=== PATIENT | female | born 1945 | race Caucasian/White ===

== ENCOUNTER 2018-07-13 14:12 | Inpatient (IN) | payer MEDICARE, OTHER, SELFPAY ==
[2018-07-13] VITALS (49 sets, daily range): BP systolic 113–177; BP diastolic 63–115; PULSE 91–152; RESP 2–44; TEMP 36.5–37.9; O2SAT 87–99
--- NOTE | 2018-07-13 14:29 | DI.RAD_ITS ---
SYMPTOM/DIAGNOSIS: SOB, HYPOXIA PORTABLE AP CHEST: Comparison is made with 07/23/16. The heart size is normal. There are underlying emphysematous and fibrotic changes. There are old bilateral rib fractures. No superimposed infiltrate, effusion or pulmonary edema is seen. There is a right shoulder prosthesis. IMPRESSION: No acute abnormality.
--- NOTE | 2018-07-13 14:33 | ED.GENADUL_ITS ---
Discharge Plan Disposition Patient Disposition: [facility] INPATIENT Condition: Stable Discharge Details Chief Complaint: SOB Clinical Impression: COPD with acute exacerbation, Tachycardia, Acute respiratory distress, Hypoxia Primary Care Provider: Katina Lopez ED Provider: Gabby Faith Home Meds and New Rx's Prescriptions: No Action pen needle, diabetic [BD Ultra-Fine Martha Pen Needle] 1 EACH needle 1 ea Miscellaneous DAILY Qty: 100 RF: 3 albuterol sulfate [Ventolin HFA] 8 GM HFA aerosol inhaler 2 puff Inhalation Q4H PRN PRNQty: 3 RF: 4 calcium carbonate-vitamin D3 1 EACH tablet 1 ea PO DAILY Qty: 90 RF: 6 benzonatate 100 MG capsule 100 mg PO TID PRNQty: 25 RF: 1 prednisone 5 MG tablet 5 - 10 mg PO DAILY Qty: 90 RF: 1 sulfamethoxazole-trimethoprim [Bactrim DS] 1 EACH tablet 1 tab-cap PO BID Q 3 WEEKS Qty: 56 RF: 4 Incruse Ellipta 62.5 MCG blister with device 1 inh Inhalation DAILY Qty: 1 RF: 6 Perforomist 20 MCG/2 ML solution for nebulization 20 mcg Inhalation BID Qty: 60 RF: 6 amlodipine 10 mg tablet 10 mg PO DAILY Qty: 30 RF: 12 enalapril maleate [Vasotec] 20 mg tablet 20 mg PO as directed Qty: 30 RF: 12 lansoprazole 30 mg capsule,delayed release(DR/EC) 30 mg PO DAILY Qty: 90 RF: 2 venlafaxine 75 mg capsule,extended release 24hr 75 mg PO DAILY Qty: 90 RF: 2 leflunomide 10 mg tablet 10 mg PO DAILY Qty: 90 RF: 4 clonazepam 1 mg tablet 1 mg PO QPM PRN (Reason: anxiety) Qty: 30 RF: 2 budesonide 0.5 mg/2 mL suspension for nebulization 0.5 mg Inhalation DAILY RF: 0 Medical Decision Making 1430 --73yo female with a history of COPD, lupus, multiple sclerosis, hyperte nsion, anxiety, depression, GERD and breast cancer who presents for progressively worsening shortness of breath over the past week, worse this morning. She finished a prednisone taper yesterday. Heart rate 140s, respirations 40s, Afebrile. O2 sat 87% on 2 L nasal cannula. This increased to 92% on nonrebreather. Patient states her baseline O2 on room air is low 90s. Pursed lip breathing, accessory muscle use noted upon entry to ED room. Diminished breath sounds throughout on lung exam. Differential diagnosis includes an acute COPD exacerbation, acute CHF, pneumonia, IA. Patient is DNR/DNI. Will place an IV, labs, EKG, portable chest x-ray, DuoNeb, Solu-Medrol and place on BiPAP. EKG notes a rate of 144, sinus tachycardia, no acute ST findings. 1510 --patient improved on BiPAP. Respiratory rate 20s-30s. Appears more comfortable. Air movement improved, slight increase in rhonchi after multiple nebs. 1545 --labs and imaging reviewed. White blood cell count 21 which is likely due to recent steroids. Troponin negative. BNP normal. Chest x-ray unremarkable. Patient now on 3 L nasal cannula and O2 sat low 90s. Patient appears much more comfortable. Heart rate still 130s. Patient states she normally runs between 140s and 160s. Due to respiratory distress with BiPAP on arrival, will admit for continued observation with nebs and steroids. 1600 --d/w hospitalist - accepts pt for admission. Due to patient's COPD, she may benefit from antibiotics. She has tolerated cephalosporins in the past. Will give a dose of Rocephin and Zithromax IV. Medical Records Medical records reviewed: Yes I reviewed the patient's medical records. Imaging Data Radiologic Study: Radiologist's impression: XR Chest, 1 View EXAM DATE/TIME: 07/13/2018 3:08 PM FINDINGS: Diffuse interstitial lung disease most suggestive of scarring. No definite focal consolidation. Prior right shoulder replacement. IMPRESSION: No definite evidence of acute cardiopulmonary disease. Lab Data Lab results reviewed: Yes I reviewed the patient's lab results. Laboratory Tests Range/Units 07/13/18 07/13/18 14:50 14:50 WBC (4.4-10.8) k/cumm 21.57 H RBC (4.00-5.20) m/cumm 5.22 H Hgb (12.0-15.5) g/dL 13.8 Hct (36.0-46.0) % 43.6 MCV (80-95) fL 83.5 MCH (27.0-33.0) pg 26.4 L MCHC (32.0-36.0) g/dL 31.7 L RDW (11.7-14.6) % 16.0 H Plt Count (130-400) x1000/uL 387 MPV (8.0-11.0) fL 10.0 Immature Gran % 0.0 Neutrophils % 90.0 Lymphocytes % 4.0 Monocytes % 6.0 Eosinophils % 0.0 Basophils % 0.0 Absolute Neutrophils (1.2-6.7) k/cumm 19.41 H Absolute Lymphocytes (1.2-3.4) k/cumm 0.86 L Absolute Monocytes (0.11-0.7) k/cumm 1.29 H Absolute Eosinophils (0.0-0.7) k/cumm 0.00 Absolute Basophils (0.0-0.2) k/cumm 0.00 Sodium (136-145) mmol/L 140 Potassium (3.5-5.1) mmol/L 3.4 L Chloride (98-107) mmol/L 101 Carbon Dioxide (21.0-32.0) mmol/L 24.1 Anion Gap (3-11) mmol/L 14.9 H BUN (7-18) mg/dL 17 Creatinine (0.55-1.02) mg/dL 0.67 Estimated GFR/1.73 m2 (mL/min/1.73m2) >= 60.00 Glucose (70-100) mg/dL 212 H Calcium (8.5-10.1) mg/dL 9.1 Magnesium (1.8-2.4) mg/dL 1.8 Total Bilirubin (0.2-1.0) mg/dL 0.5 AST (15-37) U/L 13 L ALT (12-78) U/L 20 Alkaline Phosphatase (46-116) U/L 89 Troponin I (0.00-0.06) ng/mL < 0.02 NT-Pro-B Natriuret Pep ( - 299) pg/mL 146 Total Protein (6.4-8.2) g/dL 7.7 Albumin (3.4-5.0) g/dL 3.5 ECG Data Attestation: I personally reviewed and interpreted this ECG (s) as follows: Interpretation: Rate of 144, sinus tachycardia no acute ST elevation or depression. QTc 446. QRS 94. HPI General Mode of arrival: wheelchair . Date/Time Provider Initiated Documentation: 07/13/18 14:15 . Limitations to Documentation: no limitations . Information obtained by: patient . HPI Narrative: Pt is a 73yo F w/ a h/o COPD, SLE, MS, HTN, Anxiety, depression, Breast cancer, GERD who presents to the ED w/ a c/o shortness of breath for the past week, worse this morning. She states she recently stopped a prednisone taper of 5 mg yesterday. She states she had been chronically on antibiotics for her COPD but stopped this recently and the last time was 1 month ago. She admits to a chronic cough. She denies any fever. She states she has been eating less over the past few days due to her worsening shortness of breath. She states that shortness of breath is worse with exertion and when laying flat. She denies any lower extremity swelling. She states she is not on home O2. Related Data Home Medications Medication Instructions Recorded Confirmed pen needle, diabetic [BD #100 ea 12/22/15 Ultra-Fine Martha Pen Needle] albuterol sulfate [Ventolin HFA] 2 puff INHALATION Q4H PRN PRN #3 03/07/16 07/13/18 puff calcium carbonate-vitamin D3 1 ea PO DAILY #90 tab-cap 07/16/16 07/13/18 benzonatate 100 mg PO TID PRN #25 tab-cap 07/23/16 prednisone 5 - 10 mg PO DAILY #90 tab-cap 01/09/17 07/13/18 sulfamethoxazole-trimethoprim 1 tab-cap PO BID Q 3 WEEKS #56 03/19/17 [Bactrim DS] tab-cap umeclidinium [Incruse Ellipta] 1 inh INHALATION DAILY #1 inhaler 08/13/17 formoterol fumarate [Perforomist] 20 mcg INHALATION BID #60 ml 12/17/17 amlodipine 10 mg tablet 10 mg PO DAILY #30 tab-cap 02/12/18 07/13/18 enalapril maleate 20 mg tablet 20 mg PO as directed #30 tab-cap 02/12/18 07/13/18 lansoprazole 30 mg capsule,delayed 30 mg PO DAILY #90 tab-cap 03/14/18 07/13/18 release venlafaxine ER 75 mg 75 mg PO DAILY #90 tab-cap 03/14/18 07/13/18 capsule,extended release 24 hr leflunomide 10 mg tablet 10 mg PO DAILY #90 tab-cap 05/13/18 07/13/18 clonazepam 1 mg tablet 1 mg PO QPM PRN #30 tab-cap 05/14/18 07/13/18 budesonide 0.5 mg INHALATION DAILY 07/13/18 07/13/18 Previous Rx's Medication Instructions Recorded prednisone 5 - 10 mg PO DAILY #90 tab-cap 01/09/17 sulfamethoxazole-trimethoprim 1 tab-cap PO BID Q 3 WEEKS #56 03/19/17 [Bactrim DS] tab-cap umeclidinium [Incruse Ellipta] 1 inh INHALATION DAILY #1 inhaler 08/13/17 formoterol fumarate [Perforomist] 20 mcg INHALATION BID #60 ml 12/17/17 amlodipine 10 mg tablet 10 mg PO DAILY #30 tab-cap 02/12/18 enalapril maleate 20 mg tablet 20 mg PO as directed #30 tab-cap 02/12/18 lansoprazole 30 mg capsule,delayed 30 mg PO DAILY #90 tab-cap 03/14/18 release venlafaxine ER 75 mg 75 mg PO DAILY #90 tab-cap 03/14/18 capsule,extended release 24 hr leflunomide 10 mg tablet 10 mg PO DAILY #90 tab-cap 05/13/18 clonazepam 1 mg tablet 1 mg PO QPM PRN #30 tab-cap 05/14/18 Allergies Allergy/AdvReac Type Severity Reaction Status Date / Time glatiramer (copolymer 1) Allergy Severe Anaphylaxsi Unverified 06/27/17 10:35 [glatiramer] s minocycline Allergy Intermediate BLUE Unverified 06/27/17 10:35 NAILS; FACIAL RASH Penicillins Allergy Intermediate HIVES;PEDAL Unverified 06/27/17 10:35 EDEMA levofloxacin AdvReac Intermediate TENDONITIS Unverified 06/27/17 10:35 hydroxychloroquine AdvReac Unverified 06/27/17 10:35 [From Plaquenil] morphine AdvReac Unverified 06/27/17 10:35 Review of Systems Review of Systems All systems reviewed & are unremarkable except as noted in HPI and below Constitutional Reports as per HPI, Denies chills and Denies fever(s) Eyes Denies blurry vision ENT Denies dizziness, Denies sore throat and Denies throat swelling Cardiovascular Denies chest pain and Reports dyspnea Respiratory Reports cough and Reports dyspnea Gastrointestinal Denies abdominal pain, Denies diarrhea and Denies vomiting Genitourinary Denies hematuria and Denies dysuria Musculoskeletal Denies back pain and Denies numbness Integumentary/Breasts Denies lesions and Denies rash Neurologic Denies dizziness, Denies focal weakness and Denies numbness Allergic/Immunologic Denies throat swelling [facility] Medical History Koch's palsy COPD (chronic obstructive pulmonary disease) Depression GERD (gastroesophageal reflux disease) Hx of breast cancer Hypertension Multiple sclerosis Osteoporosis SLE (systemic lupus erythematosus) Surgical History Bilateral salpingectomy with oophorectomy Breast, Mastectomy Bilateral Colonoscopy - MAC (06/03/17) Extraction of cataract Fracture, Open Treatment (10/01/14) Hysterectomy, Laproscopic Social History Smoking/Tobacco Use Status: Former Tobacco Use Alcohol Intake: never Drug use: Rarely Substance use type: marijuana Do you feel safe at home: Yes Do you feel safe in your relationship?: Yes Exam Const General: cooperative and acute distress moderate and respiratory Orientation: alert, awake and oriented x3 HENMT Head: normal to inspection Ears: hearing grossly normal bilaterally, external ears normal and TM's normal bilaterally General nose exam: external nose normal Face and sinus: normal facial exam Mouth: oral mucosae normal Teeth and gingiva: dentition normal Throat: posterior oropharynx normal Eyes General: appearance normal, both eyes and all related structures Eyelids: eyelids normal EOM: EOM intact bilaterally Neck Neck: normal visual inspection Lymphatic: no lymphadenopathy noted Chest Chest: normal inspection of the chest Resp Effort & Inspection: normal respiratory effort, not able to speak in complete sentences (2-3 word sentences), pursed lip breathing, tachypneic and uses accessory muscles Auscultation: diminished lung sounds bilaterally throughout Cardio Rate: tachycardic Rhythm: regular rhythm GI Inspection: normal to inspection Palpation: soft, not firm, no guarding, no hepatosplenomegaly, no masses and nontender Auscultation: normal bowel sounds Back/Spine/Pelvis Back: no CVA tenderness Skin General skin exam: no rashes or lesions noted Neuro General: alert and awake Cognition: normal cognition Speech: speech normal Motor: muscle tone normal throughout Sensory Exam: no sensory deficits noted Extrem General: normal to inspection, full ROM and no edema Psych Appearance: grossly normal Mental Status: mental status grossly normal Speech and Movement: speech and movement normal Affect: normal affect Thought Process: normal
[2018-07-13] MEDS: Albuterol/Ipratropium 3 ML UPD VIAL ×2 (14:55→14:58)
[2018-07-13] MEDS: methylPREDNISolone SUCC 125 MG VIAL IVP (15:04)
[2018-07-13 15:05] LABS: HCT 43.6 % (36.0-46.0); HGB 13.8 g/dL (12.0-15.5); Mean Corp. HGB Concentration 31.7 g/dL (32.0-36.0); Mean Corpuscular Hemoglobin 26.4 pg (27.0-33.0); Mean Corpuscular Volume 83.5 fL (80-95); Platelet Count 387 x1000/uL (130-400); RBC 5.22 m/cumm (4.00-5.20); White Blood Cell Count 21.57 k/cumm (4.4-10.8)
[2018-07-13 15:24] LABS: Absolute Lymphocyte Count 0.86 k/cumm (1.2-3.4); Absolute Neutrophil Count 19.41 k/cumm (1.2-6.7)
[2018-07-13 15:25] LABS: Absolute Monocyte Count 1.29 k/cumm (0.11-0.7)
[2018-07-13 15:38] LABS: ALT 20 U/L (12-78); AST 13 U/L (15-37); Albumin 3.5 g/dL (3.4-5.0); Alkaline Phosphatase 89 U/L (46-116); Anion Gap 14.9 mmol/L (3-11); BUN 17 mg/dL (7-18); Bilirubin, Total 0.5 mg/dL (0.2-1.0); CO2 24.1 mmol/L (21.0-32.0); CREATININE 0.67 mg/dL (0.55-1.02); Calcium 9.1 mg/dL (8.5-10.1); Chloride 101 mmol/L (98-107); Glucose 212 mg/dL (70-100); Magnesium 1.8 mg/dL (1.8-2.4); NT-proBNP 146 pg/mL; Potassium 3.4 mmol/L (3.5-5.1); Sodium 140 mmol/L (136-145); Total Protein 7.7 g/dL (6.4-8.2); Troponin I < 0.02 ng/mL (0.00-0.06)
--- NOTE | 2018-07-13 15:45 | DI.VRAD_ITS ---
EXAM: XR Chest, 1 View EXAM DATE/TIME: 07/13/2018 3:08 PM CLINICAL HISTORY: 73 years old, female; Signs and symptoms; Other: SOB, hypoxia, R/O acute disease TECHNIQUE: Imaging protocol: XR of the chest, 1 view. COMPARISON: CR LEFT RIBS TO INCLUDE CXR 07/23/2016 11:05 AM FINDINGS: Diffuse interstitial lung disease most suggestive of scarring. No definite focal consolidation. Prior right shoulder replacement. IMPRESSION: No definite evidence of acute cardiopulmonary disease. Dictated and Authenticated by: eMrritt Vines MD. Ordering:LINDA Pierre MD
[2018-07-13] MEDS: cefTRIAXone 1 GM/50 ML BAG IVPB (16:29)
[2018-07-13] MEDS: AZITHROMYCIN 500 MG in Normal Saline 250 ML 250 MG IVPB (16:51)
[2018-07-13] MEDS: Normal Saline 1,000 ML 100 ML IV (18:45)
[2018-07-13] MEDS: Enoxaparin 40 MG/0.4 ML SYR SC (18:55)
--- NOTE | 2018-07-13 19:05 | HPE_ITS ---
Date of service: 07/13/18 Time of Service: 18:28 Assessment and Plan (1) COPD with acute exacerbation: Current visit: Yes Status: Acute Because of presentation in extremis, was admitted to the ICU. Treat with azithromycin, rocephin. Obtain blood cx, sputum cx. No evidence of PNA, but the patient is at high risk of infection due to being chronically immunosuppressed - will have a low threshold for expanding abx. Seems to have responded to this abx therapy on prior hospitalization. Additionally, treat with IV solumedrol, pulmicort, nebs. Wean O2 as tolerated - however, the patient likely will need O2 on discharge home. (2) Bronchiectasis: Current visit: No Status: Acute As above (3) Acute and chronic respiratory failure with hypoxia: Current visit: Yes Status: Acute As above (4) SIRS (systemic inflammatory response syndrome): Current visit: Yes Status: Acute Obtaining blood cx. In addition to abx therapy, will treat with IV fluids. (5) Chronic adrenal insufficiency: Current visit: Yes Status: Acute Patient must never go without steroids. She will require a very slow taper. (6) Steroid-induced hyperglycemia: Current visit: Yes Status: Acute Check A1C. Cover with SSI for now (7) Hypokalemia: Current visit: Yes Status: Acute Replete (8) GERD (gastroesophageal reflux disease): Current visit: Yes Status: Chronic PPI - find out the type of home PPI that she takes (she can't remember). (9) Chronic tachycardia: Current visit: Yes Status: Acute I wonder how much of this could be due to untreated anxiety - however, as this is now long standing and EKG does have evidence of R-sided dysfunction, I would like to check an echo. For now, aggressively hydrate and monitor in ICU as could also be part of the SIRS picture. (10) Depression: Current visit: No Status: Chronic Contnue venlafaxine (11) Anxiety: Current visit: No Status: Chronic Continue venlafaxine and clonopin. (12) Multiple sclerosis: Current visit: No Status: Acute PT/OT consults (13) Systemic lupus erythematosus: Current visit: No Status: Acute For now, on high dose systemic steroids. 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 (14) DVT prophylaxis: Current visit: Yes Status: Acute Lovenox + SCD's/TEDS (15) Discharge planning issues: Current visit: Yes Status: Acute Patient changed her code status to full code today. May benefit from palliative care consult. History of Present Illness Chief Complaint: I couldn't breathe Narrative: Ms Mathew is a 73 year old female with PMHx of COPD, not on home oxygen therapy (though she was told before she should be on it), as well as bronchiectasis and question of underlying interstitial lung disease, as well as RA and SLE, on chronic prednisone, chronic adrenal insufficiency, and history of prior pneumonia, who presented to [facility] ED today complaining of shortness of breath. The patient endorses chronic shortness of breath, but states she felt a lot worse for the last 4 days. She used to be on chronic suppressive antibiotics for her recurrent pulmonary infections, but evidently has had issues with insurance coverage thereof for the last month or so, so she hasn't been taking them. She denies fever, chills, runny nose, sore throat, chest pain, palpitations. She does have a cough, which is productive of clear sputum, and has been wheezing. She states she always has a high heart r ate, but that it hasn't been addressed. In the ED, she was in significant respiratory distress with a respiratory rate of 40 and HR of 140, requiring BiPAP. She was treated with steroids and nebulize rs. She was able to be weaned off to 3L of O2 by AL, but remains rather tachycardic in 130's-140's (sinus). We were asked to admit the patient for further care. Review of Systems Review of Systems 12 systems reviewed. Pertinent positives and negatives are as per HPI. [facility] Medical History Bronchiectasis (Chronic) Chronic adrenal insufficiency (Chronic) Chronic tachycardia (Chronic) Chronic use of steroids (Chronic) Hx of cancer of uterus (Chronic) Hx of cervical cancer (Chronic) Hypoxia (Chronic) IBS (irritable bowel syndrome) (Chronic) Insomnia (Chronic) Lupus nephritis (Chronic) Osteoarthritis (Chronic) RLS (restless legs syndrome) (Chronic) Rheumatoid arthritis (Chronic) ILD (interstitial lung disease) (Suspected) Koch's palsy COPD (chronic obstructive pulmonary disease) Depression GERD (gastroesophageal reflux disease) Hx of breast cancer Hypertension Multiple sclerosis Osteoporosis SLE (systemic lupus erythematosus) Surgical History History of appendectomy (Chronic) History of right shoulder replacement (Resolved) History of surgery on right wrist (Resolved) Personal history of bleeding following renal biopsy (Resolved) Pilonidal cyst (Resolved) S/P hip hemiarthroplasty (Resolved) S/P tonsillectomy (Resolved) Bilateral salpingectomy with oophorectomy Breast, Mastectomy Bilateral Colonoscopy - MAC (06/03/17) Extraction of cataract Fracture, Open Treatment (10/01/14) Hysterectomy, Laproscopic Family History Father Heart disease Stroke Hypertension Mother Hypertension Social History Smoking/Tobacco Use Status: Former Tobacco Use Pack-years: 30 Alcohol Intake: never Drug use: Rarely Substance use type: marijuana Do you feel safe at home: Yes Do you feel safe in your relationship?: Yes Meds Home Medications Medication Instructions Recorded Confirmed Type albuterol sulfate [Ventolin HFA] 2 puff INHALATION Q4H PRN PRN #3 03/07/16 07/13/18 History puff calcium carbonate-vitamin D3 1 ea PO DAILY #90 tab-cap 07/16/16 07/13/18 History prednisone 5 - 10 mg PO DAILY #90 tab-cap 01/09/17 07/13/18 Rx umeclidinium [Incruse Ellipta] 1 inh INHALATION DAILY #1 inhaler 08/13/17 Rx amlodipine 10 mg tablet 10 mg PO DAILY #30 tab-cap 02/12/18 07/13/18 Rx enalapril maleate 20 mg tablet 20 mg PO as directed #30 tab-cap 02/12/18 07/13/18 Rx venlafaxine ER 75 mg 75 mg PO DAILY #90 tab-cap 03/14/18 07/13/18 Rx capsule,extended release 24 hr leflunomide 10 mg tablet 10 mg PO DAILY #90 tab-cap 05/13/18 07/13/18 Rx clonazepam 1 mg tablet 1 mg PO QPM PRN #30 tab-cap 05/14/18 07/13/18 Rx budesonide 0.5 mg INHALATION DAILY 07/13/18 07/13/18 History dicyclomine 10 - 20 mg PO TID PRN PRN 07/13/18 07/13/18 History Allergies Allergy/AdvReac Type Severity Reaction Status Date / Time glatiramer (copolymer 1) Allergy Severe Anaphylaxsi Unverified 06/27/17 10:35 [glatiramer] s minocycline Allergy Intermediate BLUE Unverified 06/27/17 10:35 NAILS; FACIAL RASH Penicillins Allergy Intermediate HIVES;PEDAL Unverified 06/27/17 10:35 EDEMA levofloxacin AdvReac Intermediate TENDONITIS Unverified 06/27/17 10:35 hydroxychloroquine AdvReac Unverified 06/27/17 10:35 [From Plaquenil] morphine AdvReac Unverified 06/27/17 10:35 Exam Narrative Exam Narrative: General: very pleasant frail elderly female, appears anxious and short of breath, pausing to breathe after about every 4-5 words, laying in bed. Neurological: A&Ox3, no focal deficits Psychiatric: anxious Skin: dry; otherwise, intact HEENT: Atraumatic, normocephalic; EOMI, dry MM, whitish film on the tongue (thrush), no submandibular or cervical lymphadenopathy; no goiter or JVD Cardiovascular: RRR, tachycardic, no m/r/g Lungs: Rhonchi on expiration B Gastrointestinal: abdomen is soft, nontender, nondistended Extremities: 1+ BLE pedal pulses; no e/c/c BLE's Results Imaging Additional studies: CXR: No definite evidence of acute cardiopulmonary disease. EKG: Sinus tach, HR 144, nonspecific ST-T changes, no acute ischemia Labs : 07/13/18 14:50 07/13/18 14:50 Laboratory Results - last 24 hr 07/13/18 07/13/18 14:50 14:50 WBC 21.57 H RBC 5.22 H Hgb 13.8 Hct 43.6 MCV 83.5 MCH 26.4 L MCHC 31.7 L RDW 16.0 H Plt Count 387 MPV 10.0 Immature Gran % 0.0 Neutrophils % 90.0 Lymphocytes % 4.0 Monocytes % 6.0 Eosinophils % 0.0 Basophils % 0.0 Absolute Neutrophils 19.41 H Absolute Lymphocytes 0.86 L Absolute Monocytes 1.29 H Absolute Eosinophils 0.00 Absolute Basophils 0.00 Sodium 140 Potassium 3.4 L Chloride 101 Carbon Dioxide 24.1 Anion Gap 14.9 H BUN 17 Creatinine 0.67 Estimated GFR/1.73 m2 >= 60.00 Glucose 212 H Calcium 9.1 Magnesium 1.8 Total Bilirubin 0.5 AST 13 L ALT 20 Alkaline Phosphatase 89 Troponin I < 0.02 NT-Pro-B Natriuret Pep 146 Total Protein 7.7 Albumin 3.5 Last Vital Signs Temp 36.5 C 07/13/18 18:08 Pulse 127 H 07/13/18 18:08 Resp 30 H 07/13/18 18:08 BP 114/63 07/13/18 18:08 Pulse Ox 96 07/13/18 18:08
[2018-07-13] MEDS: Budesonide 0.5 MG/2 ML UPD VIAL (20:11)
[2018-07-13] MEDS: Benzonatate 100 MG CAP PO (20:18)
[2018-07-13] MEDS: guaiFENesin 600 MG TABCR PO (20:19)
[2018-07-13] MEDS: Potassium Chloride 20 MEQ TABCR 40 MEQ PO (20:19)
[2018-07-13] MEDS: Budesonide 0.5 MG/2 ML UPD VIAL UPD (22:09)
[2018-07-13] MEDS: methylPREDNISolone SUCC 125 MG VIAL 80 MG IVP (22:16)
[2018-07-13] MEDS: Melatonin 3 MG TAB 9 MG PO (22:19)
[2018-07-13] MEDS: clonazePAM 1 MG TAB PO (22:20)
[2018-07-13] MEDS: Enalapril 5 MG TAB 10 MG PO (22:20)
[2018-07-13] MEDS: Nystatin 500000 UNITS/5 ML SUSP 5ML CUP PO (23:43)
[2018-07-13] MEDS: Insulin Aspart 300 UNITS/3 ML PEN SC (23:49)
[2018-07-14] VITALS (32 sets, daily range): BP systolic 98–161; BP diastolic 47–106; PULSE 68–111; RESP 1–40; TEMP 36.3–36.9; O2SAT 93–100
[2018-07-14] MEDS: Normal Saline 1,000 ML 100 ML IV ×2 (03:37→16:24)
[2018-07-14] MEDS: Nystatin 500000 UNITS/5 ML SUSP 5ML CUP PO (05:43)
[2018-07-14] MEDS: Albuterol/Ipratropium 3 ML UPD VIAL UPD ×4 (05:55→23:20)
[2018-07-14] MEDS: methylPREDNISolone SUCC 125 MG VIAL 80 MG IVP ×3 (05:56→23:17)
[2018-07-14 06:37] LABS: Abs Immature Grans 0.07 k/cumm (0.0-0.09); Absolute Basophil Count 0.01 k/cumm (0.0-0.2); Absolute Monocyte Count 0.19 k/cumm (0.11-0.7); Basophils % 0.1; HCT 36.9 % (36.0-46.0); HGB 11.6 g/dL (12.0-15.5); Immature Grans % 0.5; Lymphocytes % 3.7; Mean Corp. HGB Concentration 31.4 g/dL (32.0-36.0); Mean Corpuscular Hemoglobin 26.6 pg (27.0-33.0); Mean Corpuscular Volume 84.6 fL (80-95); Mean Platelet Volume 10.2 fL (8.0-11.0); Monocytes % 1.3; Neutrophils % 94.4; Platelet Count 272 x1000/uL (130-400); RBC 4.36 m/cumm (4.00-5.20); White Blood Cell Count 14.76 k/cumm (4.4-10.8)
[2018-07-14 06:56] LABS: Magnesium 1.9 mg/dL (1.8-2.4); TSH (W/Ref FT4) 0.21 uIU/mL (0.358-3.74)
[2018-07-14 06:57] LABS: BUN 18 mg/dL (7-18); Glucose 174 mg/dL (70-100); Sodium 141 mmol/L (136-145)
[2018-07-14 06:58] LABS: Anion Gap 11.2 mmol/L (3-11); CO2 22.8 mmol/L (21.0-32.0); Chloride 107 mmol/L (98-107); Potassium 4.4 mmol/L (3.5-5.1)
[2018-07-14 07:14] LABS: FREE T4 1.01 ng/dL (0.76-1.46)
[2018-07-14 07:29] LABS: Absolute Lymphocyte Count 0.55 k/cumm (1.2-3.4); Absolute Neutrophil Count 13.93 k/cumm (1.2-6.7)
[2018-07-14 07:34] LABS: Hemoglobin A1C 6.1 % (4.5-6.2)
--- NOTE | 2018-07-14 07:50 | PDOC.CMIN ---
- If Service Date Differs Date of service: 07/14/18 Time of Service: 07:51 Care Management Initial Assess REASON FOR HOSPITALIZATION:: Acute exacerbation of COPD; acute hypoxic respiratory failure PAST MEDICAL HISTORY/PAST SURGICAL HISTORY:: Past Medical History: Bronchiectasis , Chronic adrenal insufficiency,. Chronic tachycardia, Chronic use of steroids , Hx of cancer of uterus, Hx of cervical cancer, Hypoxia (Chronic) IBS (irritable bowel syndrome),. Insomnia, Lupus nephritis, Osteoarthritis, RLS (restless legs syndrome), Rheumatoid arthritis, ILD (interstitial lung disease), Koch's palsy,. COPD (chronic obstructive pulmonary disease)Depression, GERD (gastroesophageal reflux disease), Hx of breast cancer, Hypertension Multiple sclerosis, Osteoporosis, SLE (systemic lupus erythematosus). Past Surgical History: History of appendectomy (Chronic),History of right shoulder replacement,. History of surgery on right wrist, Personal history of bleeding following renal biopsy, Pilonidal cyst, S/P hip hemiarthroplasty, S/P tonsillectomy, Bilateral salpingectomy with oophorectomy, Breast, Mastectomy Bilateral. Colonoscopy - MAC (06/03/17). Extraction of cataract. Fracture, Open Treatment (10/01/14). Hysterectomy, Laproscopic PREVIOUS FUNCTIONAL STATUS/SOCIAL/FAMILY SUPPORTS:: Rafaela is a 73 y/o woman who lives with her . They have 2 homes. One is an apartment with a full flight of outside stairs to access the apartment where they spend their weekdays during the winter. They also have a multi-level home in [place] where they spend weekends and guevara. That home has 4 levels with 6-7 stairs between levels which are necessary to access bathroom facilities from the main living area.They have 2 daughters(hers) and 3 sons (his). Both her and children, especially her daughters, are very supportive. Rafaela experiences extreme shortness of breath and becomes tachycardiac with even mild activity. Walking from living room to kitchen and back requires at least 10 minutes for recovery. She describes her daily life as doing nothing but laying on the couch.She is unable to drive. CURRENT FUNCTIONAL STATUS:: Rafaela was sitting up in the chair receiving oxygen via nasal cannula during CM visit. She was smiling and open and engaged in the conversation, often displaying a good sense of humor. She has just worked with PT and had successfully ambulated 200 feet in the hallway which she tolerated well while using oxygen. ADVANCE DIRECTIVES:: Advanced directives on file. Chester Mathew is her healthcare agent. Has patient been provided with information about the portal?: Yes Did the patient sign up for the portal?: Yes (states she has frederick) CODE STATUS:: Full Code CODE STATUS COMMENT:: Has requested to review previously completed Advanced directives. Provided a copy of same and will discuss any desired changes tomorrow. INSURANCE COVERAGE / FINANCIAL ISSUES:: Medicare CURRENT HOME/COMMUNITY SERVICES/EQUIPMENT:: Rafaela lives in a multi-level home in [place] and spends time in an apartment in [facility] during the week. No services at this time PRIMARY CARE PHYSICIAN:: Katina Lopez POTENTIAL DISCHARGE NEEDS:: Possible STR for strengthening . Would like Pulmonary Rehab and possible home services. PATIENT/FAMILY EDUCATION NEEDS:: Discharge education, limitations, follow-up plan of care, palliative care at time of discharge, Ask me 3 and self management. ANTICIPATED BARRIERS TO DISCHARGE:: None identified TRANSPORTATION:: Via private car with family at time of discharge. PLAN:: Rafaela is receiving IV antibiotics, steroids and pulmonary support. She remains in the ICU but will likey transfer to the floor later today. She remains on telemetry. PT consult was completed and short term rehab was recommended to regain independent pre-morbid level with least restrictive device, in anticipation of home with . CM to continue to provide support to patient, family, care team ongoing discharge planning.
--- NOTE | 2018-07-14 09:41 | CMPROGNOTE_ITS ---
- If Service Date Differs Date of service: 07/14/18 Time of Service: 09:40 Care Management Progress Note /O:Hesham remains in the ICU. No change in status today per report his son to him did visit him. Speech consult was ordered however due to his mental status she was unable to complete the evaluation. Per report speech will need to be contacted when Hesham is alert and able to participate. Per report he is having loose stools, nutrition was consulted related to NG tube feedings. Hesham does not have advanced directive on file next of kin is his son Ryan [phone] who will need to be consulted for medical decisions. A: 70 year old male admitted to [facility] 07/08/18 for AMS-likely due to alcohol withdrawal per MD. P: Hesham is currently being treated for alcohol withdrawal, and altered mental status. He remains in the ICU at this time. CM to continue to provide support discharge planning and disposition.
[2018-07-14] MEDS: Pantoprazole 40 MG TABCR PO (11:19)
[2018-07-14] MEDS: Calcium 600mg/Vit D 200U TAB 1 TAB PO (11:19)
[2018-07-14] MEDS: Benzonatate 100 MG CAP PO ×3 (11:19→23:17)
[2018-07-14] MEDS: amLODIPine 10 MG TAB PO (11:20)
[2018-07-14] MEDS: Venlafaxine 37.5 MG CAPCR 75 MG PO (11:20)
[2018-07-14] MEDS: guaiFENesin 600 MG TABCR PO ×2 (11:20→23:17)
[2018-07-14] MEDS: Enalapril 5 MG TAB 20 MG PO (11:20)
[2018-07-14] MEDS: Budesonide 0.5 MG/2 ML UPD VIAL UPD ×2 (11:52→20:38)
--- NOTE | 2018-07-14 12:26 | PGE_ITS ---
Date of Service Date of service: 07/14/18 Time of Service: 12:16 Assessment and Plan (1) COPD with acute exacerbation: Current visit: Yes Status: Acute Improving - transfer out of ICU, but keep on tele for now. May be able to d/c tele later today. Continue azithromycin, rocephin, solumedrol, pulmicort, nebs. Wean O2 as tolerated - however, the patient likely will need O2 on discharge home. (2) Bronchiectasis: Current visit: No Status: Acute As above (3) Acute and chronic respiratory failure with hypoxia: Current visit: Yes Status: Acute As above (4) SIRS (systemic inflammatory response syndrome): Current visit: Yes Status: Acute Blood cultures pending. Continue azithromycin, rocephin (Day 2) and IVF. (5) Chronic adrenal insufficiency: Current visit: Yes Status: Acute Continue steroids. (6) Steroid-induced hyperglycemia: Current visit: Yes Status: Acute Cover with SSI. A1C is 6.1, so technically the patient is prediabetic - likely steroid related. She could benefit from being on metformin as outpatient as well as nutrition counseling. (7) Hypokalemia: Current visit: Yes Status: Acute Repleted (8) GERD (gastroesophageal reflux disease): Current visit: Yes Status: Chronic Continue protonix (9) Chronic tachycardia: Current visit: Yes Status: Acute Improved - ? etiology. Await echo and continue to monitor on tele until echo results are available (wo rried about severe pulmonary hypertension/RV failure). (10) Depression: Current visit: No Status: Chronic Contnue venlafaxine (11) Anxiety: Current visit: No Status: Chronic Continue venlafaxine and clonopin. (12) Multiple sclerosis: Current visit: No Status: Acute PT/OT consults (13) Systemic lupus erythematosus: Current visit: No Status: Acute Continue high dose systemic steroids. 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 (14) DVT prophylaxis: Current visit: Yes Status: Acute Lovenox + SCD's/TEDS (15) Discharge planning issues: Current visit: Yes Status: Acute Meeting with palliative care right now to discuss code status. Transferred out of ICU Subjective Interval history since last seen: States she feels a lot better as far as her breathing. She has been coughing and feels the cough may soon become productive. She continues to wheeze. Her O2 sats on 4L of O2 are in high 90's. She felt a little dizzy when walking. Denies chest pain, nausea, vomiting. Exam Narrative Exam Narrative: General: Very pleasant elderly female; anxious, looks to be in good spirits - on a breathing treatment while talking to me, mildly tachypenic. HEENT: Atraumatic, normocephalic; EOMI, MMM, Cardiovascular: RRR, tachycardic, no m/r/g Lungs: Rhonchi on expiration B Gastrointestinal: abdomen is soft, nontender, nondistended Extremities: 1+ BLE pedal pulses; no e/c/c BLE's Objective Objective Clinical Data: Abnormal lab results 07/13/18 07/13/18 07/14/18 Range/Units 14:50 14:50 06:15 WBC 21.57 H (4.4-10.8) k/cumm RBC 5.22 H (4.00-5.20) m/cumm Hgb (12.0-15.5) g/dL MCH 26.4 L (27.0-33.0) pg MCHC 31.7 L (32.0-36.0) g/dL RDW 16.0 H (11.7-14.6) % Absolute Neutrophils 19.41 H (1.2-6.7) k/cumm Absolute Lymphocytes 0.86 L (1.2-3.4) k/cumm Absolute Monocytes 1.29 H (0.11-0.7) k/cumm Potassium 3.4 L (3.5-5.1) mmol/L Anion Gap 14.9 H (3-11) mmol/L Glucose 212 H (70-100) mg/dL Calcium (8.5-10.1) mg/dL AST 13 L (15-37) U/L TSH 0.21 L (0.358-3.74) uIU/mL 07/14/18 07/14/18 Range/Units 06:15 06:15 WBC 14.76 H D (4.4-10.8) k/cumm RBC (4.00-5.20) m/cumm Hgb 11.6 L D (12.0-15.5) g/dL MCH 26.6 L (27.0-33.0) pg MCHC 31.4 L (32.0-36.0) g/dL RDW 16.0 H (11.7-14.6) % Absolute Neutrophils 13.93 H (1.2-6.7) k/cumm Absolute Lymphocytes 0.55 L (1.2-3.4) k/cumm Absolute Monocytes (0.11-0.7) k/cumm Potassium (3.5-5.1) mmol/L Anion Gap 11.2 H (3-11) mmol/L Glucose 174 H (70-100) mg/dL Calcium 8.0 L (8.5-10.1) mg/dL AST (15-37) U/L TSH (0.358-3.74) uIU/mL Vital Signs Temperature 36.3 C L 07/14/18 10:05 Temperature Source Temporal Artery Scan 07/14/18 10:05 Pulse 100 H 07/14/18 11:52 Pulse 92 H 07/14/18 11:00 Respiratory Rate 19 07/14/18 11:52 Respiratory Effort 07/14/18 10:05 Respiratory Depth Shallow 07/14/18 10:05 Respiratory Pattern Normal 07/14/18 10:05 Blood Pressure 98/50 L 07/14/18 08:00 Blood Pressure Mean 62 07/14/18 08:00 Blood Pressure Position Supine 07/14/18 03:27 Pulse Oximetry 97 07/14/18 11:53 Oxygen Delivery Method Nasal Cannula 07/14/18 11:53 Oxygen Flow Rate 4 07/14/18 11:53 Fraction of Inspired Oxygen (FIO2) 45 07/13/18 14:58 Pain Level 0 07/14/18 10:05 Intake & Output 07/13/18 07/14/18 07/14/18 23:59 11:59 23:59 Intake Total 720 / 720 1104.667 / 1104.667 Output Total 1100 / 1100 1200 / 1200 Balance -380 / -380 -95.333 / -95.333 Weight 50.1 kg 52.3 kg Intake: IV 300 / 300 886.667 / 886.667 Oral 420 / 420 218 / 218 Output: Urine 1100 / 1100 1200 / 1200 Other: Urine Color Yellow Yellow Urine Appearance Clear Clear Urine Odor Normal Normal Voiding Methods Bedside Commode Bedside Commode Laboratory Results WBC 14.76 k/cumm (4.4-10.8) H D 07/14/18 06:15 RBC 4.36 m/cumm (4.00-5.20) 07/14/18 06:15 Hgb 11.6 g/dL (12.0-15.5) L D 07/14/18 06:15 Hct 36.9 % (36.0-46.0) 07/14/18 06:15 MCV 84.6 fL (80-95) 07/14/18 06:15 MCH 26.6 pg (27.0-33.0) L 07/14/18 06:15 MCHC 31.4 g/dL (32.0-36.0) L 07/14/18 06:15 RDW 16.0 % (11.7-14.6) H 07/14/18 06:15 Plt Count 272 x1000/uL (130-400) D 07/14/18 06:15 MPV 10.2 fL (8.0-11.0) 07/14/18 06:15 Immature Gran % 0.5 07/14/18 06:15 Neutrophils % 94.4 07/14/18 06:15 Lymphocytes % 3.7 07/14/18 06:15 Monocytes % 1.3 07/14/18 06:15 Eosinophils % 0.0 07/14/18 06:15 Basophils % 0.1 07/14/18 06:15 Absolute Neutrophils 13.93 k/cumm (1.2-6.7) H 07/14/18 06:15 Absolute Lymphocytes 0.55 k/cumm (1.2-3.4) L 07/14/18 06:15 Absolute Monocytes 0.19 k/cumm (0.11-0.7) 07/14/18 06:15 Absolute Eosinophils 0.00 k/cumm (0.0-0.7) 07/14/18 06:15 Absolute Basophils 0.01 k/cumm (0.0-0.2) 07/14/18 06:15 Sodium 141 mmol/L (136-145) 07/14/18 06:15 Potassium 4.4 mmol/L (3.5-5.1) D 07/14/18 06:15 Chloride 107 mmol/L (98-107) 07/14/18 06:15 Carbon Dioxide 22.8 mmol/L (21.0-32.0) 07/14/18 06:15 Anion Gap 11.2 mmol/L (3-11) H 07/14/18 06:15 BUN 18 mg/dL (7-18) 07/14/18 06:15 Creatinine 0.70 mg/dL (0.55-1.02) 07/14/18 06:15 Estimated GFR/1.73 m2 >= 60.00 (mL/min/1.73m2) 07/14/18 06:15 Glucose 174 mg/dL (70-100) H 07/14/18 06:15 Hemoglobin A1c 6.1 % (4.5-6.2) 07/14/18 06:15 Calcium 8.0 mg/dL (8.5-10.1) L 07/14/18 06:15 Magnesium 1.9 mg/dL (1.8-2.4) 07/14/18 06:15 Total Bilirubin 0.5 mg/dL (0.2-1.0) 07/13/18 14:50 AST 13 U/L (15-37) L 07/13/18 14:50 ALT 20 U/L (12-78) 07/13/18 14:50 Alkaline Phosphatase 89 U/L (46-116) 07/13/18 14:50 Troponin I < 0.02 ng/mL (0.00-0.06) 07/13/18 14:50 NT-Pro-B Natriuret Pep 146 pg/mL (-299) 07/13/18 14:50 Total Protein 7.7 g/dL (6.4-8.2) 07/13/18 14:50 Albumin 3.5 g/dL (3.4-5.0) 07/13/18 14:50 TSH 0.21 uIU/mL (0.358-3.74) L 07/14/18 06:15 Free T4 1.01 ng/dL (0.76-1.46) 07/14/18 06:15
--- NOTE | 2018-07-14 12:44 | IN_ITS ---
Date of service: 07/14/18 Time of Service: 09:15 PT Notes Inpatient Physical Therapy Evaluation Date: 07/14/2018 Referring Doctor: Rochelle Buckner MD PT Orders: PT CONSULT: Eval and treat Precautions: Fall. Standard. Patient Profile/Admitting Diagnosis: Patient is a 73-year-old female admitted in the ICU on 07/13/2018 diagnosis of acute COPD, acute hypoxic respiratory failure, and steroid-induced hyperglycemia. Patient presents with reduced activity yulia erance, generalized weakness, and shortness of breath. PMHX: Medical History Bronchiectasis (Chronic) Chronic adrenal insufficiency (Chronic) Chronic tachycardia (Chronic) Chronic use of steroids (Chronic) Hx of cancer of uterus (Chronic) Hx of cervical cancer (Chronic) Hypoxia (Chronic) IBS (irritable bowel syndrome) (Chronic) Insomnia (Chronic) Lupus nephritis (Chronic) Osteoarthritis (Chronic) RLS (restless legs syndrome) (Chronic) Rheumatoid arthritis (Chronic) ILD (interstitial lung disease) (Suspected) Koch's palsy COPD (chronic obstructive pulmonary disease) Depression GERD (gastroesophageal reflux disease) Hx of breast cancer Hypertension Multiple sclerosis Osteoporosis SLE (systemic lupus erythematosus) Surgical History History of appendectomy (Chronic) History of right shoulder replacement (Resolved) History of surgery on right wrist (Resolved) Personal history of bleeding following renal biopsy (Resolved) Pilonidal cyst (Resolved) S/P hip hemiarthroplasty (Resolved) S/P tonsillectomy (Resolved) Bilateral salpingectomy with oophorectomy Breast, Mastectomy Bilateral Colonoscopy - MAC (06/03/17) Extraction of cataract Fracture, Open Treatment (10/01/14) Hysterectomy, Laproscopic Social History/Home Situation: Patient lives with her on the second floor of an apartment building with 13 steps to get to her apartment with rails on the left going up. Patient was independent with all aspects of ADLs prior to admission and was not using any assistive device nor any adaptive equipment at home. Her and her daughter Heather helps with meal preparation and oven builder as well as with laundry. She denies any falls in the past 12 months. Current Functional Limitations: Need for assistance with bed mobility, transfers, and ambulation, limited activity tolerance Equipment Owned/DME: FWW, straight cane although she states she does not use any assistive ambulatory device prior to admission Subjective: Patient was seen having just had her breakfast and was agreeable to a PT evaluation and treatment. She states that she slept well last night and did not wake up until 10:00 this morning. Objective: General Observation: Patient seen sitting on her chair by the side of her bed. She states she spilled her coffee. Telemetry on. 4 L of oxygen on via nasal cannula. Mental Status: Alert and oriented x3 Pain: 0/10 Vital Signs: Oxygen saturation 97% at 4 L/min, RR 20 cpm, HR 79 bpm. ROM: Right Upper Extremity: WFL Left Upper Extremity: WFL Right Lower Extremity: WFL Left Lower Extremity: WFL Strength: Right Upper Extremity: Shoulder flexors 4+/5. Shoulder abductors 4+/5. Elbow flexors 4+/5. Senior Accounting Clerk strong and functional. Left Upper Extremity: Shoulder flexors 4+/5. Shoulder abductors 4+/5. Elbow flexors 4+/5. Senior Accounting Clerk strong and functional. Right Lower Extremity: Hip flexors 4-/5. Hip abductors 4-/5. Knee flexors 4/5. Knee extensors 3+/5. Ankle plantar flexors/dorsiflexors 4/5. Left Lower Extremity: Hip flexors 4-/5. Hip abductors 4-/5. Knee flexors 4/5. Knee extensors 3+/5. Ankle plantar flexors/dorsiflexors 4/5. Sensation: Intact to distal bilateral lower extremities as to pain and pressure. Bed Mobility/Transfers: Rolling min A Supine to sit min A Sit to supine min A Sit to stand min A with FWW Stand to sit min A with FWW Bed to chair min A with FWW Chair to bed min A with FWW Gait: Patient was able to tolerate level surface ambulation using front-wheeled walker for 100 feet with 4 turns at 4 L of oxygen per min with contact-guard assist with shortness of breath observed towards the last 20 feet. No LOB noted. Minimal verbal cueing needed for walker management, activity pacing, and energy conservation. Balance: Static Sitting: Good Dynamic Sitting: Good Static Standing: Fair Dynamic Standing: Fair Special Tests: Mobility Limitations Standardized Measure [employer] AM-PAC 6 clicks Basic Mobility Inpatient Short Form: Raw Score: 12 CMS Score: 69% deficit Informed Consent/Education: Patient instructed in purpose of PT consult and plan of care. Assessment: Patient is a 73 year old female referred to physical therapy services with the diagnosis of COPD exacerbation, acute hypoxic respiratory failure, and steroid-induced hyperglycemia. Patient presents with clinical signs and symptoms consistent with current/admitting diagnoses that has resulted to mobility limitations, gait instability, generalized weakness, and lack of motor control as demonstrated by the following impairment level findings: 1. Decreased strength to B LE major muscle groups 2. Impaired balance 3. Impaired activity tolerance Impairments are contributing to the following functional limitations: 1. Decreased bed mobility skills 2. Increased dependence with transfers 3. Inability to safely ambulate without assistive device and physical assistance 4. Increase completion time for mobility ADL performance 5. Increased fall risk due to limited endurance 6. Inability to negotiate steps alone safely Patient is assessed as a Moderate 56811 complexity based on the following: History: Patient is a 73-year-old female with COPD exacerbation, acute hypoxic respiratory failure, and steroid-induced hyperglycemia with co-morbidities and past medical history as listed above Examination: Underlying impairments and functional deficits as noted above Presentation: Evolving Decision Makin moderate complete Goals: Goals X1 week 1. Supine-Sit independent 2. Sit-Supine independent 3. Sit-Stand independent 4. Stand-Sit independent 5. Bed-Chair independent 6. Chair-Bed independent 7. Gait on level surface ambulation with use of least restrictive device for at least 300 feet without report of pain nor dyspnea 8. Independent with home exercise program 9. Balance good for static and dynamic standing Plan of Care/Treatment Plan: 1-2x/day, 7 days/week x 1 week. Plan of care has been reviewed with the MANAGER ADOBE providing the service under Physical Therapy direction. Initiate Physical Therapy intervention for strengthening, bed mobility, transfers, gait, stairs, balance training, use of assistive device. DISCHARGE RECOMMENDATIONS: Patient may benefit from a short-term detention facility placement in order to regain independent premorbid level with least restrictive device in anticipation of home with . TREATMENT CODE/TIME: 15835 25 minutes, 89209 15 minutes beginning at 11:10 AM. Thank you for this referral. Ann Marie Taylor, PT, DPT, CLT [facility]
--- NOTE | 2018-07-14 12:50 | OT.INIE ---
Occupational Therapy Notes Inpatient Occupational Therapy Evaluation Date: 07/14/18 Referring Doctor:Rochelle Buckner MD OT Orders: Eval and Treat Precautions: Fall, Standard PATIENT PROFILE/ADMITTING DIAGNOSIS: Pt is a 73 year old female was was admitted through the ER on 07/13/18 for COPD exacerbation, tachycardia, acute respiratory distress and hypoxia. Past Medical History: COPD, lupus, MS, HTN, anxiety, depression, GERD, breast cancer, [place] palsy, osteoporosis LLE, (B) salpingectomy with oophorectomy, (B) breast masectomy. Social History/Home Situation: Pt reports that she lives in [place] and has an apartment in [facility] for the weekends as her is still currently working. She reports that at baseline she has difficulty with functional activity tolerance in the kitchen. She states that showering in her walk in shower is also tasking for her and she is tired post bathing routine. Pt is still currently driving. She has difficulty at baseline with any bending activities that she has to do in her ADL routine but states that this does not mean that she cannot do it, it just takes a little longer. Equipment owned/DME: raised toilet seat, after school coordinator, grab bars, sock aid, shower chair SUBJECTIVE: Pt was sitting in chair when OT arrived. She reports that she woke up early this morning and was very tired and just woke up minutes before OT arrived. Pt reports that she is feeling so much better than she was. She reports that she was getting ready to go to a family libertarian prior to admission and it took her over an hour to get ready. Pt reports that by the time she got to the libertarian she was completely out of breath and her daughter advised her to come to the hospital. OBJECTIVE: General Observation: Telemetry, BP, O2 4L nasal cannula Mental Status: A&Ox3 Pain: no c/o pain Vital Signs: 93% O2 with functional movements in the sitting position. ROM: RUE AROM WFL L UE AROM WFL STRENGTH: RUE shoulder flexion 4/5, bicep 5/5, tricep 5/5, county extension agent was weak and symmetrical LUE shoulder flexion 5/5, bicep 5/5, tricep 5/5, county extension agent was weak and symmetrical FUNCTIONAL MOBILITY/ADLS: BATHING Bathing UE (I) washing face and (B) UE with max (A) set up. Bathing LE pt denies. DRESSING NT GROOMING Pt performed teeth brushing prior to OT session. TOILETING On commode at this time. EATING (I) in sitting position BALANCE: Static sitting Normal Dynamic Sitting Normal SPECIAL TESTS: Daily Activity Limitations Standardized Measure [facility] AM -PAC ?6 clicks? Daily Activity Inpatient Short Form: Raw score: 21 Standardized score: 44.27 CMS score: 32.79% INFORMED CONSENT/EDUCATION: Pt instructed in purpose of OT Consult and plan of care. ASSESSMENT: Patient is a 73-year-old female referred to occupational therapy services with diagnosis of COPD acute exacerbation, tachycardia, acute respiratory distress and hypoxia. Patient presents with clinical signs and symptoms consistent with dx, as demonstrated by the following impairment level findings/functional limitations: ADL/IADL productivity leisure impairment, functional mobility impairment,limited functional activity tolerance, dyspena at rest and with functional activities. Pt has all DME needed. OT recommends that she return home when medically cleared per MD. AMPAC score AMPAC score 21, CMS score 32.79% Patient is assessed as a Moderate 20464 complexity based on the following: History: See Above Examination: See Above Presentation: Evolving Decision Making: AMPAC score 21, CMS score 32.79% GOALS Goals x1 week in hospital setting 1. Transfers (I) LRD 2. Dressing sitting in chair pt will be able to perform UE/LE dressing (I) 3. Bathing Pt will be able to perform bathing routine in the shower (I) 4. Toileting (I) on toilet 5. Eating (I) 6. Grooming (I) with standing at sink for brushing teeth PLAN OF CARE/TREATMENT PLAN: 1x/day, 5 days/ week x 1week Initiate Occupational Therapy Services for bathing, dressing, grooming, toileting, eating, transfer training. DISCHARGE RECOMMENDATIONS Home when medically cleared per MD. TREATMENT TIME/MINUTES/CODES 22833, 79520, 40 minutes (10:15) [facility]
--- NOTE | 2018-07-14 13:11 | OTIE_ITS ---
Occupational Therapy Notes Inpatient Occupational Therapy Evaluation Date: 07/14/18 Referring Doctor:Rochelle Buckner MD OT Orders: Eval and Treat Precautions: Fall, Standard PATIENT PROFILE/ADMITTING DIAGNOSIS: Pt is a 73 year old female was was admitted through the ER on 07/13/18 for COPD exacerbation, tachycardia, acute respiratory distress and hypoxia. Past Medical History: COPD, lupus, MS, HTN, anxiety, depression, GERD, breast cancer, [place] palsy, osteoporosis LLE, (B) salpingectomy with oophorectomy, (B) breast masectomy. Social History/Home Situation: Pt reports that she lives in [place] and has an apartment in [facility] for the weekends as her is still currently working. She reports that at baseline she has difficulty with functional activity tolerance in the kitchen. She states that showering in her walk in shower is also tasking for her and she is tired post bathing routine. Pt is still currently driving. She has difficulty at baseline with any bending activities that she has to do in her ADL routine but states that this does not mean that she cannot do it, it just takes a little longer. Equipment owned/DME: raised toilet seat, acetylene gas compressor, grab bars, sock aid, shower chair SUBJECTIVE: Pt was sitting in chair when OT arrived. She reports that she woke up early this morning and was very tired and just woke up minutes before OT arrived. Pt reports that she is feeling so much better than she was. She reports that she was getting ready to go to a family republican prior to admission and it took her over an hour to get ready. Pt reports that by the time she got to the republican she was completely out of breath and her daughter advised her to come to the hospital. OBJECTIVE: General Observation: Telemetry, BP, O2 4L nasal cannula Mental Status: A&Ox3 Pain: no c/o pain Vital Signs: 93% O2 with functional movements in the sitting position. ROM: RUE AROM WFL L UE AROM WFL STRENGTH: RUE shoulder flexion 4/5, bicep 5/5, tricep 5/5, bike mechanic was weak and symmetrical LUE shoulder flexion 5/5, bicep 5/5, tricep 5/5, bike mechanic was weak and symmetrical FUNCTIONAL MOBILITY/ADLS: BATHING Bathing UE (I) washing face and (B) UE with max (A) set up. Bathing LE pt denies. DRESSING NT GROOMING Pt performed teeth brushing prior to OT session. TOILETING On commode at this time. EATING (I) in sitting position BALANCE: Static sitting Normal Dynamic Sitting Normal SPECIAL TESTS: Daily Activity Limitations Standardized Measure [facility] AM -PAC ?6 clicks? Daily Activity Inpatient Short Form: Raw score: 21 Standardized score: 44.27 CMS score: 32.79% INFORMED CONSENT/EDUCATION: Pt instructed in purpose of OT Consult and plan of care. ASSESSMENT: Patient is a 73-year-old female referred to occupational therapy services with diagnosis of COPD acute exacerbation, tachycardia, acute respiratory distress and hypoxia. Patient presents with clinical signs and symptoms consistent with dx, as demonstrated by the following impairment level findings/functional limitations: ADL/IADL productivity leisure impairment, functional mobility impairment,limited functional activity tolerance, dyspena at rest and with functional activities. Pt has all DME needed. OT recommends that she return home when medically cleared per MD. AMPAC score AMPAC score 21, CMS score 32.79% Patient is assessed as a Moderate 11722 complexity based on the following: History: See Above Examination: See Above Presentation: Evolving Decision Making: AMPAC score 21, CMS score 32.79% GOALS Goals x1 week in hospital setting 1. Transfers (I) LRD 2. Dressing sitting in chair pt will be able to perform UE/LE dressing (I) 3. Bathing Pt will be able to perform bathing routine in the shower (I) 4. Toileting (I) on toilet 5. Eating (I) 6. Grooming (I) with standing at sink for brushing teeth PLAN OF CARE/TREATMENT PLAN: 1x/day, 5 days/ week x 1week Initiate Occupational Therapy Services for bathing, dressing, grooming, toileting, eating, transfer training. DISCHARGE RECOMMENDATIONS Home when medically cleared per MD. TREATMENT TIME/MINUTES/CODES 23999, 10607, 40 minutes (10:15) [facility]
--- NOTE | 2018-07-14 13:39 | PHARADMIT ---
Addendum entered by Jorje Rodriguez III 07/16/18 16:29: Pharmacy Note Subjective Patient improving, needs exercise oximetry to determine if she needs O2 at home. Objective VS-OK HR-106, K+3.8 WBC-12.56 H&H, Plts, SCr-OK Wgt-54.3 kg Still no BM Assessment IV ABX to PO Azithromycin & Cefuroxime, & PO steroids Plan [facility] discharge tomorrow Addendum entered by Jorje Rodriguez III 07/15/18 12:39: Pharmacy Note Subjective Patient improved, transferred to [facility]. Treated fo SIRS, blood culture-no growth/24hrs Objective VS-OK HR-61 SaO2-96% on RmAir, Lytes SCr,Plts-OK H&H-10..3/33.3 WBC-13.63, FSBS-174 BG-168 Wgt-54.2 kg No BM yet Assessment IV Steroids, Azithromycin & Rocephin continue Plan Will need short rehab stay per PT. ECHO today, Palliative consult not completed. Original Note: Admission Pharmacy Clinical Review acute COPD exacerbation, acute hypoxic resp failure Code Status Full Code Current Weight 52.3 kg Renally Cleared and Narrow Therapeutic Index Meds Crcl ~44.31 mL/min current meds okay QTc Value / Action Taken QTc 446 BP Control, Fever BP 98/50 afebrile Electrolytes reviewed within normal limits DVT Prophylaxis enoxaparin Opiate Usage / Scheduled Bowel Regimen Ordered no/prn Plt/SCr for Heparin / Enoxaparin plt 272 SCr 0.70 INR for Warfarin n/a H/H stable, WBC/Bands h/h 11.6/36.9 wbc 14.76 Antibiotic appropriateness ceftriaxone and azithromycin Cultures and Sensitivities blood cultures pending Surgical ABX d/c within 24 hr n/a DM control / Insulin Dosing BG 174 Heart Failure (Check EF%) (SHAR's, B-Block, Diuretics) amlodipine, enalapril, IV to PO Switch n/a Home Meds Reviewed -umeclidinium may enhance the anticholinergic effects of dicyclomine -prednisone may enhance the adverse/toxic effects of leflunomide (specifically the risk for hematologic toxicity) -separate admin of prednisone from calcium carbonate/vit D Home Meds Not Ordered cefpodoxime, dicyclomine, formotorol, lansoprazole, prednisone, bactrim, umcelidinium Comments ECHO ordered
--- NOTE | 2018-07-14 14:08 | W.PALLCONSUL ---
Date of service: 07/14/18 History of Present Illness Chief Complaint: end-stage COPD Narrative: Rafaela, known as Louann, was told several years ago that she has end-stage COPD by the doctors at [facility], she reports. She was advised to use oxygen at home in the past. She did a round of respiratory therapy a few years at [facility] that helped her regain function and feel better. She reports that over the previous several months she has been very sedentary. She and her live on [address] [facility] in a 5 story house. She cannot climb more than 5 or 6 stairs without stopping. She confines herself mostly to one floor. Her house is very difficult for her to maneuver within. She came in this admission with hypoxia and a COPD exacerbation. During my visit and exam, she was accompanied initially by her friend and adopted daughter Juana Haddad. Juana Haddad talks to Louann daily. She cleans house for her regularly. Jackelin says she's been worried about Louann for a few months. She sees her declining and becoming weaker. But she thinks she could do more. And Louann says she wants to do more. Louann's came in toward the end of my visit. He stated that he too was worried about Louann's decline. Louann did not appear at all breathless. She was animated in conversation. She was wearing oxygen and satting at 96% on 4L. Clearly, she can start weaning down on oxygen. Consults Consult date: 07/14/18 Requesting physician: Rochelle Buckner Assessment and Plan (1) Goals of care, counseling/discussion: Current visit: Yes Status: Acute Louann briefly changed her code status to FULL when first admitted. We discussed when a code would be called, what would happen during a code, and what she would expect to experience after a code. We discussed how choosing DNR.DNI would not affect other aspects of her care, including her ability to receive medications and attend pulmonary rehab again after discharge. She then asked to go back to DNR/DNI status. She very much wants to live until she sees her first great-granddaughter born. The baby is due next month. I told her I see living well beyond this . I told her I did not think she was yet hospice eligible. She was speaking in full sentences, sometimes several sentences in a row. She was not struggling to breathe most of the time. Once or twice, she had to slow down and take a breath. She was animated and energetic in her speech, using her hands/arms in gestures. I explained that this indicated that she still had enough energy that she could not yet qualify for hospice. We did talk about getting back into pulmonary rehab. This helped her tremendously last time. We talked at length about her house and her difficulty getting around at home. We discussed her buying chair glides to go up and down stairs. We talked about alternatives in housing. (Her wasn't present for this part of the conversation.) She would like to live somewhere she could be more independent and mobile. She knows she needs to move more before she becomes permanently disabled. I told her I would see her at her home in 4-6 weeks to see how she is doing. Unfortunately, her , Chester didn't arrive until the end of my visit so we could not discuss more help in the home/stair glides/possibly moving to a home on one level in detail. She will see her medical registrar Dr Pacheco at [facility] soon after discharge, too. Review of Systems Constitutional Reports daytime sleepiness, Reports fatigue and Reports weakness Eyes Reports requires corrective lenses ENT Reports dry mouth Cardiovascular Reports palpitations, Reports dyspnea and Reports dyspnea on exertion Respiratory Reports cough, Reports dyspnea, Reports dyspnea on exertion and Reports wheezing Gastrointestinal Reports constipation Genitourinary Reports urinary incontinence (with coughing) Musculoskeletal Reports atrophy, Reports muscle weakness and Reports stiffness Integumentary/Breasts Reports dry skin Neurologic Reports weakness Psychiatric Reports anxiety, Reports difficulty concentrating and Reports hopelessness Endocrine Reports fatigue and Reports palpitations Hematologic/Lymphatic Reports easy bruising Allergic/Immunologic Reports wheezing PFSH Medical History Palliative care patient (Chronic) Bronchiectasis (Chronic) Chronic adrenal insufficiency (Chronic) Chronic tachycardia (Chronic) Chronic use of steroids (Chronic) Hx of cancer of uterus (Chronic) Hx of cervical cancer (Chronic) Hypoxia (Chronic) IBS (irritable bowel syndrome) (Chronic) Insomnia (Chronic) Lupus nephritis (Chronic) Osteoarthritis (Chronic) RLS (restless legs syndrome) (Chronic) Rheumatoid arthritis (Chronic) ILD (interstitial lung disease) (Suspected) Koch's palsy COPD (chronic obstructive pulmonary disease) Depression GERD (gastroesophageal reflux disease) Hx of breast cancer Hypertension Multiple sclerosis Osteoporosis SLE (systemic lupus erythematosus) Surgical History History of appendectomy (Chronic) History of right shoulder replacement (Resolved) History of surgery on right wrist (Resolved) Personal history of bleeding following renal biopsy (Resolved) Pilonidal cyst (Resolved) S/P hip hemiarthroplasty (Resolved) S/P tonsillectomy (Resolved) Bilateral salpingectomy with oophorectomy Breast, Mastectomy Bilateral Colonoscopy - MAC (06/03/17) Extraction of cataract Fracture, Open Treatment (10/01/14) Hysterectomy, Laproscopic Family History Father Heart disease Stroke Hypertension Parkinson disease Mother Hypertension COPD (chronic obstructive pulmonary disease) Brother No problems noted. Daughter Ulcerative colitis Rheumatoid arthritis Daughter No problems noted. Social History Smoking/Tobacco Use Status: Former Tobacco Use Pack-years: 30 Tobacco: How many years used: 30 Second Hand Exposure: Yes Counseling given: counseling >3 minutes Alcohol Intake: never Drug use: Rarely Substance use type: marijuana Caregiver/Support person: Yes Household members: spouse Housing: house Number of Children: 2 Communication Needs: None Education Level: high school current occupation: retired from [employer] Pets and animals: No What is your relationship status?: How often do you talk on the phone with friends or family?: three or more times per week How often do you get together with friends or relatives?: twice per week Panel score (0-1 are the most socially isolated patients): 2 What type of physical activity do you participate in: none Agree to transfusion: Yes Do you feel safe at home: Yes Do you feel safe in your relationship?: Yes Exam Const General: cooperative, no acute distress, anxious and ill appearing Nutritional Appearance: average body habitus Orientation: alert, awake and oriented x3 HENMT Head: normocephalic and atraumatic Ears: hearing grossly normal bilaterally General nose exam: external nose normal and other (wearing nasal cannula) Face and sinus: dry mucous membranes Eyes Conjunctivae: conjunctivae normal Sclera: sclerae normal Neck Neck: no lymphadenopathy and no JVD Resp Effort & Inspection: normal respiratory effort, able to speak in complete sentences and uses accessory muscles (intermittently uses intercostals) Auscultation: diminished lung sounds Cardio Jugular venous pressure: no JVD Rate: tachycardic Rhythm: regular rhythm Heart Sounds: S1 normal and S2 normal GI Palpation: soft Auscultation: normal bowel sounds Skin General skin exam: dry skin and pallor Rashes: no rashes Hair: normal Nails: clubbing Neuro General: alert, awake and oriented x3 Cognition: normal cognition Speech: speech normal Extrem General: no pedal edema, clubbing and muscle atrophy Psych Appearance: grossly normal Mental Status: mental status grossly normal Speech and Movement: speech and movement normal Mood: anxious mood Affect: animated Attitude: cooperative Thought Process: normal Thought Content: normal Insight: insight good Judgment: judgment good Results Last Vital Signs Temp 97.3 F L 07/14/18 10:05 Pulse 99 H 07/14/18 12:22 Resp 16 07/14/18 12:22 BP 98/50 L 07/14/18 08:00 Pulse Ox 97 07/14/18 11:53 Labs : 07/16/18 06:28 07/16/18 06:28 Laboratory Results - last 24 hr 07/13/18 07/13/18 07/14/18 14:50 14:50 06:15 WBC 21.57 H RBC 5.22 H Hgb 13.8 Hct 43.6 MCV 83.5 MCH 26.4 L MCHC 31.7 L RDW 16.0 H Plt Count 387 MPV 10.0 Immature Gran % 0.0 Neutrophils % 90.0 Lymphocytes % 4.0 Monocytes % 6.0 Eosinophils % 0.0 Basophils % 0.0 Absolute Neutrophils 19.41 H Absolute Lymphocytes 0.86 L Absolute Monocytes 1.29 H Absolute Eosinophils 0.00 Absolute Basophils 0.00 Sodium 140 Potassium 3.4 L Chloride 101 Carbon Dioxide 24.1 Anion Gap 14.9 H BUN 17 Creatinine 0.67 Estimated GFR/1.73 m2 >= 60.00 Glucose 212 H Hemoglobin A1c 6.1 Calcium 9.1 Magnesium 1.8 Total Bilirubin 0.5 AST 13 L ALT 20 Alkaline Phosphatase 89 Troponin I < 0.02 NT-Pro-B Natriuret Pep 146 Total Protein 7.7 Albumin 3.5 TSH Free T4 07/14/18 07/14/1807/14/19 06:15 06:15 06:15 WBC 14.76 H D RBC 4.36 Hgb 11.6 L D Hct 36.9 MCV 84.6 MCH 26.6 L MCHC 31.4 L RDW 16.0 H Plt Count 272 D MPV 10.2 Immature Gran % 0.5 Neutrophils % 94.4 Lymphocytes % 3.7 Monocytes % 1.3 Eosinophils % 0.0 Basophils % 0.1 Absolute Neutrophils 13.93 H Absolute Lymphocytes 0.55 L Absolute Monocytes 0.19 Absolute Eosinophils 0.00 Absolute Basophils 0.01 Sodium 141 Potassium 4.4 D Chloride 107 Carbon Dioxide 22.8 Anion Gap 11.2 H BUN 18 Creatinine 0.70 Estimated GFR/1.73 m2 >= 60.00 Glucose 174 H Hemoglobin A1c Calcium 8.0 L Magnesium 1.9 Total Bilirubin AST ALT Alkaline Phosphatase Troponin I NT-Pro-B Natriuret Pep Total Protein Albumin TSH 0.21 L Free T4 1.01
--- NOTE | 2018-07-14 14:36 | CHAPLAIN ---
Rafaela was sitting up having a late lunch when I visited. She said she'd had a roomful of family visiting earlier in the day. I had helped Rafaela and her complete advance directives a few years ago, as out patients. Rafaela said she had a good conversation (Palliative Care consult) with Dr. Mock this morning, and she was rethinking her advance directive. She doesn't remember exactly how she filled out her AD, but she would like to take a look at it and make possible changes. I let her Retail Training Manager, Juana, know this. Rafaela said that she learned through her conversation with Dr. Mock, that a only a small percentage of patients, with significant chronic illnesses survive CPR and it is unlike that any return to baseline. Rafaela said she hopes to be alive to welcome a new greatgrand daugther in July, but now realizes that she may not be herself if she has some aggressive interventions or treatments. Retail Training Manager Juana said she would address Rafaela's request to update her AD.
--- NOTE | 2018-07-14 14:42 | PT.INTREAT ---
Date of service: 07/14/18 Time of Service: 14:43 PT Notes Inpatient Physical Therapy Treatment Note [facility] Date: 07/14/18 PRECAUTIONS: Fall SUBJECTIVE: Rafaela reports that she is feeling pretty good today. She is agreeable to participating in PT. OBJECTIVE: PAIN: No complaints of pain BED MOBILITY/TRANSFERS Sit-stand: SBA Stand-sit: SBA GAIT Assistive Device: No AD Weight bearing: Full Assist: SBA Distance: 200' Deviation: Standing rest x1 VITALS: SaO2: 95-96% on 4L O2 via NC with gait ASSESSMENT: Patient tolerated session well without complaint. Patient was able to tolerate a progression in gait distance without assistive device support. Patient would benefit from continued gait and transfer training as well as strengthening for improved activity tolerance and cardiovascular endurance. PLAN: Continue with PT's POC TREATMENT CODE/TIME: 20 minutes; 72710
[2018-07-14] MEDS: cefTRIAXone 1 GM/50 ML BAG IVPB (14:54)
[2018-07-14] MEDS: AZITHROMYCIN 500 MG in Normal Saline 250 ML 250 MG IVPB (16:24)
[2018-07-14] MEDS: Insulin Aspart 300 UNITS/3 ML PEN SC ×2 (17:08→23:44)
[2018-07-14] MEDS: Enoxaparin 40 MG/0.4 ML SYR SC (18:27)
[2018-07-14] MEDS: Melatonin 3 MG TAB 9 MG PO (22:30)
[2018-07-14] MEDS: clonazePAM 1 MG TAB PO (23:18)
[2018-07-14] MEDS: Enalapril 5 MG TAB 10 MG PO (23:18)
[2018-07-15] VITALS (19 sets, daily range): BP systolic 127–169; BP diastolic 67–95; PULSE 61–115; RESP 5–39; TEMP 36.1–37.1; O2SAT 95–98
[2018-07-15] MEDS: Normal Saline 1,000 ML 100 ML IV (03:06)
[2018-07-15] MEDS: methylPREDNISolone SUCC 125 MG VIAL 80 MG IVP (05:55)
[2018-07-15 06:45] LABS: Abs Immature Grans 0.09 k/cumm (0.0-0.09); Absolute Basophil Count 0.01 k/cumm (0.0-0.2); Absolute Lymphocyte Count 0.44 k/cumm (1.2-3.4); Basophils % 0.1; HCT 33.3 % (36.0-46.0); HGB 10.3 g/dL (12.0-15.5); Immature Grans % 0.7; Lymphocytes % 3.2; Mean Corp. HGB Concentration 30.9 g/dL (32.0-36.0); Mean Corpuscular Hemoglobin 26.5 pg (27.0-33.0); Mean Corpuscular Volume 85.8 fL (80-95); Mean Platelet Volume 10.4 fL (8.0-11.0); Monocytes % 4.3; Neutrophils % 91.7; Platelet Count 249 x1000/uL (130-400); RBC 3.88 m/cumm (4.00-5.20); RBC Distribution Width 16.2 % (11.7-14.6); White Blood Cell Count 13.63 k/cumm (4.4-10.8)
[2018-07-15 06:52] LABS: Absolute Monocyte Count 0.59 k/cumm (0.11-0.7)
[2018-07-15 07:15] LABS: BUN 17 mg/dL (7-18); CREATININE 0.59 mg/dL (0.55-1.02); Chloride 111 mmol/L (98-107); Glucose 168 mg/dL (70-100); Magnesium 2.1 mg/dL (1.8-2.4); Potassium 4.1 mmol/L (3.5-5.1); Sodium 145 mmol/L (136-145); TSH (W/Ref FT4) 0.11 uIU/mL (0.358-3.74)
--- NOTE | 2018-07-15 07:47 | PDOC.CMPRO ---
- If Service Date Differs Date of service: 07/15/18 Time of Service: 14:21 Care Management Progress Note S/O:Rafaela is no longer ICU level of care and has been moved to the medical surgical unit. She states that she is feeling much better. She attributes this to a good night's sleep and high dose steroids. Rafaela was OOB in the chair and was smiling and engaged while conversing with CM. She was without any supplemental oxygen and felt her breathing was comfortabe, although she did admit to being a little SOB after ambulating from the ICU to her new room. We reviewed her Advanced Directives and she would like to make some minor changes. There are some discrepancies between the existing directive and both what she verbalizes and what is listed in her electronic medical record. Lorean Davis APRN advised of the discrepancy and she will address with Rafaela. A: Rafaela is a 73 y/o female admitted with acute exacerbation of COPD and acute hypoxic respiratory failure. P:Rafaela is receiving IV antibiotics, steroids and pulmonary support. She remains on telemetry. Plan is to return home with . She is requesting to attend Pulmonary Rehab after discharge. CM to continue to provide support to patient, family, care team with ongoing discharge planning.
[2018-07-15] MEDS: Insulin Aspart 300 UNITS/3 ML PEN SC ×3 (09:54→17:15)
[2018-07-15] MEDS: guaiFENesin 600 MG TABCR PO ×2 (09:54→19:22)
[2018-07-15] MEDS: Enalapril 5 MG TAB 20 MG PO (09:55)
[2018-07-15] MEDS: Benzonatate 100 MG CAP PO ×3 (09:55→19:22)
[2018-07-15] MEDS: Venlafaxine 37.5 MG CAPCR 75 MG PO (09:56)
[2018-07-15] MEDS: Pantoprazole 40 MG TABCR PO (09:57)
[2018-07-15] MEDS: amLODIPine 10 MG TAB PO (09:58)
[2018-07-15] MEDS: Calcium 600mg/Vit D 200U TAB 1 TAB PO (09:58)
[2018-07-15 10:28] LABS: FREE T4 0.91 ng/dL (0.76-1.46)
--- NOTE | 2018-07-15 11:48 | OT.INTREAT ---
Date of service: 07/15/18 Time of Service: 10:45 Occupational Therapy Notes Occupational Therapy Inpatient Treatment Note Date: 07/15/18 PRECAUTIONS: Standard SUBJECTIVE: Pt was happy to be on the Med Surg floor. She reports that she feels good today and wants to get stronger to be able to go home. OBJECTIVE: PAIN:no c/o pain FUNCTIONAL MOBILITY Sit-stand: S Stand-sit: S Bed-Chair: S Chair-bed: S BATHING: Sitting in chair with max (A) set up Upper Body: (I) face, abdomen, max (A) back Lower Body: (I) lower legs and thighs DRESSING: Sitting in chair with min vc Upper Extremity: min (A) with donning and doffing [facility] gown Lower Extremity: (I) donning and doffing (B) socks TOILETING: Device: toilet Assist: (I) ASSESSMENT/PLAN: Pt is demonstrating increased functional activity tolerance and decreased labored breathing. Pt reported that she felt short of breath but otherwise was demonstrating more functional (I). TREATMENT CODES/TIME: [id number], 25 minutes (10:45) Sabine Barnard OTR/L [facility]
--- NOTE | 2018-07-15 11:58 | OTTR_ITS ---
Date of service: 07/15/18 Time of Service: 10:45 Occupational Therapy Notes Occupational Therapy Inpatient Treatment Note Date: 07/15/18 PRECAUTIONS: Standard SUBJECTIVE: Pt was happy to be on the Med Surg floor. She reports that she feels good today and wants to get stronger to be able to go home. OBJECTIVE: PAIN:no c/o pain FUNCTIONAL MOBILITY Sit-stand: S Stand-sit: S Bed-Chair: S Chair-bed: S BATHING: Sitting in chair with max (A) set up Upper Body: (I) face, abdomen, max (A) back Lower Body: (I) lower legs and thighs DRESSING: Sitting in chair with min vc Upper Extremity: min (A) with donning and doffing [facility] gown Lower Extremity: (I) donning and doffing (B) socks TOILETING: Device: toilet Assist: (I) ASSESSMENT/PLAN: Pt is demonstrating increased functional activity tolerance and decreased labored breathing. Pt reported that she felt short of breath but otherwise was demonstrating more functional (I). TREATMENT CODES/TIME: [id number], 25 minutes (10:45) Sabine Barnard OTR/L [facility]
[2018-07-15] MEDS: cefTRIAXone 1 GM/50 ML BAG IVPB (13:52)
[2018-07-15] MEDS: Normal Saline Flush 10 ML SYR IVP ×2 (14:06→18:20)
[2018-07-15] MEDS: Albuterol/Ipratropium 3 ML UPD VIAL UPD (14:20)
--- NOTE | 2018-07-15 15:22 | PT.INTREAT ---
Date of service: 07/15/18 Time of Service: 15:22 PT Notes Inpatient Physical Therapy Treatment Note [facility] Date: 07/15/18 PRECAUTIONS: Fall SUBJECTIVE: Louann states that she is feeling much better today. OBJECTIVE: PAIN: No c/o pain BED MOBILITY/TRANSFERS Supine-sit: I Sit-supine: I Sit-stand: I Stand-sit: I Bed-Chair: I GAIT Assistive Device: No AD Weight bearing: Full Assist: S Distance: Session 1: 250'; Session 2: 300' Deviation: Sessin 1: Seated rest x1, SOB, standing rest x1; Session 2: SOB VITALS: Session 1 SaO2: 93-98% on RA with gait and stair training; Session 2 SaO2: 92-96% on RA with gait training THEREX: Patient completed a LE strengthening program, in a seated position, as per flow sheet. STAIRS: Up/down 6x4 and 4x6 using 1 rail and a step-over pattern with supervision TOILETING: Patient toileted independently. ASSESSMENT: Patient tolerated session well with some c/o SOB with activity. She was able to tolerate a progression in gait distance without assistive device support. She has also been cleared to ambulate and transfer independently within her room. She would benefit from continued participation in general conditioning for improved cardiovascular endurance and activity tolerance. PLAN: Continue with PT's POC TREATMENT CODE/TIME: Session 1: 40 minutes; 36339 x2, 62336 Session 2: 15 minutes; 64712
--- NOTE | 2018-07-15 15:57 | W.PM.PROGNOT ---
Date of Service Date of service: 07/15/18 Time of Service: 15:57 Assessment and Plan (1) COPD with acute exacerbation: Current visit: Yes Status: Acute Improving. No longer requiring oxgyen. Moved out to med/surg floor today, remains on telemetry. Continue azithromycin, rocephin, solumedrol, pulmicort, nebs. Begin to taper steroids. Change nebulizer treatments to PRN. (2) SIRS (systemic inflammatory response syndrome): Current visit: Yes Status: Acute Improved. Blood cultures have yielded no growth at 24 hours. Continue azithromycin, rocephin (Day #3) as above. Discontinue IV fluids. (3) Chronic adrenal insufficiency: Current visit: Yes Status: Acute Continue steroids. Begin to taper. (4) Steroid-induced hyperglycemia: Current visit: Yes Status: Acute A1C is 6.1, prediabetic - likely steroid related. Consider metformin as outpatient as well as nutrition counseling. (5) GERD (gastroesophageal reflux disease): Current visit: Yes Status: Chronic Continue PPI. (6) Chronic tachycardia: Current visit: Yes Status: Acute Improved. Remains mildly tachycardic. Echo ordered. Continue on telemetry until echo results obtained- ? severe pulmonary hypertension/RV failure. (7) Anxiety: Current visit: No Status: Chronic Continue venlafaxine and clonopin. (8) Multiple sclerosis: Current visit: No Status: Chronic Continue PT/OT. (9) Systemic lupus erythematosus: Current visit: No Status: Chronic Continue systemic steroids, begin to taper. 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 (10) DVT prophylaxis: Current visit: Yes Status: Acute Subcutaneous Lovenox + SCD's/TEDS. (11) Discharge planning issues: Current visit: Yes Status: Acute She is a DNR. Would take intubation for short period. She went through advanced directives today with care management. This case was discussed with Dr. Buckner who is in agreement. Subjective Interval history since last seen: Rafaela moved out of the ICU today to the Med/surg floor. She reports feeling better overall. She does not feel short of breath, but does have to recover after ambulating. She has an occasional nonproductive cough, she denies wheezing. She reports feeling tired, although she slept well last night. She has not had a bowel movement for 2 days, she normally has diarrhea and takes imodium frequently. She denies dizziness, chest pain/pressure, palpitations, nausea, vomiting, diarrhea, she is eating and drinking and tolerating her diet. Exam Narrative Exam Narrative: General: Very pleasant elderly female, sitting up in the chair, appears comfortable, in NAD. She is speaking in full sentences without shortness of breath. HEENT: Atraumatic, normocephalic; pupils equal and round, EOMI, MMM, Cardiovascular: regular rate and rhythm, tachycardic, no murmur appreciated. Lungs: respirations even and unlabored. Expiratory rhonchi noted bilaterally. Gastrointestinal: normoactive bowel sounds, abdomen is soft, nontender, nondistended Extremities: BLEs with trace to 1+ pitting edema bilaterally, pedal pulses palpable Objective Objective Clinical Data: Abnormal lab results 07/15/18 07/15/18 Range/Units 06:20 06:20 WBC 13.63 H (4.4-10.8) k/cumm RBC 3.88 L (4.00-5.20) m/cumm Hgb 10.3 L (12.0-15.5) g/dL Hct 33.3 L (36.0-46.0) % MCH 26.5 L (27.0-33.0) pg MCHC 30.9 L (32.0-36.0) g/dL RDW 16.2 H (11.7-14.6) % Absolute Neutrophils 12.50 H (1.2-6.7) k/cumm Absolute Lymphocytes 0.44 L (1.2-3.4) k/cumm Chloride 111 H (98-107) mmol/L Glucose 168 H (70-100) mg/dL Calcium 8.0 L (8.5-10.1) mg/dL TSH 0.11 L (0.358-3.74) uIU/mL Vital Signs Temperature 36.1 C L 07/15/18 10:47 Temperature Source Tympanic 07/15/18 10:47 Pulse 92 H 07/15/18 14:20 Pulse Rhythm Regular 07/15/18 11:57 Pulse 115 H 07/15/18 10:01 Respiratory Rate 15 07/15/18 14:20 Respiratory Effort 07/15/18 11:57 Respiratory Depth Normal 07/15/18 11:57 Respiratory Pattern Normal 07/15/18 11:57 Blood Pressure 164/77 H 07/15/18 10:47 Blood Pressure Mean 104 07/15/18 10:00 Blood Pressure Position Supine 07/14/18 03:27 Pulse Oximetry 95 07/15/18 14:20 Oxygen Delivery Method Room Air 07/15/18 14:20 Oxygen Flow Rate 0 07/15/18 14:20 Fraction of Inspired Oxygen (FIO2) 45 07/13/18 14:58 Pain Level 0 07/15/18 10:47 Intake & Output 07/14/18 07/15/18 07/15/18 23:59 11:59 23:59 Intake Total 1700 / 2804.667 1450 / 2740 1290 / 2740 Output Total 325 / 1610 400 / 700 300 / 700 Balance 1375 / 8561.425 3610 / 2040 990 / 2040 Weight 54.2 kg Intake: IV 1100 / 8490.762 7642 / 2050 1050 / 2050 Oral 600 / 818 450 / 690 240 / 690 Output: Urine 325 / 1610 400 / 700 300 / 700 Other: Urine Color Straw Light Cammy Pale Yellow Straw Urine Appearance Clear Clear Clear Urine Odor Normal Normal Voiding Methods Bedside Commode Bedside Commode Toilet Laboratory Results WBC 13.63 k/cumm (4.4-10.8) H 07/15/18 06:20 RBC 3.88 m/cumm (4.00-5.20) L 07/15/18 06:20 Hgb 10.3 g/dL (12.0-15.5) L 07/15/18 06:20 Hct 33.3 % (36.0-46.0) L 07/15/18 06:20 MCV 85.8 fL (80-95) 07/15/18 06:20 MCH 26.5 pg (27.0-33.0) L 07/15/18 06:20 MCHC 30.9 g/dL (32.0-36.0) L 07/15/18 06:20 RDW 16.2 % (11.7-14.6) H 07/15/18 06:20 Plt Count 249 x1000/uL (130-400) 07/15/18 06:20 MPV 10.4 fL (8.0-11.0) 07/15/18 06:20 Immature Gran % 0.7 07/15/18 06:20 Neutrophils % 91.7 07/15/18 06:20 Lymphocytes % 3.2 07/15/18 06:20 Monocytes % 4.3 07/15/18 06:20 Eosinophils % 0.0 07/15/18 06:20 Basophils % 0.1 07/15/18 06:20 Absolute Neutrophils 12.50 k/cumm (1.2-6.7) H 07/15/18 06:20 Absolute Lymphocytes 0.44 k/cumm (1.2-3.4) L 07/15/18 06:20 Absolute Monocytes 0.59 k/cumm (0.11-0.7) 07/15/18 06:20 Absolute Eosinophils 0.00 k/cumm (0.0-0.7) 07/15/18 06:20 Absolute Basophils 0.01 k/cumm (0.0-0.2) 07/15/18 06:20 Sodium 145 mmol/L (136-145) 07/15/18 06:20 Potassium 4.1 mmol/L (3.5-5.1) 07/15/18 06:20 Chloride 111 mmol/L (98-107) H 07/15/18 06:20 Carbon Dioxide 24.0 mmol/L (21.0-32.0) 07/15/18 06:20 Anion Gap 10.0 mmol/L (3-11) 07/15/18 06:20 BUN 17 mg/dL (7-18) 07/15/18 06:20 Creatinine 0.59 mg/dL (0.55-1.02) 07/15/18 06:20 Estimated GFR/1.73 m2 >= 60.00 (mL/min/1.73m2) 07/15/18 06:20 Glucose 168 mg/dL (70-100) H 07/15/18 06:20 Hemoglobin A1c 6.1 % (4.5-6.2) 07/14/18 06:15 Calcium 8.0 mg/dL (8.5-10.1) L 07/15/18 06:20 Magnesium 2.1 mg/dL (1.8-2.4) 07/15/18 06:20 Total Bilirubin 0.5 mg/dL (0.2-1.0) 07/13/18 14:50 AST 13 U/L (15-37) L 07/13/18 14:50 ALT 20 U/L (12-78) 07/13/18 14:50 Alkaline Phosphatase 89 U/L (46-116) 07/13/18 14:50 Troponin I < 0.02 ng/mL (0.00-0.06) 07/13/18 14:50 NT-Pro-B Natriuret Pep 146 pg/mL (-299) 07/13/18 14:50 Total Protein 7.7 g/dL (6.4-8.2) 07/13/18 14:50 Albumin 3.5 g/dL (3.4-5.0) 07/13/18 14:50 TSH 0.11 uIU/mL (0.358-3.74) L 07/15/18 06:20 Free T4 0.91 ng/dL (0.76-1.46) 07/15/18 06:20
[2018-07-15] MEDS: AZITHROMYCIN 500 MG in Normal Saline 250 ML 250 MG IVPB (16:03)
[2018-07-15] MEDS: methylPREDNISolone SUCC 125 MG VIAL 60 MG IVP (18:18)
[2018-07-15] MEDS: Enoxaparin 40 MG/0.4 ML SYR SC (18:18)
--- NOTE | 2018-07-15 18:30 | NUR.NOTE ---
Nursing Note: patient s urine appear to be pink tinged, information passed on to the CCC awaiting orders. She also appear to be sounding congested again, she was offered a duoneb tx, she stated she wanted to wait until bedtime, she was en couraged to call her nurse when she was ready
[2018-07-15] MEDS: clonazePAM 1 MG TAB PO (19:22)
[2018-07-15] MEDS: Budesonide 0.5 MG/2 ML UPD VIAL UPD (19:22)
--- NOTE | 2018-07-15 19:43 | NUR.NOTE ---
Nursing Note: Pt. concerned that urine is slightly pink tinged and would like staff to take it for testing immediately. I have relayed the patients concern to the CC and will await further instruction.
[2018-07-15 20:26] LABS: Bilirubin Negative (Negative); Blood Negative (Negative); Clarity Clear; Glucose 100 mg/dL (Negative); Ketones Negative (Negative); Leukocyte Esterase Negative (Negative); Nitrite Negative (Negative); Urobilinogen 0.2 EU/dL (Up TO 0.2); pH 6.5 (5-8)
[2018-07-15] MEDS: Melatonin 3 MG TAB 9 MG PO (21:40)
[2018-07-15] MEDS: Enalapril 5 MG TAB 10 MG PO (21:41)
[2018-07-16] VITALS (10 sets, daily range): BP systolic 133–166; BP diastolic 79–89; PULSE 82–143; RESP 18–19; TEMP 36.1–37.1; O2SAT 96–97
[2018-07-16] MEDS: methylPREDNISolone SUCC 125 MG VIAL 60 MG IVP (05:28)
[2018-07-16 07:04] LABS: Abs Immature Grans 0.13 k/cumm (0.0-0.09); Absolute Basophil Count 0.01 k/cumm (0.0-0.2); Absolute Monocyte Count 0.75 k/cumm (0.11-0.7); Basophils % 0.1; HCT 35.7 % (36.0-46.0); HGB 11.1 g/dL (12.0-15.5); Lymphocytes % 3.7; Mean Corp. HGB Concentration 31.1 g/dL (32.0-36.0); Mean Corpuscular Hemoglobin 26.5 pg (27.0-33.0); Mean Corpuscular Volume 85.2 fL (80-95); Mean Platelet Volume 10.2 fL (8.0-11.0); Neutrophils % 89.2; Platelet Count 281 x1000/uL (130-400); RBC 4.19 m/cumm (4.00-5.20); RBC Distribution Width 16.2 % (11.7-14.6); White Blood Cell Count 12.56 k/cumm (4.4-10.8)
[2018-07-16 07:07] LABS: Absolute Lymphocyte Count 0.46 k/cumm (1.2-3.4)
[2018-07-16] MEDS: Budesonide 0.5 MG/2 ML UPD VIAL UPD ×2 (07:30→19:57)
[2018-07-16] MEDS: Albuterol/Ipratropium 3 ML UPD VIAL UPD ×2 (07:31→13:58)
[2018-07-16 07:36] LABS: Anion Gap 8.2 mmol/L (3-11); BUN 14 mg/dL (7-18); CO2 27.8 mmol/L (21.0-32.0); CREATININE 0.58 mg/dL (0.55-1.02); Calcium 8.1 mg/dL (8.5-10.1); Chloride 109 mmol/L (98-107); Glucose 141 mg/dL (70-100); Potassium 3.8 mmol/L (3.5-5.1); Sodium 145 mmol/L (136-145)
--- NOTE | 2018-07-16 08:01 | PDOC.CMPRO ---
- If Service Date Differs Date of service: 07/16/18 Time of Service: 08:01 Care Management Progress Note S/O:Rafaela was seen sitting up in the chair. She was smiling and engaged in our conversation and expressed hopes of being discharged today or tomorrow. She would like to have home oxygen available. An ambulatory oxygen saturation study has been ordered for today. A: Rafaela is a 73 y/o female admitted with acute exacerbation of COPD and acute hypoxic respiratory failure. P:Rafaela is receiving IV antibiotics, steroids and pulmonary support. She remains on telemetry. Plan is to return home with . She is requesting to attend Pulmonary Rehab after discharge. CM to continue to provide support to patient, family, care team with ongoing discharge planning. cc:
[2018-07-16] MEDS: guaiFENesin 600 MG TABCR PO ×2 (08:19→19:57)
[2018-07-16] MEDS: Calcium 600mg/Vit D 200U TAB 1 TAB PO (08:19)
[2018-07-16] MEDS: Enalapril 5 MG TAB 20 MG PO (08:20)
[2018-07-16] MEDS: Venlafaxine 37.5 MG CAPCR 75 MG PO (08:21)
[2018-07-16] MEDS: amLODIPine 10 MG TAB PO (08:21)
[2018-07-16] MEDS: Pantoprazole 40 MG TABCR PO (08:22)
[2018-07-16] MEDS: Benzonatate 100 MG CAP PO ×3 (08:22→19:57)
--- NOTE | 2018-07-16 08:59 | MERGE_ITS ---
*[facility]* *[facility]* [address] [place] [address] Date of study: 07/16/2018 Transthoracic Echocardiography M-mode, complete 2D, complete spectral Doppler, and color Doppler *STUDY CONCLUSIONS* Summary: 1. Left ventricle: The cavity size was normal. There was mild focal basal hypertrophy of the septum. Systolic function was hyperdynamic. The estimated ejection fraction was 65-70%. There was dynamic obstruction during Valsalvain the outflow tract, with a peak gradient of 22mm Hg. Wall motion was normal; there were no regional wall motion abnormalities. 2. Left atrium: The atrium was mildly dilated. 3. Right ventricle: The cavity size was normal. Wall thickness was normal. Systolic function was normal. 4. Pulmonary arteries: Pulmonary systolic pressure was increased, in the range of 40mm Hg to 45mm Hg. *PATIENT PRESENTATION* Height: 152.4cm ((60in) ) S/D Pressure: 163 / 89 Weight: 51.7kg ((113.8lb) ) BSA: 1.49m^2 Test start time: 09:00 AM. Test stop time: 10:00 AM. PERFORMING Unknown CONSULTING Katina Lopez PERFORMING [facility] RT Alphonso (R)(CT), [facility] ORDERING Rochelle Buckner REFERRING Rochelle Buckner *PROCEDURE DATA* Procedure information: The patient was identified by two identifiers. This study was interpreted by [facility]. Pertinent images and digital data are archived for permanent storage and are available for subsequent review. Comparison was made to the study of 2007. Study status: Routine. Transthoracic echocardiography. M-mode, complete 2D, complete spectral Doppler, and color Doppler. A Transthoracic Echocardiogram was performed. Scanning was performed from the parasternal, apical, subcostal, and suprasternal notch acoustic windows. Images were obtained using an [id number] cardiac ultrasound machine. Image quality was adequate. Study completion: The patient tolerated the procedure well. History: PMH: Chronic tachycardia. ? Cardiomyopathy. *CARDIAC ANATOMY* Left ventricle: The cavity size was normal. There was mild focal basal hypertrophy of the septum. Systolic function was hyperdynamic. The estimated ejection fraction was 65-70%. There was dynamic obstruction during Valsalvain the outflow tract, with a peak gradient of 22mm Hg. Wall motion was normal; there were no regional wall motion abnormalities. Diastolic parameters were not diagnostic. Aortic valve: Trileaflet; normal thickness leaflets. Mobility was not restricted. Doppler: Transvalvular velocity was within the normal range. There was no stenosis. There was no significant regurgitation. VTI ratio of LVOT to aortic valve: 0.63. Valve area (VTI): 1.9cm^2. Indexed valve area (VTI): 1.3cm^2/m^2. Peak velocity ratio of LVOT to aortic valve: 0.63. Valve area (Vmax): 1.9cm^2. Indexed valve area (Vmax): 1.3cm^2/m^2. Mean velocity ratio of LVOT to aortic valve: 0.61. Valve area (Vmean): 1.8cm^2. Indexed valve area (Vmean): 1.2cm^2/m^2. Mean gradient (S): 6.3mm Hg. Peak gradient (S): 10.7mm Hg. Aorta: Aortic root: The aortic root was normal in size. Ascending aorta: The ascending aorta was normal in size. Mitral valve: Structurally normal valve. Mobility was not restricted. Doppler: Transvalvular velocity was within the normal range. There was no evidence for stenosis. There was trivial regurgitation. Valve area by pressure half-time: 4.9cm^2. Indexed valve area by pressure half-time: 3.3cm^2/m^2. Peak gradient (D): 2.8mm Hg. Left atrium: The atrium was mildly dilated. Right ventricle: The cavity size was normal. Wall thickness was normal. Systolic function was normal. Pulmonic valve: Structurally normal valve. Doppler: Transvalvular velocity was within the normal range. There was no evidence for stenosis. There was no significant regurgitation. Peak gradient (S): 4.4mm Hg. Tricuspid valve: Structurally normal valve. Doppler: Transvalvular velocity was within the normal range. There was no evidence for stenosis. There was no significant regurgitation. Pulmonary artery: Pulmonary systolic pressure was increased, in the range of 40mm Hg to 45mm Hg. Right atrium: The atrium was normal in size. Pericardium: There was no pericardial effusion. Systemic veins: Inferior vena cava: Well visualized. The vessel was patent and small, appearing collapsed. The respirophasic diameter changes were in the normal range (greater than or equal to 50%). Baseline ECG: Tachycardia. Measurements Left ventricle Value Reference LV ID, ED, PLAX 3.9 cm 3.5 - 6.0 LV ID, ES, PLAX 2.4 cm 2.1 - 4.0 LV PW thickness, ED, PLAX 0.8 cm LV end-diastolic volume, 1-p A2C 52 ml LV ejection fraction, 1-p A2C 72 % LV end-diastolic volume, 1-p A4C 38 ml LV ejection fraction, 1-p A4C 60 % LV e', lateral 0.113 m/sec LV E/e', lateral 7 LV e', medial 0.08 m/sec LV E/e', medial 10 LV e', average 0.097 m/sec LV E/e', average 9 Ventricular septum Value Reference IVS thickness, ED, PLAX 0.8 cm LVOT Value Reference LVOT ID, A-P 2.0 cm LVOT area 3 cm^2 LVOT peak velocity, S 1.03 m/sec LVOT mean velocity, S 0.74 m/sec LVOT VTI, S 21.3 cm LVOT peak gradient, S 4.2 mm Hg LVOT mean gradient, S 2.4 mm Hg Stroke volume (SV), LVOT DP 64 ml Stroke index (SV/bsa), LVOT DP 43 ml/m^2 Aortic valve Value Reference Aortic valve peak velocity, S 1.6 m/sec Aortic valve mean velocity, S 1.2 m/sec Aortic valve VTI, S 34.0 cm Aortic mean gradient, S 6.3 mm Hg Aortic peak gradient, S 10.7 mm Hg VTI ratio, LVOT/AV 0.63 Aortic valve area, VTI 1.9 cm^2 Velocity ratio, peak, LVOT/AV 0.63 Aortic valve area, peak velocity 1.9 cm^2 Velocity ratio, mean, LVOT/AV 0.61 Aortic valve area, mean velocity 1.8 cm^2 Aortic valve area/bsa, mean velocity 1.2 cm^2/m^2 Aorta Value Reference Aortic root ID, ED 2.9 cm Ascending aorta ID, A-P, S 3.1 cm RVOT Value Reference RVOT VTI, S 20.4 cm Left atrium Value Reference LA ID, A-P, ES 3.0 cm LA ID/bsa, A-P 2.0 cm/m^2 <=2.2 LA area, ES, A4C 17.6 cm^2 8.8 - 23.4 LA volume/bsa, ES, 1-p A4C 39 ml/m^2 LA/aortic root ratio 1.02 Mitral valve Value Reference Mitral E-wave peak velocity 0.84 m/sec Mitral A-wave peak velocity 0.92 m/sec Mitral deceleration time 153 ms 150 - 230 Mitral pressure half-time 44 ms Mitral peak gradient, D 2.8 mm Hg Mitral E/A ratio, peak 0.91 Mitral valve area, PHT, DP 4.9 cm^2 Pulmonary veins Value Reference Pulmonary vein peak velocity, S 0.74 m/sec Pulmonary vein peak velocity, D 0.6 m/sec Pulmonary vein velocity ratio, peak, 1.23 S/D Pulmonary vein A-wave reversal peak 0.55 m/sec velocity Tricuspid valve Value Reference Tricuspid regurg peak velocity 3.5 m/sec Tricuspid peak RV-RA gradient 49.6 mm Hg Right atrium Value Reference RA area, ES, A4C 12.1 cm^2 8.3 - 19.5 Pulmonic valve Value Reference Pulmonic peak gradient, S 4.4 mm Hg Legend: (L) and (H) anurag values outside specified reference range. I have personally reviewed the images and have reviewed and edited the reported findings. Electronically signed by Gualberto Huizar 07/16/2018 11:45
[2018-07-16] MEDS: Docusate Sodium 100 MG CAP PO (10:43)
--- NOTE | 2018-07-16 11:32 | OT.INTREAT ---
Date of service: 07/16/18 Time of Service: 10:40 Occupational Therapy Notes Occupational Therapy Inpatient Treatment Note Date: 07/16/18 PRECAUTIONS: Standard SUBJECTIVE: Pt was working with [employer] when OT arrived performing exercises. She reports that she would like to go home and that she is waiting to find out if she is going home with oxygen or not. She also reports that she would like to attend Pulmonary Rehabilitation program here at [facility] as she has attended in the past and this was very helpful. Pt states that she would like to hold on bathing as she would like a shower and she cannot perform this until her telemetry is disconnected. OBJECTIVE: PAIN:no c/o pain VITALS: Post PT session and start of OT session O2 was 96% Therapeutic Activities [id number]: OT educated pt on energy conservation techniques for ADLs and self care tasks, stress management techniques and community resources like pulmonary rehabilitation here at [facility]. OT educated pt on bathing routine in the shower to decrease labored breathing during bathing routine which pt was able to verbalize understanding of this. Her static and dynamic sitting balance is normal and her functional activity tolerance has improved. OT educated pt on recognition of difficulty breathing and respecting her breathing during ADL routines. ASSESSMENT/PLAN: Pt is functionally performing ADLs with increased (I). She is demonstrating increased functional activity tolerance and decreased labored breathing with ADLs/IADLs but it is noted that pt still has difficulty with breathing post ADLs. Pt was receptive to education and training. OT recommends that pt return home when medically cleared per MD. TREATMENT CODES/TIME: [id number], 15 minutes (10:40) Sabine Barnard OTR/[facility]
--- NOTE | 2018-07-16 11:38 | OTTR_ITS ---
Date of service: 07/16/18 Time of Service: 10:40 Occupational Therapy Notes Occupational Therapy Inpatient Treatment Note Date: 07/16/18 PRECAUTIONS: Standard SUBJECTIVE: Pt was working with [employer] when OT arrived performing exercises. She reports that she would like to go home and that she is waiting to find out if she is going home with oxygen or not. She also reports that she would like to attend Pulmonary Rehabilitation program here at [facility] as she has attended in the past and this was very helpful. Pt states that she would like to hold on bathing as she would like a shower and she cannot perform this until her telemetry is disconnected. OBJECTIVE: PAIN:no c/o pain VITALS: Post PT session and start of OT session O2 was 96% Therapeutic Activities [id number]: OT educated pt on energy conservation techniques for ADLs and self care tasks, stress management techniques and community resources like pulmonary rehabilitation here at [facility]. OT educated pt on bathing routine in the shower to decrease labored breathing during bathing routine which pt was able to verbalize understanding of this. Her static and dynamic sitting balance is normal and her functional activity tolerance has improved. OT educated pt on recognition of difficulty breathing and respecting her breathing during ADL routines. ASSESSMENT/PLAN: Pt is functionally performing ADLs with increased (I). She is demonstrating increased functional activity tolerance and decreased labored breathing with ADLs/IADLs but it is noted that pt still has difficulty with breathing post ADLs. Pt was receptive to education and training. OT recommends that pt return home when medically cleared per MD. TREATMENT CODES/TIME: 82446x3, 15 minutes (10:40) Sabine Barnard OTR/[facility]
--- NOTE | 2018-07-16 11:52 | PGE_ITS ---
Date of Service Date of service: 07/16/18 Time of Service: 11:15 Assessment and Plan (1) COPD with acute exacerbation: Current visit: Yes Status: Acute is responding well to treatment with azithromycin, ceftriaxone day 4/5 and IV steroids. chest xray yesterday again with no evidence of pneumonia. She has been afebrile and white count improved. she is oxygenating well on room air. Her echocardiogram results are pending (evaluate for pulmonary hypertension/diastolic dysfunction or other structural abnormalities). exercise oximetry today to see if she qualifies for home oxygen. continue steroid taper, will change to PO tomorrow. She chronically takes 5 mg daily so will plan slow taper to home dosing. her line was dislodged so will convert to po today. she will complete 5 days of antibiotics tomorrow and should not need at discharge. (2) Chronic tachycardia: Current visit: Yes Status: Acute improved with treatment of COPD exacerbation and IV fluids. echo results pending. consider ziopatch at discharge. (3) Systemic lupus erythematosus: Current visit: No Status: Acute stable, continue home medications. (4) Steroid-induced hyperglycemia: Current visit: Yes Status: Acute continue checking blood sugars ac/hs and provide sliding scale coverage as needed. she has not needed coverage yesterday or today, should continue to improve as steroids taper. A1C is 6.1, will defer follow up and management to pcp as outpatient. diabetic education consult ordered, continue diabetic diet (5) GERD (gastroesophageal reflux disease): Current visit: Yes Status: Chronic patient reports worsening symptoms since outpatient pharmacy changes to home medications. will continue current regimen at discharge and defer to pcp for follow up/medication adjustment (6) Rheumatoid arteritis: Current visit: Yes Status: Acute stable, continue home medications. is on steroid taper for copd exacerbation . will taper to home dose of 5 mg daily (7) Chronic adrenal insufficiency: Current visit: Yes Status: Acute received IV steroids for copd exacerbation. no symptoms, tolerating taper (8) DVT prophylaxis: Current visit: Yes Status: Acute continue enoxaparin daily. is getting out of bed and ambulating now. (9) Discharge planning issues: Current visit: Yes Status: Acute anticipate a discharge to home tomorrow is remains medically stable. May need ziopatch at discharge. should continue with diabetic education, which can be arranged with pcp office. anticipate home oxygen at discharge. Subjective Patient reports: feels better and afebrile Interval history since last seen: This is a 73 year old female with complex medical history including COPD, RA and SLE on chronic steroids who presented to the ED with a 4 day history of shortness of breath. There was no evidence of pneumonia but d/t immunocompromised state treated with ceftriaxone and azithromycin, in addition to IV steroids and bronchodilators. She was found tachycardic in the 130-150 range(sinus) and required bipap so was admitted to ICU. She has slowly been improving and has been stable off bipap and tolerating a steroid taper. She responded to IV fluids and her heart rate has improved. She has remained afebrile with no evidence of pneumonia by chest xray. Her white count has been trending downward from 21.47 to 12.56 today. She still is experiencing dyspnea with activity but at rest is talking in full sentences and oxygenating well on room air. She has been eating and drinking and bowels and bladder functioning well. Exam Const General: cooperative, comfortable and no acute distress Nutritional Appearance: average body habitus Orientation: alert, awake and oriented x3 HENMT Mouth: oral mucosae normal and tongue normal (no exudate or evidence of thrush) Resp Effort & Inspection: normal respiratory effort and able to speak in complete sentences Auscultation: wheezes (coarse scattered ) Cardio Rate: regular rate and tachycardic Heart Sounds: no murmurs GI Inspection: normal to inspection and non-distended Palpation: soft and nontender Auscultation: normal bowel sounds Skin General skin exam: no rashes or lesions noted Neuro General: alert, awake and oriented x3 Cranial Nerves: CN's II-XI intact bilaterally Cognition: normal cognition Speech: speech normal Gait: normal gait Extrem General: normal to inspection, full ROM and no edema Psych Appearance: grossly normal and well kempt Mood: congruent mood Affect: normal affect Attitude: cooperative Thought Process: normal Insight: insight good Judgment: judgment good Objective Objective Clinical Data: Abnormal lab results 07/16/18 07/16/18 Range/Units 06:28 06:28 WBC 12.56 H (4.4-10.8) k/cumm Hgb 11.1 L (12.0-15.5) g/dL Hct 35.7 L (36.0-46.0) % MCH 26.5 L (27.0-33.0) pg MCHC 31.1 L (32.0-36.0) g/dL RDW 16.2 H (11.7-14.6) % Absolute Neutrophils 11.20 H (1.2-6.7) k/cumm Absolute Lymphocytes 0.46 L (1.2-3.4) k/cumm Absolute Monocytes 0.75 H (0.11-0.7) k/cumm Chloride 109 H (98-107) mmol/L Glucose 141 H (70-100) mg/dL Calcium 8.1 L (8.5-10.1) mg/dL Vital Signs Temperature 36.1 C L 07/16/18 11:10 Temperature Source Tympanic 07/16/18 11:10 Pulse 88 07/16/18 11:10 Pulse Rhythm Regular 07/16/18 09:29 Pulse 115 H 07/15/18 10:01 Respiratory Rate 18 07/16/18 11:10 Respiratory Effort Non-Labored 07/16/18 09:29 Respiratory Depth Normal 07/16/18 09:29 Respiratory Pattern Normal 07/16/18 09:29 Blood Pressure 166/83 H 07/16/18 11:10 Blood Pressure Mean 104 07/15/18 10:00 Blood Pressure Position Supine 07/14/18 03:27 Pulse Oximetry 97 07/16/18 11:10 Oxygen Delivery Method Room Air 07/16/18 11:10 Oxygen Flow Rate 0 07/16/18 11:10 Fraction of Inspired Oxygen (FIO2) 45 07/13/18 14:58 Pain Level 0 07/16/18 11:10 Comment 07/16/18 10:30 Intake & Output 07/15/18 07/15/18 07/16/18 11:59 23:59 11:59 Intake Total 1450 / 3110 1660 / 3110 360 / 360 Output Total 400 / 1910 1510 / 1910 1900 / 1900 Balance 1050 / 1200 150 / 1200 -1540 / -1540 Weight 54.2 kg 54.3 kg Intake: IV 1000 / 2300 1300 / 2300 Oral 450 / 810 360 / 810 360 / 360 Output: Urine 400 / 1910 1510 / 1910 1900 / 1900 Other: Urine Color Light Cammy Admire Yellow Urine Appearance Clear Clear Clear Urine Odor Normal Normal None Voiding Methods Bedside Commode Toilet Toilet Laboratory Results WBC 12.56 k/cumm (4.4-10.8) H 07/16/18 06:28 RBC 4.19 m/cumm (4.00-5.20) 07/16/18 06:28 Hgb 11.1 g/dL (12.0-15.5) L 07/16/18 06:28 Hct 35.7 % (36.0-46.0) L 07/16/18 06:28 MCV 85.2 fL (80-95) 07/16/18 06:28 MCH 26.5 pg (27.0-33.0) L 07/16/18 06:28 MCHC 31.1 g/dL (32.0-36.0) L 07/16/18 06:28 RDW 16.2 % (11.7-14.6) H 07/16/18 06:28 Plt Count 281 x1000/uL (130-400) 07/16/18 06:28 MPV 10.2 fL (8.0-11.0) 07/16/18 06:28 Immature Gran % 1.0 07/16/18 06:28 Neutrophils % 89.2 07/16/18 06:28 Lymphocytes % 3.7 07/16/18 06:28 Monocytes % 6.0 07/16/18 06:28 Eosinophils % 0.0 07/16/18 06:28 Basophils % 0.1 07/16/18 06:28 Absolute Neutrophils 11.20 k/cumm (1.2-6.7) H 07/16/18 06:28 Absolute Lymphocytes 0.46 k/cumm (1.2-3.4) L 07/16/18 06:28 Absolute Monocytes 0.75 k/cumm (0.11-0.7) H 07/16/18 06:28 Absolute Eosinophils 0.00 k/cumm (0.0-0.7) 07/16/18 06:28 Absolute Basophils 0.01 k/cumm (0.0-0.2) 07/16/18 06:28 Sodium 145 mmol/L (136-145) 07/16/18 06:28 Potassium 3.8 mmol/L (3.5-5.1) 07/16/18 06:28 Chloride 109 mmol/L (98-107) H 07/16/18 06:28 Carbon Dioxide 27.8 mmol/L (21.0-32.0) 07/16/18 06:28 Anion Gap 8.2 mmol/L (3-11) 07/16/18 06:28 BUN 14 mg/dL (7-18) 07/16/18 06:28 Creatinine 0.58 mg/dL (0.55-1.02) 07/16/18 06:28 Estimated GFR/1.73 m2 >= 60.00 (mL/min/1.73m2) 07/16/18 06:28 Glucose 141 mg/dL (70-100) H 07/16/18 06:28 Hemoglobin A1c 6.1 % (4.5-6.2) 07/14/18 06:15 Calcium 8.1 mg/dL (8.5-10.1) L 07/16/18 06:28 Magnesium 2.1 mg/dL (1.8-2.4) 07/15/18 06:20 Total Bilirubin 0.5 mg/dL (0.2-1.0) 07/13/18 14:50 AST 13 U/L (15-37) L 07/13/18 14:50 ALT 20 U/L (12-78) 07/13/18 14:50 Alkaline Phosphatase 89 U/L (46-116) 07/13/18 14:50 Troponin I < 0.02 ng/mL (0.00-0.06) 07/13/18 14:50 NT-Pro-B Natriuret Pep 146 pg/mL (-299) 07/13/18 14:50 Total Protein 7.7 g/dL (6.4-8.2) 07/13/18 14:50 Albumin 3.5 g/dL (3.4-5.0) 07/13/18 14:50 TSH 0.11 uIU/mL (0.358-3.74) L 07/15/18 06:20 Free T4 0.91 ng/dL (0.76-1.46) 07/15/18 06:20 Urine Color Red (Yellow) 07/15/18 19:28 Urine Clarity Clear 07/15/18 19:28 Urine pH 6.5 (5-8) 07/15/18 19:28 Ur Specific [place] 1.020 (1.005-1.025) 07/15/18 19:28 Urine Protein Negative mg/dL (Negative) 07/15/18 19:28 Urine Ketones Negative mg/dL (Negative) 07/15/18 19:28 Urine Blood Negative (Negative) 07/15/18 19:28 Urine Nitrite Negative (Negative) 07/15/18 19:28 Urine Bilirubin Negative (Negative) 07/15/18 19:28 Urine Urobilinogen 0.2 EU/dL (Up TO 0.2) 07/15/18 19:28 Ur Leukocyte Esterase Negative (Negative) 07/15/18 19:28 Urine Glucose 100 mg/dL (Negative) 07/15/18 19:28
[2018-07-16] MEDS: cefTRIAXone 1 GM/50 ML BAG IVPB (14:15)
--- NOTE | 2018-07-16 14:42 | PT.INTREAT ---
Date of service: 07/16/18 Time of Service: 14:43 PT Notes Inpatient Physical Therapy Treatment Note [facility] Date: 07/16/18 PRECAUTIONS: Fall, monitor SaO2 SUBJECTIVE: Louann is agreeable to participating in PT. OBJECTIVE: PAIN: No complaints of pain BED MOBILITY/TRANSFERS Sit-stand: I Stand-sit: I GAIT Assistive Device: No AD Weight bearing: Full Assist: S Distance: Approx 300' in a.m.; approx 500' in p.m. Deviation: SOB, seated rest x1, LOB x2 with self recovery, path deviation in a.m.; SOB, no rests in p.m. VITALS: 94-96% on RA with gait training THEREX: Patient completed a standing lower extremity strengthening program, as per flow sheet. ASSESSMENT: Patient tolerated session well, with complaints of SOB with activity. Patient was able to tolerate a progression in her ther ex program, performing exercises in standing position with minimal UE support. Patient would benefit from continued conditioning for improved activity tolerance and cardiovascular endurance. PLAN: Continue with PTs POC TREATMENT CODE/TIME: Session 1: 30 minutes; [id number], [id number] Session 2: 15 minutes; [id number]
--- NOTE | 2018-07-16 14:48 | PTTR_ITS ---
Date of service: 07/16/18 Time of Service: 14:43 PT Notes Inpatient Physical Therapy Treatment Note [facility] Date: 07/16/18 PRECAUTIONS: Fall, monitor SaO2 SUBJECTIVE: Louann is agreeable to participating in PT. OBJECTIVE: PAIN: No complaints of pain BED MOBILITY/TRANSFERS Sit-stand: I Stand-sit: I GAIT Assistive Device: No AD Weight bearing: Full Assist: S Distance: Approx 300' in a.m.; approx 500' in p.m. Deviation: SOB, seated rest x1, LOB x2 with self recovery, path deviation in a.m.; SOB, no rests in p.m. VITALS: 94-96% on RA with gait training THEREX: Patient completed a standing lower extremity strengthening program, as per flow sheet. ASSESSMENT: Patient tolerated session well, with complaints of SOB with activity. Patient was able to tolerate a progression in her ther ex program, performing exercises in standing position with minimal UE support. Patient would benefit from continued conditioning for improved activity tolerance and cardiovascular endurance. PLAN: Continue with PTs POC TREATMENT CODE/TIME: Session 1: 30 minutes; [id number], [id number] Session 2: 15 minutes; [id number]
--- NOTE | 2018-07-16 15:29 | W.INDIABCONS ---
Date of service: 07/16/18 Time of Service: 15:29 Diabetes Inpatient Consult DESCRIPTION/ASSESSMENT: Appreciate diabetes consult for Rafaela Mathew who is 73 years old hospitalized for COPD and multiple co-morbidities. She takes Prednisone chronically secondary to adrenal insufficiency although at this time I do not see steroid on her current medication list. A1c 6.1 BMI 23 She takes no medication for diabetes at home. Blood sugars here 116-175 with sensitive insulin correction with lowest blood sugars today after Pednisone is d/c. She is eating 9-66grams carbohydrate at meals. INTERVENTION: No intervention warranted at this time. PLAN: Will follow blood sugars and f/u as deemed helpful. Time Spent in Nutritional Counseling and Treatment: 0 time face to face inpatient
[2018-07-16] MEDS: Azithromycin 250 MG TAB 500 MG PO (15:36)
[2018-07-16] MEDS: Cefuroxime 500 MG TAB PO ×2 (15:36→19:57)
[2018-07-16] MEDS: Enoxaparin 40 MG/0.4 ML SYR SC (17:56)
[2018-07-16] MEDS: Melatonin 3 MG TAB 9 MG PO (21:09)
[2018-07-16] MEDS: clonazePAM 1 MG TAB PO (21:10)
[2018-07-16] MEDS: Enalapril 5 MG TAB 10 MG PO (21:10)
--- NOTE | 2018-07-16 21:46 | NUR.NOTE ---
Nursing Note: Pt. brought to my attention two itchy spots on both of her wrists, these spots are about dime sized, not raised or warm to touch. Pt reports using a new lotion today, but otherwise nothing new. CC aware. Pt. instructed not to use that lotion at this time.
[2018-07-17 00:35] VITALS: BP 112/57; PULSE 101; RESP 18; TEMP 37.1; O2SAT 92
[2018-07-17 07:02] VITALS: PULSE 79
[2018-07-17 07:40] VITALS: BP 133/77; PULSE 98; RESP 18; TEMP 36.6; O2SAT 95
[2018-07-17] MEDS: Albuterol/Ipratropium 3 ML UPD VIAL UPD (07:40)
[2018-07-17] MEDS: Budesonide 0.5 MG/2 ML UPD VIAL UPD (07:41)
[2018-07-17] MEDS: predniSONE 20 MG TAB 60 MG PO (09:32)
[2018-07-17] MEDS: amLODIPine 10 MG TAB PO (09:33)
[2018-07-17] MEDS: Venlafaxine 37.5 MG CAPCR 75 MG PO (09:33)
[2018-07-17] MEDS: Enalapril 5 MG TAB 20 MG PO (09:34)
[2018-07-17] MEDS: Pantoprazole 40 MG TABCR PO (09:35)
[2018-07-17] MEDS: guaiFENesin 600 MG TABCR PO (09:35)
[2018-07-17] MEDS: Cefuroxime 500 MG TAB PO (09:40)
[2018-07-17] MEDS: Benzonatate 100 MG CAP PO ×2 (09:40→14:09)
[2018-07-17] MEDS: Calcium 600mg/Vit D 200U TAB 1 TAB PO (09:40)
[2018-07-17 10:55] VITALS: PULSE 103; PULSE 128; PULSE 144; RESP 20; RESP 24; O2SAT 96; O2SAT 97
--- NOTE | 2018-07-17 11:04 | OT.INDS ---
Date of service: 07/17/18 Time of Service: 11:04 Occupational Therapy Notes Occupational Therapy Inpatient Discharge Summary Dates of Service: 07/14/18-07/17/18 Date: 07/17/18 Referring Doctor:Rochelle Buckner MD OT Orders: Eval and Treat Precautions: Fall, Standard PATIENT PROFILE/ADMITTING DIAGNOSIS: Pt is a 73 year old female was was admitted through the ER on 07/13/18 for COPD exacerbation, tachycardia, acute respiratory distress and hypoxia. Past Medical History: COPD, lupus, MS, HTN, anxiety, depression, GERD, breast cancer, [place] palsy, osteoporosis LLE, (B) salpingectomy with oophorectomy, (B) breast masectomy. Social History/Home Situation: Pt lives in [place] and has an apartment in [facility] for the weekends as her is still currently working. She reports that at baseline she has difficulty with functional activity tolerance in the kitchen. She was showering in her walk in shower is also tasking for her and she is tired post bathing routine. Pt is still currently driving. She has difficulty at baseline with any bending activities that she has to do in her ADL routine but states that this does not mean that she cannot do it, it just takes a little longer. Equipment owned/DME: raised toilet seat, tree puller, grab bars, sock aid, shower chair THIS DOCUMENT SERVES A SUMMARY OF CARE NO SKILLED OT SERVICES PROVIDED FOR THIS DOCUMENTATION SUBJECTIVE: NT OBJECTIVE: ROM: RUE AROM WFL L UE AROM WFL STRENGTH: RUE shoulder flexion 4/5, bicep 5/5, tricep 5/5, rejector was symmetrical LUE shoulder flexion 5/5, bicep 5/5, tricep 5/5, rejector was symmetrical FUNCTIONAL MOBILITY/ADLS: BATHING Bathing UE (I) face, (B) UE, abdomen, max (A) back Bathing LE (I) DRESSING (I) donning and doffing (B) socks and hospital gown GROOMING Standing at sink (I) TOILETING On toilet (I) EATING (I) BALANCE: Static sitting Normal Dynamic Sitting Normal Static Standing Normal Dynamic Standing Normal ASSESSMENT: Patient is a 73-year-old female referred to occupational therapy services with diagnosis of COPD acute exacerbation, tachycardia, acute respiratory distress and hypoxia. Pt was seen for 3 skilled OT services. OT recommends that pt return home when medically cleared per MD. Pt has demonstrated significant increase in ADL routines with LRD. At this time pt will discharge pt from skilled OT services. GOALS 1. Transfers (I) LRD (MET) 2. Dressing sitting in chair pt will be able to perform UE/LE dressing (I) (MET) 3. Bathing Pt will be able to perform bathing routine in the shower (I) (NOT MET with OT) 4. Toileting (I) on toilet (MET) 5. Eating (I) (MET) 6. Grooming (I) with standing at sink for brushing teeth (MET) PLAN OF CARE/TREATMENT PLAN: Discharge from skilled OT services at this time. DISCHARGE RECOMMENDATIONS Home when medically cleared per MD. TREATMENT TIME/MINUTES/CODES N/A Sabine Barnard OTR/L [facility]
--- NOTE | 2018-07-17 11:10 | OTDS_ITS ---
Date of service: 07/17/18 Time of Service: 11:04 Occupational Therapy Notes Occupational Therapy Inpatient Discharge Summary Dates of Service: 07/14/18-07/17/18 Date: 07/17/18 Referring Doctor:Rochelle Bucnker MD OT Orders: Eval and Treat Precautions: Fall, Standard PATIENT PROFILE/ADMITTING DIAGNOSIS: Pt is a 73 year old female was was admitted through the ER on 07/13/18 for COPD exacerbation, tachycardia, acute respiratory distress and hypoxia. Past Medical History: COPD, lupus, MS, HTN, anxiety, depression, GERD, breast cancer, [place] palsy, osteoporosis LLE, (B) salpingectomy with oophorectomy, (B) breast masectomy. Social History/Home Situation: Pt lives in [place] and has an apartment in [facility] for the weekends as her is still currently working. She reports that at baseline she has difficulty with functional activity tolerance in the kitchen. She was showering in her walk in shower is also tasking for her and she is tired post bathing routine. Pt is still currently driving. She has difficulty at baseline with any bending activities that she has to do in her ADL routine but states that this does not mean that she cannot do it, it just takes a little longer. Equipment owned/DME: raised toilet seat, bookkeeping clerks supervisor, grab bars, sock aid, shower chair THIS DOCUMENT SERVES A SUMMARY OF CARE NO SKILLED OT SERVICES PROVIDED FOR THIS DOCUMENTATION SUBJECTIVE: NT OBJECTIVE: ROM: RUE AROM WFL L UE AROM WFL STRENGTH: RUE shoulder flexion 4/5, bicep 5/5, tricep 5/5, conservation biology professor was symmetrical LUE shoulder flexion 5/5, bicep 5/5, tricep 5/5, conservation biology professor was symmetrical FUNCTIONAL MOBILITY/ADLS: BATHING Bathing UE (I) face, (B) UE, abdomen, max (A) back Bathing LE (I) DRESSING (I) donning and doffing (B) socks and hospital gown GROOMING Standing at sink (I) TOILETING On toilet (I) EATING (I) BALANCE: Static sitting Normal Dynamic Sitting Normal Static Standing Normal Dynamic Standing Normal ASSESSMENT: Patient is a 73-year-old female referred to occupational therapy services with diagnosis of COPD acute exacerbation, tachycardia, acute res piratory distress and hypoxia. Pt was seen for 3 skilled OT services. OT recommends that pt return home when medically cleared per MD. Pt has demonstrated significant increase in ADL routines with LRD. At this time pt will discharge pt from skilled OT services. GOALS 1. Transfers (I) LRD (MET) 2. Dressing sitting in chair pt will be able to perform UE/LE dressing (I) (MET) 3. Bathing Pt will be able to perform bathing routine in the shower (I) (NOT MET with OT) 4. Toileting (I) on toilet (MET) 5. Eating (I) (MET) 6. Grooming (I) with standing at sink for brushing teeth (MET) PLAN OF CARE/TREATMENT PLAN: Discharge from skilled OT services at this time. DISCHARGE RECOMMENDATIONS Home when medically cleared per MD. TREATMENT TIME/MINUTES/CODES N/A Sabine Barnard OTR/L [facility]
[2018-07-17] MEDS: Albuterol 2.5 MG/3 ML INH SOLN VIAL UPD (11:11)
[2018-07-17 11:35] VITALS: BP 145/79; PULSE 110; RESP 18; TEMP 37; O2SAT 97
[2018-07-17 11:56] VITALS: PULSE 121
--- NOTE | 2018-07-17 12:41 | PT.INDS ---
Date of service: 07/17/18 Time of Service: 11:31 PT Notes Inpatient Physical Therapy Discharge Summary Dates: 07/17/2018 Dates of Service: 07/14/18-07/17/18 Referring Doctor: Rochelle Buckner MD PT Orders: PT CONSULT: Eval and treat Precautions: Fall. Standard. Patient Profile/Admitting Diagnosis: Patient is a 73-year-old female admitted in the ICU on 07/13/2018 diagnosis of acute COPD, acute hypoxic respiratory failure, and steroid-induced hyperglycemia. Patient presents with reduced activity tolerance, generalized weakness, and shortness of breath. PMHX: Medical History Bronchiectasis (Chronic) Chronic adrenal insufficiency (Chronic) Chronic tachycardia (Chronic) Chronic use of steroids (Chronic) Hx of cancer of uterus (Chronic) Hx of cervical cancer (Chronic) Hypoxia (Chronic) IBS (irritable bowel syndrome) (Chronic) Insomnia (Chronic) Lupus nephritis (Chronic) Osteoarthritis (Chronic) RLS (restless legs syndrome) (Chronic) Rheumatoid arthritis (Chronic) ILD (interstitial lung disease) (Suspected) Koch's palsy COPD (chronic obstructive pulmonary disease) Depression GERD (gastroesophageal reflux disease) Hx of breast cancer Hypertension Multiple sclerosis Osteoporosis SLE (systemic lupus erythematosus) Surgical History History of appendectomy (Chronic) History of right shoulder replacement (Resolved) History of surgery on right wrist (Resolved) Personal history of bleeding following renal biopsy (Resolved) Pilonidal cyst (Resolved) S/P hip hemiarthroplasty (Resolved) S/P tonsillectomy (Resolved) Bilateral salpingectomy with oophorectomy Breast, Mastectomy Bilateral Colonoscopy - MAC (06/03/17) Extraction of cataract Fracture, Open Treatment (10/01/14) Hysterectomy, Laproscopic Social History/Home Situation: Patient lives with her on the second floor of an apartment building with 13 steps to get to her apartment with rails on the left going up. Patient was independent with all aspects of ADLs prior to admission and was not using any assistive device nor any adaptive equipment at home. Her and her daughter Heather helps with meal preparation and paint tester as well as with laundry. She denies any falls in the past 12 months. Current Functional Limitations: Need for assistance with bed mobility, transfers, and ambulation, limited activity tolerance Equipment Owned/DME: FWW, straight cane although she states she does not use any assistive ambulatory device prior to admission Subjective: Patient states that she is looking forward to going home and is agreeable to recommendations for having home health PT facilitate a smoother transition to her return to her apartment. Objective: General Observation: Patient seen sitting on her chair by the side of her bed. Mental Status: Alert and oriented x3 Pain: 0/10 ROM: Right Upper Extremity: WFL Left Upper Extremity: WFL Right Lower Extremity: WFL Left Lower Extremity: WFL Strength: Right Upper Extremity: Shoulder flexors 4+/5. Shoulder abductors 4+/5. Elbow flexors 4+/5. Letterer strong and functional. Left Upper Extremity: Shoulder flexors 4+/5. Shoulder abductors 4+/5. Elbow flexors 4+/5. Letterer strong and functional. Right Lower Extremity: Hip flexors 4-/5. Hip abductors 4-/5. Knee flexors 4/5. Knee extensors 3+/5. Ankle plantar flexors/dorsiflexors 4/5. Left Lower Extremity: Hip flexors 4-/5. Hip abductors 4-/5. Knee flexors 4/5. Knee extensors 3+/5. Ankle plantar flexors/dorsiflexors 4/5. Sensation: Intact to distal bilateral lower extremities as to pain and pressure. Bed Mobility/Transfers: Rolling min A Supine to sit min A Sit to supine min A Sit to stand min A with FWW Stand to sit min A with FWW Bed to chair min A with FWW Chair to bed min A with FWW Gait: Patient has been able to tolerate up to 500 feet of level surface ambulation without an assistive device without any rests and shortness of breath observed as of 07/16/2018 per DOCUMENT REVIEWER documentation. Balance: Static Sitting: Good Dynamic Sitting: Good Static Standing: Fair Dynamic Standing: Fair Special Tests: Mobility Limitations Standardized Measure [facility] AM-PAC 6 clicks Basic Mobility Inpatient Short Form: Raw Score: 23 CMS Score: 11.20% deficit Assessment: Patient is a 73 year old female referred to physical therapy services with the diagnosis of COPD exacerbation, acute hypoxic respiratory failure, and steroid-induced hyperglycemia. Patient presents with clinical signs and symptoms consistent with current/admitting diagnoses that has resulted to mobility limitations, gait instability, generalized weakness, and lack of motor control as demonstrated by the following impairment level findings: 1. Decreased strength to B LE major muscle groups 2. Impaired balance 3. Impaired activity tolerance Impairments are contributing to the following functional limitations: 1. Decreased bed mobility skills 2. Increased dependence with transfers 3. Inability to safely ambulate without assistive device and physical assistance 4. Increase completion time for mobility ADL performance 5. Increased fall risk due to limited endurance 6. Inability to negotiate steps alone safely Goals: Goals X1 week 1. Supine-Sit independent MET 2. Sit-Supine independent MET 3. Sit-Stand independent MET 4. Stand-Sit independent MET 5. Bed-Chair independent MET 6. Chair-Bed independent MET 7. Gait on level surface ambulation with use of least restrictive device for at least 300 feet without report of pain nor dyspnea MET 8. Independent with home exercise program MET 9. Balance good for static and dynamic standing MET DISCHARGE RECOMMENDATIONS: Patient may benefit from a short-term home health physical therapy services in order to regain independent premorbid level with least restrictive device, evaluate home safety, and educate/train with HEP progression in anticipation of returning to home with . TREATMENT CODE/TIME: 41787 30 minutes beginning at 11:31 AM. Thank you for this referral. Ann Marie Taylor, PT, DPT, CLT [facility]
--- NOTE | 2018-07-17 12:46 | INDS_ITS ---
Date of service: 07/17/18 Time of Service: 11:31 PT Notes Inpatient Physical Therapy Discharge Summary Dates: 07/17/2018 Dates of Service: 07/14/18-07/17/18 Referring Doctor: Rochelle Buckner MD PT Orders: PT CONSULT: Eval and treat Precautions: Fall. Standard. Patient Profile/Admitting Diagnosis: Patient is a 73-year-old female admitted in the ICU on 07/13/2018 diagnosis of acute COPD, acute hypoxic respiratory failure, and steroid-induced hyperglycemia. Patient presents with reduced activity tolerance, generalized weakness, and shortness of breath. PMHX: Medical History Bronchiectasis (Chronic) Chronic adrenal insufficiency (Chronic) Chronic tachycardia (Chronic) Chronic use of steroids (Chronic) Hx of cancer of uterus (Chronic) Hx of cervical cancer (Chronic) Hypoxia (Chronic) IBS (irritable bowel syndrome) (Chronic) Insomnia (Chronic) Lupus nephritis (Chronic) Osteoarthritis (Chronic) RLS (restless legs syndrome) (Chronic) Rheumatoid arthritis (Chronic) ILD (interstitial lung disease) (Suspected) Koch's palsy COPD (chronic obstructive pulmonary disease) Depression GERD (gastroesophageal reflux disease) Hx of breast cancer Hypertension Multiple sclerosis Osteoporosis SLE (systemic lupus erythematosus) Surgical History History of appendectomy (Chronic) History of right shoulder replacement (Resolved) History of surgery on right wrist (Resolved) Personal history of bleeding following renal biopsy (Resolved) Pilonidal cyst (Resolved) S/P hip hemiarthroplasty (Resolved) S/P tonsillectomy (Resolved) Bilateral salpingectomy with oophorectomy Breast, Mastectomy Bilateral Colonoscopy - MAC (06/03/17) Extraction of cataract Fracture, Open Treatment (10/01/14) Hysterectomy, Laproscopic Social History/Home Situation: Patient lives with her on the second floor of an apartment building with 13 steps to get to her apartment with rails on the left going up. Patient was independent with all aspects of ADLs prior to admission and was not using any assistive device nor any adaptive equipment at home. Her and her daughter Heather helps with meal preparation and assembler leather goods as well as with laundry. She denies any falls in the past 12 months. Current Functional Limitations: Need for assistance with bed mobility, transfers, and ambulation, limited activity tolerance Equipment Owned/DME: FWW, straight cane although she states she does not use any assistive ambulatory device prior to admission Subjective: Patient states that she is looking forward to going home and is agreeable to recommendations for having home health PT facilitate a smoother transition to her return to her apartment. Objective: General Observation: Patient seen sitting on her chair by the side of her bed. Mental Status: Alert and oriented x3 Pain: 0/10 ROM: Right Upper Extremity: WFL Left Upper Extremity: WFL Right Lower Extremity: WFL Left Lower Extremity: WFL Strength: Right Upper Extremity: Shoulder flexors 4+/5. Shoulder abductors 4+/5. Elbow flexors 4+/5. Slasher Runner strong and functional. Left Upper Extremity: Shoulder flexors 4+/5. Shoulder abductors 4+/5. Elbow flexors 4+/5. Slasher Runner strong and functional. Right Lower Extremity: Hip flexors 4-/5. Hip abductors 4-/5. Knee flexors 4/5. Knee extensors 3+/5. Ankle plantar flexors/dorsiflexors 4/5. Left Lower Extremity: Hip flexors 4-/5. Hip abductors 4-/5. Knee flexors 4/5. Knee extensors 3+/5. Ankle plantar flexors/dorsiflexors 4/5. Sensation: Intact to distal bilateral lower extremities as to pain and pressure. Bed Mobility/Transfers: Rolling min A Supine to sit min A Sit to supine min A Sit to stand min A with FWW Stand to sit min A with FWW Bed to chair min A with FWW Chair to bed min A with FWW Gait: Patient has been able to tolerate up to 500 feet of level surface ambulation without an assistive device without any rests and shortness of breath observed as of 07/16/2018 per [employer] documentation. Balance: Static Sitting: Good Dynamic Sitting: Good Static Standing: Fair Dynamic Standing: Fair Special Tests: Mobility Limitations Standardized Measure [facility] AM-PAC 6 clicks Basic Mobility Inpatient Short Form: Raw Score: 23 CMS Score: 11.20% deficit Assessment: Patient is a 73 year old female referred to physical therapy services with the diagnosis of COPD exacerbation, acute hypoxic respiratory failure, and steroid-induced hyperglycemia. Patient presents with clinical signs and symptoms consistent with current/admitting diagnoses that has resulted to mobility limitations, gait instability, generalized weakness, and lack of motor control as demonstrated by the following impairment level findings: 1. Decreased strength to B LE major muscle groups 2. Impaired balance 3. Impaired activity tolerance Impairments are contributing to the following functional limitations: 1. Decreased bed mobility skills 2. Increased dependence with transfers 3. Inability to safely ambulate without assistive device and physical assistance 4. Increase completion time for mobility ADL performance 5. Increased fall risk due to limited endurance 6. Inability to negotiate steps alone safely Goals: Goals X1 week 1. Supine-Sit independent MET 2. Sit-Supine independent MET 3. Sit-Stand independent MET 4. Stand-Sit independent MET 5. Bed-Chair independent MET 6. Chair-Bed independent MET 7. Gait on level surface ambulation with use of least restrictive device for at least 300 feet without report of pain nor dyspnea MET 8. Independent with home exercise program MET 9. Balance good for static and dynamic standing MET DISCHARGE RECOMMENDATIONS: Patient may benefit from a short-term home health physical therapy services in order to regain independent premorbid level with least restrictive device, evaluate home safety, and educate/train with HEP progression in anticipation of returning to home with . TREATMENT CODE/TIME: 40674 30 minutes beginning at 11:31 AM. Thank you for this referral. Ann Marie Taylor, PT, DPT, CLT [facility]
--- NOTE | 2018-07-17 14:56 | PDOC.CMDIS ---
- If Service Date Differs Date of service: 07/17/18 Time of Service: 14:56 LACE Index Scoring Tool - Questions: Length of Stay (in days): 4 - 6 Acuity (Admit via E.D.?): Yes Comorbidities: Chronic Pulmonary Disease E.D. Visits: 1 - Answers: Total Score: 10 Risk of Readmission: High Risk Care Management Discharge Reason for Hospitalization: Acute exacerbation of COPD; acute hypoxic respiratory failure Discharge Plan: Kateryna will return home with HH services: nursing, PT and OT. CM left voicemail for HH with referral information. She will also attend Pulmonary Rehab. Followup with PCP as scheduled on 07/23/2018. Patient/Family Education Needs: Discharge education, followup and plan of care. Services Needed at Discharge: Home Health Care Services, Occupational Therapy, Physical Therapy
[2018-07-17] MEDS: Azithromycin 250 MG TAB 500 MG PO (14:57)
--- NOTE | 2018-07-17 15:22 | W.PM.DS.N ---
Date of service: 07/17/18 Time of Service: 15:23 DS: Diagnosis Discharge Diagnosis (1) COPD with acute exacerbation: Status: Acute (2) Chronic tachycardia: Status: Acute (3) Systemic lupus erythematosus: Status: Acute (4) Steroid-induced hyperglycemia: Status: Acute (5) GERD (gastroesophageal reflux disease): Status: Chronic (6) Rheumatoid arteritis: Status: Acute (7) Chronic adrenal insufficiency: Status: Acute Discharge Plan Disposition Patient Disposition: HOME W/HOME HEALTH SERVICE Condition: Stable Discharge Details Reason For Visit: ACUTE EXACERBATION OF COPD,ACUTE HYPOXIC RESP FAIL Admit Date/Time: 07/13/18 16:15 Admit Provider: Rochelle Buckner Attending Provider: Rochelle Buckner [facility] Hospital Course: Rafaela Mathew is a very pleasant 73-year-old female with a past medical history significant for COPD, not on home oxygen therapy, as well as bronchiectasis and question of underlying and disc initial lung disease, as well as RA and SLE on chronic prednisone, chronic adrenal insufficiency and a history of prior pneumonia who presented to the [facility] emergency department on 07/13/2018 with reports of worsening shortness of breath with wheezing and a cough productive of clear sputum. She does have chronic shortness of breath but felt it was worsening progressively over the prior 4 days before her presentation to the emergency department. She reported on admission that she was previously on chronic suppressive antibiotics for her recurrent pulmonary infections, however, she had issues with insurance coverage and had not been taking them for about a month. The emergency department, she was in significant respiratory distress with a respiratory rate in the 40s and heart rate in the 140s, she was placed on BiPAP. Her chest x-ray did not show pneumonia. She was treated with steroids and nebulizer treatments. She was admitted to the ICU initially due to presenting in extremis. She was treated with IV antibiotics, high-dose steroids, nebulizer treatments, supplemental oxygen. Her respiratory status is improved, her tachycardia improved, however she did remain in the 90s to the low 100s throughout her hospitalization on telemetry. She was in normal sinus rhythm on telemetry. Blood cultures yielded no growth at 72 hours. She had an echocardiogram which showed systolic function was hyperdynamic, the LVEF was 65-70%, there was dynamic obstruction during Valsalvain the outflow tract, with a peak gradient of 22mm Hg. Wall motion was normal; there were no regional wall motion abnormalities. The left atrium was mildly dilated, pulmonary systolic pressure was increased in the range of 40-45 mmHg. She will need to follow up with cardiology. Her TSH was noted to be low at 0.21 and 0.11, her free T4 was normal. Her respiratory status improved, she was moved out to the [facility] floor. She was no longer requiring oxygen by the day of discharge. She had an exercise oximetry test on the day of discharge, she did not qualify for home oxygen even with ambulation. Her white count improved each day. At the time of discharge she will have completed a full 5-day course of antibiotics. She will not be discharged home on antibiotics. She will need to taper steroids slowly back to her usual dose of 5 mg/day. She would benefit from pulmonary rehab after recovery from this illness. She was seen by palliative care during her hospitalization, she would like to follow-up with palliative after her discharge home. Dr. Mock is planning on seeing her at home in 4-6 weeks. She will follow-up with her primary care provider as scheduled. We will have her follow-up with her build and release manager at [facility] as well. She worked with physical therapy while she was a patient. PT recommends short-term home health physical therapy services in order to regain independent premorbid level with least restrictive device, evaluate home safety, and educate/train with HEP progression in anticipation of returning to home with . She will be referred for home health services. Home Meds and New Rx's Prescriptions: New nystatin 100,000 unit/mL Suspension 500,000 units PO 5X/DAY 5 Days Qty: 125 RF: 0 pantoprazole 40 mg Tablet,Delayed Release (Dr/Ec) 40 mg PO DAILY@0730 Qty: 30 RF: 0 cefuroxime axetil 500 mg Tablet 500 mg PO BID Qty: 1 RF: 0 guaifenesin [Mucinex] 600 mg Tablet Extended Release 12hr 600 mg PO BID Qty: 10 RF: 0 prednisone 10 mg tablet 10 mg PO DAILY Qty: 89 RF: 0 Continued albuterol sulfate [Ventolin HFA] 8 GM HFA aerosol inhaler 2 puff Inhalation Q4H PRN PRNQty: 3 RF: 4 calcium carbonate-vitamin D3 1 EACH tablet 1 ea PO DAILY Qty: 90 RF: 6 prednisone 5 MG tablet 5 - 10 mg PO DAILY Qty: 90 RF: 1 Incruse Ellipta 62.5 MCG blister with device 1 inh Inhalation DAILY Qty: 1 RF: 6 amlodipine 10 mg tablet 10 mg PO DAILY Qty: 30 RF: 12 enalapril maleate [Vasotec] 20 mg tablet 20 mg PO as directed Qty: 30 RF: 12 venlafaxine 75 mg capsule,extended release 24hr 75 mg PO DAILY Qty: 90 RF: 2 leflunomide 10 mg tablet 10 mg PO DAILY Qty: 90 RF: 4 clonazepam 1 mg tablet 1 mg PO QPM PRN (Reason: anxiety) Qty: 30 RF: 2 budesonide 0.5 mg/2 mL suspension for nebulization 0.5 mg Inhalation DAILY RF: 0 dicyclomine 10 mg Capsule 10 - 20 mg PO TID PRN PRN (Reason: abdominal cramping) RF: 0 Discharge Instructions Instructions: COPD (Chronic Obstructive Pulmonary Disease) (DC) Additional Instructions: Take your last antibiotic tonight. Taper prednisone slowly as follows: take 6 tabs/day x4 days,then 5 tabs x5 days,then 4 tabs x5 days,then 3 tabs x5 days,then 2 tabs x5 days then 1 tab x5 days, then resume your usual 5 mg daily. If you begin to experience increasing shortness of breath while tapering steroids, contact your PCP right away. Pulmonary rehab when you have recovered from this acute illness. Follow up with cardiology. Follow up with pulmonology. Follow up with your PCP. Take care! Stand Alone Forms: Nursing Discharge Form Referrals: Katina Lopez MD [Primary Care Provider] - 07/23/18 2:00 pm Jayesh Pacheco I [ [facility] STAFF PHYSICIAN] - 07/25/18 8:45 am Activity:: Activity as Tolerated Equipment/Supplies:: No Equipment Needed Diet:: heart healthy Discharge Orders Discharge Orders: Discharge Order (Routine); Ordered 07/17/18 Ordered By: Lorena Davis Exam Narrative Exam Narrative: General: Very pleasant elderly female, sitting up in the chair, appears comfortable, in NAD. She is speaking in full sentences without shortness of breath. HEENT: Atraumatic, normocephalic; pupils equal and round, EOMI, mucous membranes moist. Cardiovascular: regular rate and rhythm, rate in the 90s, no murmur appreciated. Lungs: respirations even and unlabored. Lung sounds clear to auscultation throughout. Lower extremities without clubbing, cyanosis or edema, Gastrointestinal: normoactive bowel sounds, abdomen is soft, nontender, nondistended Extremities: BLEs with trace to 1+ pitting edema bilaterally, pedal pulses palpable. DS: Data Vitals/I&O Vitals and I&O: Vital Signs Temperature 37 C 07/17/18 11:35 Temperature Source Skin 07/17/18 11:35 Pulse 121 H 07/17/18 11:56 Pulse Rhythm Regular 07/17/18 09:55 Pulse 115 H 07/15/18 10:01 Respiratory Rate 18 07/17/18 11:35 Respiratory Effort Non-Labored 07/17/18 09:55 Respiratory Depth Normal 07/17/18 09:55 Respiratory Pattern Normal 07/17/18 08:00 Blood Pressure 145/79 H 07/17/18 11:35 Blood Pressure Mean 104 07/15/18 10:00 Blood Pressure Position Supine 07/14/18 03:27 Pulse Oximetry 97 07/17/18 11:35 Oxygen Delivery Method Room Air 07/17/18 11:35 Oxygen Flow Rate 0 07/17/18 11:35 Fraction of Inspired Oxygen (FIO2) 45 07/13/18 14:58 Pain Level 0 07/17/18 11:35 Comment 07/17/18 11:35 Intake & Output 07/16/18 07/17/18 07/17/18 23:59 11:59 23:59 Intake Total 480 / 840 Output Total 950 / 3150 1500 / 1500 Balance -470 / -2310 -1500 / -1500 Weight 50.9 kg Intake: Oral 480 / 840 Output: Urine 950 / 3150 1500 / 1500 Other: Urine Color Yellow Yellow Urine Appearance Clear Clear Urine Odor None Normal Voiding Methods Toilet Toilet Completed studies during hospitalization [Text1]: 07/13/18: PORTABLE AP CHEST: Comparison is made with 07/23/16. The heart size is normal. There are underlying emphysematous and fibrotic changes. There are old bilateral rib fractures. No superimposed infiltrate, effusion or pulmonary edema is seen. There is a right shoulder prosthesis. IMPRESSION: No acute abnormality. Date of study: 07/16/2018 Transthoracic Echocardiography M-mode, complete 2D, complete spectral Doppler, and color Doppler *STUDY CONCLUSIONS* Summary: 1. Left ventricle: The cavity size was normal. There was mild focal basal hypertrophy of the septum. Systolic function was hyperdynamic. The estimated ejection fraction was 65-70%. There was dynamic obstruction during Valsalvain the outflow tract, with a peak gradient of 22mm Hg. Wall motion was normal; there were no regional wall motion abnormalities. 2. Left atrium: The atrium was mildly dilated. 3. Right ventricle: The cavity size was normal. Wall thickness was normal. Systolic function was normal. 4. Pulmonary arteries: Pulmonary systolic pressure was increased, in the range of 40mm Hg to 45mm Hg. Labs on day of discharge: Preliminary micro results at discharge 07/13/18 19:41 Blood Culture - Preliminary Blood NO GROWTH 72 HOURS 07/13/18 19:35 Blood Culture - Preliminary Blood NO GROWTH 72 HOURS PENDING SALE TO [facility] Medical History Goals of care, counseling/discussion (Acute) Palliative care patient (Chronic) COPD with acute exacerbation (Acute) Acute and chronic respiratory failure with hypoxia (Acute) Bronchiectasis (Chronic) Chronic adrenal insufficiency (Chronic) Chronic tachycardia (Chronic) Chronic use of steroids (Chronic) Hx of cancer of uterus (Chronic) Hx of cervical cancer (Chronic) Hypoxia (Chronic) IBS (irritable bowel syndrome) (Chronic) Insomnia (Chronic) Lupus nephritis (Chronic) Osteoarthritis (Chronic) RLS (restless legs syndrome) (Chronic) Rheumatoid arthritis (Chronic) ILD (interstitial lung disease) (Suspected) Koch's palsy COPD (chronic obstructive pulmonary disease) Depression GERD (gastroesophageal reflux disease) Hx of breast cancer Hypertension Multiple sclerosis Osteoporosis SLE (systemic lupus erythematosus) Surgical History History of appendectomy (Chronic) History of right shoulder replacement (Resolved) History of surgery on right wrist (Resolved) Personal history of bleeding following renal biopsy (Resolved) Pilonidal cyst (Resolved) S/P hip hemiarthroplasty (Resolved) S/P tonsillectomy (Resolved) Bilateral salpingectomy with oophorectomy Breast, Mastectomy Bilateral Colonoscopy - MAC (06/03/17) Extraction of cataract Fracture, Open Treatment (10/01/14) Hysterectomy, Laproscopic Family History Father Heart disease Stroke Hypertension Parkinson disease Mother Hypertension COPD (chronic obstructive pulmonary disease) Brother No problems noted. Daughter Ulcerative colitis Rheumatoid arthritis Daughter No problems noted. Social History Smoking/Tobacco Use Status: Former Tobacco Use Pack-years: 30 Tobacco: How many years used: 30 Second Hand Exposure: Yes Counseling given: counseling >3 minutes Alcohol Intake: never Drug use: Rarely Substance use type: marijuana Caregiver/Support person: Yes Household members: spouse Housing: house Number of Children: 2 Communication Needs: None Education Level: high school current occupation: retired from [employer] Pets and animals: No What is your relationship status?: How often do you talk on the phone with friends or family?: three or more times per week How often do you get together with friends or relatives?: twice per week Panel score (0-1 are the most socially isolated patients): 2 What type of physical activity do you participate in: none Agree to transfusion: Yes Do you feel safe at home: Yes Do you feel safe in your relationship?: Yes
--- NOTE | 2018-07-17 16:25 | PDOC.HHF2F ---
1. Encounter Date and Reason I certify that STEVEN CARRINGTON was seen by Lorena Davis on 07/17/18 and that I had a [id number] encounter with this patient that meets the physician face to face encounter requirements. 2. Clinical Findings Supporting Skilled Need and Homebound Status I certify that home health services are medically necessary, include either intermittent senior living and/or physical/speech therapy, and that this patient is homebound in that absences from the home require considerable and taxing effort and are infrequent or of short duration, or are attributable to the need to receive medical care. [X] (a) Attached documentation from encounter provides clinical findings supporting skilled need and homebound status (including what assistance patient requires to leave the home). The encounter with the patient was in whole, or in part, for the following medical condition, which is the primary reason for home health care: ACUTE EXACERBATION OF COPD,ACUTE HYPOXIC RESP FAILURE Fci: Needed to monitor medical conditions and ensure medication compliance. Physical Therapy: Needed for regaining independent premorbid level of function, strength and endurance with least restrictive device. Recommended by inpatient physical therapy. OT: Needed to evaluate home situation and make recommendations for devices/equipment as needed. Speech Therapy: Homebound: Unable to leave the home without assistance. 3. Certification and Authentication I certify that I composed the above information based on my clinical judgement relating to this patient's medical condition and, if applicable, clinical findings communicated to me by the NPP or inpatient physician who performed the Home Health Referral. All further orders will be obtained through ____Dr. Lopez (Community Based Physician - PCP)
--- NOTE | 2018-07-17 16:28 | HHF2F_ITS ---
1. Encounter Date and Reason I certify that STEVEN CARRINGTON was seen by Lorena Davis on 07/17/18 and that I had a [id number] encounter with this patient that meets the physician face to face encounter requirements. 2. Clinical Findings Supporting Skilled Need and Homebound Status I certify that home health services are medically necessary, include either intermittent fci and/or physical/speech therapy, and that this patient is homebound in that absences from the home require considerable and taxing effort and are infrequent or of short duration, or are attributable to the need to receive medical care. [X] (a) Attached documentation from encounter provides clinical findings supporting skilled need and homebound status (including what assistance patient requires to leave the home). The encounter with the patient was in whole, or in part, for the following medical condition, which is the primary reason for home health care: ACUTE EXACERBATION OF COPD,ACUTE HYPOXIC RESP FAILURE Correction: Needed to monitor medical conditions and ensure medication compliance. Physical Therapy: Needed for regaining independent premorbid level of function, strength and endurance with least restrictive device. Recommended by inpatient physical therapy. OT: Needed to evaluate home situation and make recommendations for devices/equipment as needed. Speech Therapy: Homebound: Unable to leave the home without assistance. 3. Certification and Authentication I certify that I composed the above information based on my clinical judgement r elating to this patient's medical condition and, if applicable, clinical findings communicated to me by the NPP or inpatient physician who performed the Home Health Referral. All further orders will be obtained through ____Dr. Lopez (Community Based Physician - PCP)
== END 2018-07-17 17:08 | disposition home health service (06) | DRG 189 ==
LOC: ER 16:30 → ICU 17:29 → MS 07-15 10:34
PROVIDERS: Nurse Practitioner; Admitting Provider Internal Medicine; Emergency Provider Physician Assistant; PCP Family Medicine; Visit Provider Internal Medicine
DX: E27.40 Unspecified adrenocortical insufficiency (principal); J47.9 Bronchiectasis, uncomplicated; M32.9 Systemic lupus erythematosus, unspecified; R73.9 Hyperglycemia, unspecified; T38.0X5A Adverse effect of glucocorticoids and synthetic analogues, initial encounter; R00.0 Tachycardia, unspecified; M06.9 Rheumatoid arthritis, unspecified; E87.6 Hypokalemia; K21.9 Gastro-esophageal reflux disease without esophagitis; G35 Multiple sclerosis; I27.20 Pulmonary hypertension, unspecified; I51.7 Cardiomegaly; F41.8 Other specified anxiety disorders; I10 Essential (primary) hypertension; Z51.5 Encounter for palliative care; Z71.3 Dietary counseling and surveillance; Z79.52 Long term (current) use of systemic steroids; Z87.891 Personal history of nicotine dependence; J96.91 Respiratory failure, unspecified with hypoxia; R65.11 Systemic inflammatory response syndrome (SIRS) of non-infectious origin with acute organ dysfunction
CPT/HCPCS: 36410; 36415; 80048; 80053; 87040; 93005; 93306; 94640; 96365; 96368; 96375; 97110; 97162; 97530; 97535; 99232; 99233; 99239; 99255; 99285; 99291; J1650; 71045; 81003; 83036; 83735; 83880; 84439; 84443; 84484; 85025; 93010; J0456; J0696; J2930; J7512; J7613; J7620; J7626

== ENCOUNTER 2018-08-07 01:40 | Outpatient (CLI) | payer MEDICARE, OTHER, SELFPAY ==
[2018-08-07] MEDS: Inhaler, Assist Device 1 EACH MC (13:47)
[2018-08-07] MEDS: Albuterol HFA 18 GM 200 PUFF INH IH (13:47)
--- NOTE | 2018-08-11 15:14 | PFT_ITS ---
PULMONARY FUNCTION TEST REPORT DATE OF SERVICE: August 07, 2018 REQUESTING PROVIDER: Usman Pearce M.D. Spirometry shows severe obstructive airways disease with significant bronchodilator response. Lung volumes show no evidence of restriction. There is very severe hyperinflation and air trapping. Diffusion capacity moderately reduced, which is normal when corrected to alveolar volume. Airways resistance markedly elevated. IMPRESSION: There is severe obstructive airways disease with significant bronchodilator response. This is associated with very severe hyperinflation and air trapping and elevation in airways resistance and moderate diffusion defect. When this study was compared to previous one from 11/21/06, the patient has a stable FVC and an almost 50% decline in FEV1 with an overall 450 cc's decline. Clinical correlation recommended. NOHEMI/ella D/
== END 2018-08-07 02:00 ==
PROVIDERS: PCP Family Medicine; Visit Provider Family Medicine
DX: J44.9 Chronic obstructive pulmonary disease, unspecified (principal); Z87.891 Personal history of nicotine dependence
CPT/HCPCS: 94060; 94729

== ENCOUNTER 2018-09-22 10:00 | Outpatient (CLI) | payer MEDICARE, OTHER, SELFPAY ==
--- NOTE | 2018-09-22 09:45 | DI.RAD_ITS ---
SYMPTOMS/DIAGNOSIS: SEVERE COPD, PERSISTENT INCREASED SHORTNESS OF BREATH, DRY COUGH, R06.02 PA AND LATERAL CHEST: The heart is not enlarged. There appear to be changes of COPD. No focal consolidation seen. No pleural effusion seen. Cardiac size within normal limits. CONCLUSION: No evidence of acute disease.
[2018-09-22 10:50] LABS: Abs Immature Grans 0.24 k/cumm (0.0-0.09); Absolute Basophil Count 0.11 k/cumm (0.0-0.2); Absolute Eosinophil Count 0.28 k/cumm (0.0-0.7); Absolute Lymphocyte Count 3.17 k/cumm (1.2-3.4); Absolute Monocyte Count 1.69 k/cumm (0.11-0.7); Basophils % 0.8; Eosinophils % 2.1; HCT 43.8 % (36.0-46.0); HGB 13.8 g/dL (12.0-15.5); Immature Grans % 1.8; Lymphocytes % 23.9; Mean Corp. HGB Concentration 31.5 g/dL (32.0-36.0); Mean Corpuscular Hemoglobin 27.2 pg (27.0-33.0); Mean Corpuscular Volume 86.4 fL (80-95); Mean Platelet Volume 10.2 fL (8.0-11.0); Monocytes % 12.7; Neutrophils % 58.7; Platelet Count 407 x1000/uL (130-400); RBC 5.07 m/cumm (4.00-5.20); RBC Distribution Width 16.2 % (11.7-14.6); White Blood Cell Count 13.27 k/cumm (4.4-10.8)
[2018-09-22 11:06] LABS: Absolute Neutrophil Count 7.79 k/cumm (1.2-6.7)
[2018-09-22 11:19] LABS: Anisocytosis 1+; Diff Comment Manual Differential; Polychromasia Present
[2018-09-22 11:59] LABS: ALT 17 U/L (12-78); AST 11 U/L (15-37); Albumin 3.4 g/dL (3.4-5.0); Alkaline Phosphatase 59 U/L (46-116); Anion Gap 12.1 mmol/L (3-11); BUN 16 mg/dL (7-18); Bilirubin, Total 0.4 mg/dL (0.2-1.0); CO2 25.9 mmol/L (21.0-32.0); CREATININE 0.56 mg/dL (0.55-1.02); Calcium 9.5 mg/dL (8.5-10.1); Chloride 103 mmol/L (98-107); Glucose 110 mg/dL (70-100); Magnesium 1.9 mg/dL (1.8-2.4); Potassium 3.6 mmol/L (3.5-5.1); Sodium 141 mmol/L (136-145); TSH 2.23 uIU/mL (0.358-3.74); Total Protein 6.7 g/dL (6.4-8.2)
== END 2018-09-22 10:20 ==
PROVIDERS: PCP Family Medicine; Visit Provider Family Medicine
DX: R06.02 Shortness of breath (principal); E83.42 Hypomagnesemia; R00.0 Tachycardia, unspecified; J44.9 Chronic obstructive pulmonary disease, unspecified
CPT/HCPCS: 36415; 80053; 71046; 83735; 84443; 85025

== ENCOUNTER 2018-10-02 13:07 | Outpatient (REF) | payer MEDICARE, OTHER, SELFPAY ==
[2018-10-03 10:55] LABS: Result Negative; Specimen Description Feces
[2018-10-03 10:56] LABS: Campylobacter PCR SEE COMMENTS; Salmonella PCR SEE COMMENTS; Shiga Toxin PCR SEE COMMENTS; Shigella/Enteroinvasive Ecoli SEE COMMENTS
== END 2018-10-02 13:27 ==
LOC: LBO 13:07
PROVIDERS: PCP Family Medicine; Visit Provider Family Medicine
DX: R19.7 Diarrhea, unspecified (principal)
CPT/HCPCS: 87505; 87177; 87798

== ENCOUNTER 2019-01-21 11:05 | Inpatient (IN) | payer MEDICARE, OTHER, SELFPAY ==
[2019-01-21] VITALS (51 sets, daily range): BP systolic 148–180; BP diastolic 71–119; PULSE 120–147; RESP 16–32; TEMP 36.6–37.1; O2SAT 90–95
--- NOTE | 2019-01-21 11:29 | W.ED.GENAD ---
Discharge Plan Disposition Patient Disposition: [facility] INPATIENT Condition: Fair Discharge Details Chief Complaint: Abd Prob Clinical Impression: Colitis Admit Date/Time: 01/21/19 16:03 Admit Provider: Lester Meadows Attending Provider: Lester Meadows Primary Care Provider: Katina Lopez ED Provider: Amanda Dill Discharge Data Discharge Date/Time-TO BE ENTERED AT DEPARTURE: 01/21/19 16:50 Medical Decision Making Very pleasant 73-year-old woman in no apparent distress presents accompanied by her for complaints of fatigue, weight loss and persistent chronic diarrhea. Patient has been evaluated for chronic diarrhea complaints including a colonoscopy this year which was unremarkable. Patient reports diarrhea has persisted however she reports in the last week feeling increasingly weak and fatigued. She denies any obvious complaints of pain at this time to her chest or her abdomen. Patient reports decreased p.o. intake, trying to supplement with boost which she reports goes right through her. Patient is feeling dehydrated at this time and does report decrease in urine output. Denies measured fever or chills. Patient is a history of chronic COPD. Retired smoker. Does report history of chronic tachycardia. On daily steroids p.o. as well as inhaled. Initial labs ordered, IV fluid ordered. IV placed by RN. Patient's initial EKG has a rate of 136 rhythm sinus tachycardia. A shortened AL interval is noted with no obvious WPW. Nonspecific ST changes noted seemingly rate related. Reviewed with my Dr. Foley. Patient's CT scans revealed question of a left lower lobe pneumonia versus atelectasis. Patient has no clinical cough or fever however is on chronic prednisone. Patient also on CT had noted colitis in the descending and sigmoid colon which is consistent with patient's left lower quadrant pain. Patient has no evidence of leukocytosis at this time. Labs are quite reassuring. Troponin negative. Reevaluation of patient reveals persistent left lower quadrant abdominal pain. Patient has some improvement in her tachycardia. Discussed with the patient her labs in conjunction to her CT scan evaluation. Patient does not feel well enough for discharge home at this time. She feels she has had significant difficulty tolerating p.o. fluids and food and feels she is more appropriate to stay in the hospital temporarily. Given patient's colitis noted on CT scan today I do feel this is appropriate. Discussed with the hospitalist who agrees to admit this patient for further management and evaluation HPI General Date/Time Provider Initiated Documentation: 01/21/19 11:07. HPI Narrative: 73-year-old patient presents to the ER today complaining of fatigue and weight loss. Persistent chronic diarrhea is reported. Patient reports everything she tries to take by mouth goes right through her. Patient reports decreased appetite. Denies active vomiting. Reports significant weight loss in the last several months. Now weighing approximately 95 pounds. Patient denies fever, chills. Patient denies active chest or abdominal pain. Patient denies headache or dizziness. No feeling of syncope. Has had a colonoscopy this year which was unremarkable for acute findings or causes of her diarrhea. Patient reports onset of decrease in appetite in the last week. Nothing seemingly improves or relieves her appetite change or fatigue. Patient does report decreased urine output as she has had decreased oral intake. Reports loose stools are a light caramel color without associated water, blood or mucus. History of COPD for which she is compliant with her medications and does not require daily oxygen is followed by local children's book author. Patient denies significant change in her cough or difficulty breathing although does admit to baseline shortness of breath with exertion. Patient does report recent viral illness consistent with cough and congestion improving at this time. Related Data Home Medications Medication Instructions Recorded Confirmed calcium carbonate-vitamin D3 1 ea PO DAILY #90 tab-cap 07/16/16 01/21/19 budesonide 0.5 mg INHALATION BID 07/13/18 01/21/19 pantoprazole 40 mg tablet,delayed 40 mg PO DAILY@0730 #90 tab 08/14/18 01/21/19 release leflunomide 10 mg tablet 10 mg PO DAILY #90 tab-cap 09/22/18 01/21/19 albuterol sulfate 90 mcg/actuation 2 puff INHALATION Q4H PRN PRN #18 10/30/18 01/21/19 aerosol inhaler gm umeclidinium 62.5 mcg/actuation 1 inh INHALATION DAILY #1 inhaler 10/30/18 01/21/19 blister powder for inhalation venlafaxine 150 mg 150 mg PO DAILY #90 cap 11/04/18 01/21/19 capsule,extended release 24 hr venlafaxine 75 mg capsule,extended 75 mg PO DAILY #90 cap 11/04/18 01/21/19 release 24 hr enalapril maleate 20 mg tablet 10 - 20 mg PO BID #45 tab-cap 12/23/18 01/21/19 clonazepam 1 mg tablet 1 mg PO QPM PRN #30 tab-cap 12/25/18 01/21/19 prednisone 5 mg tablet 5 - 10 mg PO DAILY #90 tab 12/25/18 01/21/19 amlodipine 10 mg tablet 10 mg PO DAILY #90 tab-cap 01/07/19 01/21/19 Previous Rx's Medication Instructions Recorded pantoprazole 40 mg tablet,delayed 40 mg PO DAILY@0730 #90 tab 08/14/18 release leflunomide 10 mg tablet 10 mg PO DAILY #90 tab-cap 09/22/18 albuterol sulfate 90 mcg/actuation 2 puff INHALATION Q4H PRN PRN #18 10/30/18 aerosol inhaler gm umeclidinium 62.5 mcg/actuation 1 inh INHALATION DAILY #1 inhaler 10/30/18 blister powder for inhalation venlafaxine 150 mg 150 mg PO DAILY #90 cap 11/04/18 capsule,extended release 24 hr venlafaxine 75 mg capsule,extended 75 mg PO DAILY #90 cap 11/04/18 release 24 hr enalapril maleate 20 mg tablet 10 - 20 mg PO BID #45 tab-cap 12/23/18 clonazepam 1 mg tablet 1 mg PO QPM PRN #30 tab-cap 12/25/18 prednisone 5 mg tablet 5 - 10 mg PO DAILY #90 tab 12/25/18 amlodipine 10 mg tablet 10 mg PO DAILY #90 tab-cap 01/07/19 Allergies Allergy/AdvReac Type Severity Reaction Status Date / Time glatiramer (copolymer 1) Allergy Severe Anaphylaxsi Verified 10/30/18 10:29 [glatiramer] s minocycline Allergy Intermediate BLUE Verified 10/30/18 10:29 NAILS; FACIAL RASH Penicillins Allergy Intermediate HIVES;PEDAL Verified 10/30/18 10:29 EDEMA levofloxacin AdvReac Intermediate TENDONITIS Verified 10/30/18 10:29 hydroxychloroquine AdvReac Verified 10/30/18 10:29 [From Plaquenil] morphine AdvReac Verified 10/30/18 10:29 General Stated Complaint: Abd Prob [place]: 2 Review of Systems Constitutional Constitutional: Denies chills, Denies excessive sweating, Denies fever(s), Denies headache(s), Reports lethargy, Denies night sweats, Reports poor appetite and Reports weakness ENT Ears, Nose, Mouth, and Throat: Denies headache(s) Cardiovascular Cardiovascular: Denies chest pain, Denies chest pain with activity, Denies diaphoresis, Denies syncope, Reports rapid heart rate, Denies palpitations and Reports dyspnea on exertion Respiratory Respiratory: Reports cough and Reports dyspnea on exertion Gastrointestinal Gastrointestinal: Denies abdominal pain, Denies bloating, Reports diarrhea, Reports loose stools, Denies nausea and Denies vomiting Genitourinary Genitourinary: Denies hematuria, Denies urinary frequency and Denies urinary urgency Neurologic Neurologic: Denies syncope, Denies headache(s) and Reports weakness Endocrine Endocrine: Denies excessive sweating and Denies palpitations [facility] Medical History Acute and chronic respiratory failure with hypoxia (Acute) Koch's palsy Bronchiectasis (Chronic) Chronic adrenal insufficiency (Chronic) Chronic tachycardia (Chronic) Chronic use of steroids (Chronic) COPD (chronic obstructive pulmonary disease) COPD with acute exacerbation (Acute) Depression GERD (gastroesophageal reflux disease) Goals of care, counseling/discussion (Acute) Hx of breast cancer s/p B mastectomies and tamoxifen. Did not require chemo or XRT. Hx of cancer of uterus (Chronic) Hx of cervical cancer (Chronic) Hypertension Hypoxia (Chronic) IBS (irritable bowel syndrome) (Chronic) ILD (interstitial lung disease) (Suspected) Insomnia (Chronic) Lupus nephritis (Chronic) Multiple sclerosis Osteoarthritis (Chronic) Osteoporosis Palliative care patient (Chronic) Rheumatoid arthritis (Chronic) RLS (restless legs syndrome) (Chronic) SLE (systemic lupus erythematosus) Social History Smoking/Tobacco Use Status: Former Tobacco Use Pack-years: 30 Tobacco: How many years used: 30 Second Hand Exposure: Yes Counseling given: counseling >3 minutes Alcohol Intake: never Drug use: Rarely Substance use type: marijuana Caregiver/Support person: Yes Household members: spouse Housing: house Number of Children: 2 Communication Needs: None Education Level: high school current occupation: retired from [employer] Pets and animals: No What is your relationship status?: How often do you talk on the phone with friends or family?: three or more times per week How often do you get together with friends or relatives?: twice per week Panel score (0-1 are the most socially isolated patients): 2 What type of physical activity do you participate in: none Agree to transfusion: Yes Do you feel safe at home: Yes Do you feel safe in your relationship?: Yes Exam Narrative Exam Narrative: CONST: Healthy appearing patient, in no acute distress. Alert and alert. HENMT: Head nomocephalic, normal to inspection. Atraumatic. Hearing grossly normal. Dry mucous membranes EYES: General normal appearance. Alignment normal. Eyelids normal. Conjunctiva normal. NECK: Normal visual inspection. FROM. Trachea midline. No Midline tenderness. CHEST: Normal insepection of the chest. RESP: Normal respiratory effort. Speaking full sentences. No cough. No audible wheezing. No retractions. CARDIO: No JVD. Normal rate and rhythm Abdomen; no peritoneal signs, rebound or guarding. Moderate left lower quadrant tenderness with palpation, wincing with palpation of the left lower quadrant Back; No CVA tenderness bilaterally, no spinal tenderness MUSCULOSKELETAL: Normal Gait. FROM of all extremities. SKIN: Normal. Dry. No rashes. NEURO: Alert and awake. Speech clear. PSYCH: Normal affect. Cooperative. Course Vital Signs Vital signs: Vital Signs Temperature 36.6 C 01/21/19 11:16 Pulse 138 H 01/21/19 11:16 Respiratory Rate 26 H 01/21/19 11:16 Blood Pressure 176/119 H 01/21/19 11:16 Pulse Oximetry 93 L 01/21/19 11:16 Temperature 36.6 C 01/21/19 11:16 Temperature Source Skin 01/21/19 11:16 Pulse 138 H 01/21/19 11:16 Respiratory Rate 26 H 01/21/19 11:16 Blood Pressure 176/119 H 01/21/19 11:16 Blood Pressure Position Supine 01/21/19 11:16 Pulse Oximetry 93 L 01/21/19 11:16 Oxygen Delivery Method Room Air 01/21/19 11:16 Oxygen Flow Rate 0 01/21/19 11:16
[2019-01-21] MEDS: Normal Saline 1,000 ML 1000 ML IV (11:35)
[2019-01-21 11:54] LABS: Abs Immature Grans 0.13 k/cumm (0.0-0.09); Absolute Basophil Count 0.06 k/cumm (0.0-0.2); Absolute Eosinophil Count 0.17 k/cumm (0.0-0.7); Absolute Neutrophil Count 9.68 k/cumm (1.2-6.7); Basophils % 0.5; Eosinophils % 1.3; HCT 39.7 % (36.0-46.0); HGB 12.2 g/dL (12.0-15.5); Lymphocytes % 11.6; Mean Corp. HGB Concentration 30.7 g/dL (32.0-36.0); Mean Corpuscular Hemoglobin 24.5 pg (27.0-33.0); Mean Corpuscular Volume 79.9 fL (80-95); Mean Platelet Volume 10.5 fL (8.0-11.0); Monocytes % 9.9; Neutrophils % 75.7; Platelet Count 465 x1000/uL (130-400); RBC 4.97 m/cumm (4.00-5.20); RBC Distribution Width 15.6 % (11.7-14.6); White Blood Cell Count 12.79 k/cumm (4.4-10.8)
[2019-01-21 11:55] LABS: Absolute Lymphocyte Count 1.48 k/cumm (1.2-3.4); Absolute Monocyte Count 1.27 k/cumm (0.11-0.7)
[2019-01-21 11:56] LABS: Lipase 104 U/L (73-393)
[2019-01-21 12:02] LABS: ALT 29 U/L (14-59); AST 19 U/L (15-37); Albumin 2.9 g/dL (3.4-5.0); Alkaline Phosphatase 100 U/L (46-116); Anion Gap 11.1 mmol/L (3-11); BUN 17 mg/dL (7-18); Bilirubin, Total 0.4 mg/dL (0.2-1.0); CO2 27.9 mmol/L (21.0-32.0); CREATININE 0.66 mg/dL (0.55-1.02); Calcium 9.3 mg/dL (8.5-10.1); Chloride 102 mmol/L (98-107); Glucose 148 mg/dL (70-100); Potassium 3.4 mmol/L (3.5-5.1); Sodium 141 mmol/L (136-145); Total Protein 7.8 g/dL (6.4-8.2)
[2019-01-21 12:05] LABS: Troponin I < 0.05 ng/mL (0.00-0.06)
[2019-01-21 12:09] LABS: INR 1.1 (0.9-1.1); PTT Activated 24.8 sec (21.0-31.4); Prothrombin Time 10.8 sec (9.3-11.0)
--- NOTE | 2019-01-21 12:27 | NUR.NOTE ---
pt ambulated 5 steps tp the BR and became SOB Nursing Note:
[2019-01-21 12:44] LABS: Bilirubin Small (Negative); Blood Small (Negative); Clarity Clear (Clear); Glucose Negative (Negative); Ketones Trace mg/dL (Negative); Leukocyte Esterase Negative (Negative); Nitrite Negative (Negative); Specific Gravity 1.015 (1.005-1.025); Urobilinogen 0.2 EU/dL (Up TO 0.2)
[2019-01-21 12:53] LABS: Bacteria Few HPF (Negative); C & S Indicated? No; Casts Negative LPF (Negative); Crystals Negative HPF (Negative); Epithelial Cells Rare HPF (Negative); Mucus Moderate (Negative); Other Cells Rare Renal (Negative); RBC 0-2 (0-2); WBC 0-2 HPF (0-5)
[2019-01-21] MEDS: Omnipaque 350 MG/ML 100 ML BTL IJ (14:02)
[2019-01-21] MEDS: Normal Saline Flush 10 ML SYR IVP ×3 (14:03→21:35)
--- NOTE | 2019-01-21 14:06 | DI.CT_ITS ---
EXAM: CT CHEST PE ABD PELVIS W CLINICAL HISTORY: SOB, fatigue, LLQ pain, mid abdominal pain x 1 week. TECHNIQUE: Imaging Protocol: Axial computed tomography images with coronal and sagittal reformatted images were created and reviewed CONTRAST MATERIAL: Intravenous: Omnipaque 350 Contrast volume:100 ml contrast route:IV - Oral: no COMPARISON: CHEST FOR PULMONARY EMBOLUS from 05/27/2016 XR CHEST 2V PA AND LATERAL from 09/22/2018 FINDINGS: ABDOMEN AND PELVIS: Liver: The liver is normal in size. There is an area of decreased attenuation adjacent to the ligame ntum teres. There is no distortion of the hepatic architecture in this region. This likely reflects focal fatty infiltration. There are tiny hypodensities seen in the liver that are too small for fur ther characterization. They likely reflect small cysts. No suspicious hepatic mass is present. The portal, superior mesenteric, and splenic veins are patent. Gallbladder: Unremarkable. No biliary ductal dilatation. Pancreas: Unremarkable Spleen: Unremarkable. Adrenal glands: Unremarkable. Kidneys: There are multiple hypodense nodules within the kidneys bilaterally. They are too small for further characterization. They likely reflect small cysts. No suspicious solid renal mass is prese nt. There is no evidence of obstructive uropathy. Urinary bladder: Unremarkable. Reproductive organs: Unremarkable as visualized. Abdominal aorta: No aneurysm. Atherosclerosis. Lymph nodes: Unremarkable. Bowel: There is thickening of the wall of the distal sigmoid colon. No pericolonic inflammatory stephen ges are present. This may be due to underdistention. However, infectious or inflammatory colitis ca nnot be excluded. There is also bowel wall thickening seen in the descending colon. There does appe ar to be mild increased attenuation in the surrounding fat. Colitis is suspected. There is no evide nce of acute appendicitis. Other: No evidence of ascites or free air. Bones: Osteopenia. Intramedullary nilay and screw in the proximal right femur. Degenerative changes i n the spine. There is air seen in the epidural space posterior to the L4-L5 disc space. This may be secondary to the degenerative changes. CHEST: Aorta: Atherosclerosis no evidence of aneurysm or dissection. Pulmonary arteries: No evidence of pulmonary emboli Heart: No cardiomegaly. No pericardial effusion. Coronary artery calcifications. Lymph nodes: No adenopathy. Parenchyma: Scarring or atelectasis in the right middle lobe and lingula. Pulmonary fibrosis. Opaci ty in the left lower lobe. This may represent atelectasis or pneumonia. Tracheobronchial tree: Unremarkable. Bones: Compression deformities of the T3 and T6 vertebral bodies. These are old. Degenerative tariq es are seen in the spine. IMPRESSION: 1. Findings suspicious for inflammatory or infectious colitis involving the descending and sigmoid co elder. 2. No evidence of pulmonary embolus, thoracic aortic dissection, or aneurysm 3. Opacity in the left lower lobe. This may represent atelectasis or pneumonia. DATA REPOSITORY: All CT scans at this facility are submitted to the National Radiology Data Registry (NRDR) Dose Index Registry (DIR) with the [employer] (A[employer]). RADIATION OPTIMIZATION: All CT scans at this facility use at least one of these dose optimization te chniques: automated exposure control; mA and/or kV adjustment per patient size (includes targeted exa ms where dose is matched to clinical indication); or iterative reconstruction.
[2019-01-21 14:36] LABS: Troponin I < 0.05 ng/mL (0.00-0.06)
--- NOTE | 2019-01-21 15:00 | NUR.NOTE ---
Nursing Note: pt able to tolerate a full cup of apple juice.
--- NOTE | 2019-01-21 18:02 | HPE_ITS ---
Date of service: 01/21/19 Time of Service: 18:02 Assessment and Plan Assessment and plan (1) Colitis: Status: Acute Assessment and plan: Evidence of an acute colitis, overlying a somewhat chronic appearing diarrhea of unknown etiology. Etiology for the patient's colitis is unclear at this time. -Check C. difficile, stool cultures, and fecal leukocytes - differential at this time includes infectious vs. inflammatory vs. ischemic. -Patient has a history of 'adrenal insufficiency' as per review of her prior records. Please note that she is on minimal dose daily steroids, and the use of higher dose steroids are risky given the uncertain nature of her colitis. However, given this diagnosis we are at this point somewhat forced to initiate stress dose steroids. Given that she is on minimal dose prednisone will initiate very low-dose stress dose steroids, with plans for a very short taper. ?Would generally hold off on antibiotic therapy, but given that there may be findings consistent with pneumonia the patient certainly warrants antibiotic therapy, and since she is being initiated on this will include intra-abdominal coverage as well. Allergy to penicillin and fluoroquinolones noted. Start ceftriaxone and metronidazole which should provide adequate coverage for pneumonia and intra-abdominal pathogens. Patient was also vomiting prior to her admission making aspiration pneumonia a possibility, and with metronidazole providing anaerobic coverage. (2) COPD with acute exacerbation: Status: Acute Assessment and plan: Appears quiescent at this time. Continue inhaler therapy, duo nebs as needed. (3) Systemic lupus erythematosus: Status: Acute Assessment and plan: History of SLE as well as RA. Patient on DMARD therapy with leflunomide. Also on low-dose daily prednisone. (4) GERD (gastroesophageal reflux disease): Status: Chronic Assessment and plan: Continue PPI therapy. (5) Depressive disorder: Status: Acute Assessment and plan: Continue SNRI, low-dose benzo. The patient is on chronic benzodiazepine therapy with clonazepam, which needs to be continued at this time to avoid risk of withdrawal. (6) DVT prophylaxis: Status: Acute Assessment and plan: SC Lovenox. (7) Advanced directives, counseling/discussion: Status: Acute Assessment and plan: DNR/DNI per conversation with patient. History of Present Illness History of Present Illness Chief Complaint: Fatigue, diarrhea, vomiting Narrative: Very pleasant 73-year-old woman with past medical history significant for chronic diarrhea, being admitted from [facility] emergency department on 01/21 with a diagnosis of colitis. Mrs. Quincy has a past medical history significant for severe COPD with prior hospitalizations, last in June 2018. Her other medical history includes HTN, MS, GERD, anxiety, depression, and osteoporosis. She also has a diagnosis of SLE and RA, on chronic DMARD therapy and daily prednisone. She has a reported chronic diarrhea, ongoing for approximately 2 years, for which she has undergone a colonoscopy in the May 2017, reportedly largely benign. Her diarrhea reportedly worsened over this past summer, culminating in weight loss and decreased oral intake. Over the course of the last 4 to 5 days the patient has had significant worsening in her oral intake, with continuous nausea and vomiting and inability to keep food down. She does however report that her last bout of diarrhea was approximately 4 days ago, and that she has not moved her bowels since that time. Work-up in the ED was significant for a mild leukocytosis that appears to be a chronic finding, mild thrombocytosis, and normal hemoglobin, with an essentially normal comprehensive metabolic panel. Notable exceptions to this are a low albumin at 2.9, and a mild and chronic appearing hypokalemia with a potassium of 3.4. Her urinalysis did not show any evidence of infection. Chest x-ray showed no evidence of acute pathology, but CT of the chest abdomen and pelvis obtained in the ED showed an opacity in the left lower lobe suspicious for either atelectasis or pneumonia, as well as findings suspicious for an inflammatory or infectious colitis involving the descending and sigmoid colon. Of note the patient also complains of left sided abdominal pain. Given the patient's findings and inability to tolerate oral intake she was referred for admission for further evaluation and treatment. Review of Systems Review of Systems ROS Unobtainable: All systems reviewed & are unremarkable except as noted in HPI and below [facility] Medical History Acute and chronic respiratory failure with hypoxia (Acute) Koch's palsy Bronchiectasis (Chronic) Chronic adrenal insufficiency (Chronic) Chronic tachycardia (Chronic) Chronic use of steroids (Chronic) COPD (chronic obstructive pulmonary disease) COPD with acute exacerbation (Acute) Depression GERD (gastroesophageal reflux disease) Goals of care, counseling/discussion (Acute) Hx of breast cancer s/p B mastectomies and tamoxifen. Did not require chemo or XRT. Hx of cancer of uterus (Chronic) Hx of cervical cancer (Chronic) Hypertension Hypoxia (Chronic) IBS (irritable bowel syndrome) (Chronic) ILD (interstitial lung disease) (Suspected) Insomnia (Chronic) Lupus nephritis (Chronic) Multiple sclerosis Osteoarthritis (Chronic) Osteoporosis Palliative care patient (Chronic) Rheumatoid arthritis (Chronic) RLS (restless legs syndrome) (Chronic) SLE (systemic lupus erythematosus) Social History Smoking/Tobacco Use Status: Former Tobacco Use Pack-years: 30 Tobacco: How many years used: 30 Second Hand Exposure: Yes Counseling given: counseling >3 minutes Alcohol Intake: never Drug use: Rarely Substance use type: marijuana Caregiver/Support person: Yes Household members: spouse Housing: house Number of Children: 2 Communication Needs: None Education Level: high school current occupation: retired from [employer] Pets and animals: No What is your relationship status?: How often do you talk on the phone with friends or family?: three or more times per week How often do you get together with friends or relatives?: twice per week Panel score (0-1 are the most socially isolated patients): 2 What type of physical activity do you participate in: none Agree to transfusion: Yes Do you feel safe at home: Yes Do you feel safe in your relationship?: Yes Meds Home Medications and Allergies Home Medications Medication Instructions Recorded Confirmed Type calcium carbonate-vitamin D3 1 ea PO DAILY #90 tab-cap 07/16/16 01/21/19 History budesonide 0.5 mg INHALATION BID 07/13/18 01/21/19 History pantoprazole 40 mg tablet,delayed 40 mg PO DAILY@0730 #90 tab 08/14/18 01/21/19 Rx release leflunomide 10 mg tablet 10 mg PO DAILY #90 tab-cap 09/22/18 01/21/19 Rx albuterol sulfate 90 mcg/actuation 2 puff INHALATION Q4H PRN PRN #18 10/30/18 01/21/19 Rx aerosol inhaler gm umeclidinium 62.5 mcg/actuation 1 inh INHALATION DAILY #1 inhaler 10/30/18 01/21/19 Rx blister powder for inhalation venlafaxine 150 mg 150 mg PO DAILY #90 cap 11/04/18 01/21/19 Rx capsule,extended release 24 hr venlafaxine 75 mg capsule,extended 75 mg PO DAILY #90 cap 11/04/18 01/21/19 Rx release 24 hr enalapril maleate 20 mg tablet 10 - 20 mg PO BID #45 tab-cap 12/23/18 01/21/19 Rx clonazepam 1 mg tablet 1 mg PO QPM PRN #30 tab-cap 12/25/18 01/21/19 Rx prednisone 5 mg tablet 5 - 10 mg PO DAILY #90 tab 12/25/18 01/21/19 Rx amlodipine 10 mg tablet 10 mg PO DAILY #90 tab-cap 01/07/19 01/21/19 Rx Allergies Allergy/AdvReac Type Severity Reaction Status Date / Time glatiramer (copolymer 1) Allergy Severe Anaphylaxsi Verified 10/30/18 10:29 [glatiramer] s minocycline Allergy Intermediate BLUE Verified 10/30/18 10:29 NAILS; FACIAL RASH Penicillins Allergy Intermediate HIVES;PEDAL Verified 10/30/18 10:29 EDEMA levofloxacin AdvReac Intermediate TENDONITIS Verified 10/30/18 10:29 hydroxychloroquine AdvReac Verified 10/30/18 10:29 [From Plaquenil] morphine AdvReac Verified 10/30/18 10:29 Exam Narrative Exam Narrative: General: Patient appears chronically ill but not toxic, thin and slightly cachectic in appearance, AAOX3, NAD Neck: Supple CV: Regular, tachycardic, S1S2, No rubs, murmurs, or gallops. Pulmonary: Clear to auscultation bilaterally, no crackles, wheezing, or rhonchi Abdomen: + Bowel Sounds, soft, nondistended, mild left lower and left lateral abdominal pain on palpation without rebound. No evidence of an acute abdomen. Vascular: No lower extremity edema Neurologic: CN II-XII grossly intact. No focal deficits. Psych: Normal mood and affect. Results Labs Result diagrams: 01/21/19 11:37 01/21/19 11:37 Labs: Laboratory Results - last 24 hr 01/21/19 01/21/19 01/21/19 11:37 11:37 11:37 WBC 12.79 H RBC 4.97 Hgb 12.2 Hct 39.7 MCV 79.9 L MCH 24.5 L MCHC 30.7 L RDW 15.6 H Plt Count 465 H MPV 10.5 Immature Gran % 1.0 Neutrophils % 75.7 Lymphocytes % 11.6 Monocytes % 9.9 Eosinophils % 1.3 Basophils % 0.5 Absolute Neutrophils 9.68 H Absolute Lymphocytes 1.48 Absolute Monocytes 1.27 H Absolute Eosinophils 0.17 Absolute Basophils 0.06 PT INR APTT Sodium 141 Potassium 3.4 L Chloride 102 Carbon Dioxide 27.9 Anion Gap 11.1 H BUN 17 Creatinine 0.66 Estimated GFR/1.73 m2 >= 60.00 Glucose 148 H Calcium 9.3 Total Bilirubin 0.4 AST 19 ALT 29 Alkaline Phosphatase 100 Troponin I < 0.05 Total Protein 7.8 Albumin 2.9 L Lipase 104 Urine Color Urine Clarity Urine pH Ur Specific Stickney Urine Protein Urine Ketones Urine Blood Urine Nitrite Urine Bilirubin Urine Urobilinogen Ur Leukocyte Esterase Urine RBC Urine WBC Ur Epithelial Cells Urine Crystals Urine Bacteria Urine Casts Urine Mucus Urine Other Ur Culture Indicated? Urine Glucose 01/21/19 01/21/19 01/21/19 11:37 12:26 14:15 WBC RBC Hgb Hct MCV MCH MCHC RDW Plt Count MPV Immature Gran % Neutrophils % Lymphocytes % Monocytes % Eosinophils % Basophils % Absolute Neutrophils Absolute Lymphocytes Absolute Monocytes Absolute Eosinophils Absolute Basophils PT 10.8 INR 1.1 APTT 24.8 Sodium Potassium Chloride Carbon Dioxide Anion Gap BUN Creatinine Estimated GFR/1.73 m2 Glucose Calcium Total Bilirubin AST ALT Alkaline Phosphatase Troponin I < 0.05 Total Protein Albumin Lipase Urine Color Yellow Urine Clarity Clear Urine pH 6.0 Ur Specific Stickney 1.015 Urine Protein Trace H Urine Ketones Trace H Urine Blood Small H Urine Nitrite Negative Urine Bilirubin Small H Urine Urobilinogen 0.2 Ur Leukocyte Esterase Negative Urine RBC 0-2 Urine WBC 0-2 Ur Epithelial Cells Rare Urine Crystals Negative Urine Bacteria Few Urine Casts Negative Urine Mucus Moderate Urine Other Rare renal Ur Culture Indicated? No Urine Glucose Negative Last Vital Signs Temp 37.1 C 01/21/19 17:13 Pulse 126 H 01/21/19 17:13 Resp 32 H 01/21/19 17:13 BP 171/117 H 01/21/19 17:13 Pulse Ox 95 01/21/19 17:13
[2019-01-21] MEDS: Normal Saline 1,000 ML 125 ML IV (18:06)
[2019-01-21] MEDS: cefTRIAXone 2 GM/50 ML BAG IVPB (18:42)
[2019-01-21] MEDS: Enoxaparin 40 MG/0.4 ML SYR SC (18:42)
[2019-01-21] MEDS: Hydrocortisone SOD SUC. 100 MG VIAL 25 MG IVP (18:42)
[2019-01-21] MEDS: Potassium Chloride 20 MEQ TABCR 40 MEQ PO (18:50)
--- NOTE | 2019-01-21 19:17 | NUR.NOTE ---
Nursing Note: Pt to MS floor from ER at 1700. Daughter at bedside. Pt ambulated with standby from stretcher to bed; SOB with exertion. Denies chest pain and pressure. A&Ox3. VS- BP 171/100, R 32, P 126. and CCRN aware. Pt oriented to MS floor, call fry, etc. Call fry within reach. RN will continue to monitor.
[2019-01-21] MEDS: Budesonide 0.5 MG/2 ML UPD VIAL IH (20:23)
[2019-01-21] MEDS: metroNIDAZOLE 500 MG/100 ML BAG 100 MG IVPB (20:23)
[2019-01-21] MEDS: Enalapril 5 MG TAB PO (21:35)
[2019-01-21] MEDS: clonazePAM 1 MG TAB PO (21:45)
[2019-01-22] MEDS: Normal Saline Flush 10 ML SYR IVP ×2 (02:17→09:28)
[2019-01-22] MEDS: Hydrocortisone SOD SUC. 100 MG VIAL 25 MG IVP ×3 (02:17→17:40)
[2019-01-22] MEDS: Normal Saline 1,000 ML 125 ML IV ×2 (02:21→14:27)
[2019-01-22] MEDS: metroNIDAZOLE 500 MG/100 ML BAG 100 MG IVPB ×3 (04:18→20:05)
[2019-01-22 04:37] VITALS: BP 167/76; PULSE 95; RESP 24; TEMP 35.3; O2SAT 96
[2019-01-22 04:42] VITALS: O2SAT 96
[2019-01-22 07:07] LABS: Abs Immature Grans 0.07 k/cumm (0.0-0.09); Absolute Basophil Count 0.03 k/cumm (0.0-0.2); Absolute Eosinophil Count 0.01 k/cumm (0.0-0.7); Absolute Lymphocyte Count 0.69 k/cumm (1.2-3.4); Absolute Neutrophil Count 5.03 k/cumm (1.2-6.7); Basophils % 0.5; Eosinophils % 0.2; HCT 36.6 % (36.0-46.0); HGB 11.2 g/dL (12.0-15.5); Immature Grans % 1.1; Lymphocytes % 11.3; Mean Corp. HGB Concentration 30.6 g/dL (32.0-36.0); Mean Corpuscular Hemoglobin 24.7 pg (27.0-33.0); Mean Corpuscular Volume 80.6 fL (80-95); Mean Platelet Volume 10.7 fL (8.0-11.0); Monocytes % 4.9; Platelet Count 311 x1000/uL (130-400); RBC 4.54 m/cumm (4.00-5.20); RBC Distribution Width 15.6 % (11.7-14.6); White Blood Cell Count 6.13 k/cumm (4.4-10.8)
[2019-01-22 07:10] VITALS: BP 146/84; PULSE 100; RESP 18; TEMP 36.4; O2SAT 96
[2019-01-22 07:28] LABS: Anion Gap 11.6 mmol/L (3-11); BUN 7 mg/dL (7-18); CO2 25.4 mmol/L (21.0-32.0); CREATININE 0.48 mg/dL (0.55-1.02); Chloride 107 mmol/L (98-107); Glucose 109 mg/dL (70-100); Magnesium 1.6 mg/dL (1.8-2.4); Potassium 3.5 mmol/L (3.5-5.1); Sodium 144 mmol/L (136-145)
[2019-01-22] MEDS: predniSONE 5 MG TAB PO (09:26)
[2019-01-22] MEDS: Pantoprazole 40 MG TABCR PO (09:26)
[2019-01-22] MEDS: Venlafaxine 150 MG CAPCR PO (09:26)
[2019-01-22] MEDS: Calcium 600mg/Vit D 200U TAB 1 TAB PO (09:26)
[2019-01-22] MEDS: Venlafaxine 37.5 MG CAPCR 75 MG PO (09:27)
[2019-01-22] MEDS: Enalapril 5 MG TAB 10 MG PO (09:27)
[2019-01-22] MEDS: amLODIPine 10 MG TAB PO (09:28)
[2019-01-22] MEDS: Potassium Chloride 20 MEQ TABCR 40 MEQ PO (09:29)
[2019-01-22] MEDS: MAGNESIUM SULFATE 2 GM/50 ML BAG IVPB (09:30)
--- NOTE | 2019-01-22 09:33 | INITIAL_ITS ---
Care Management Initial Assess REASON FOR HOSPITALIZATION:: Colitis PAST MEDICAL HISTORY/PAST SURGICAL HISTORY:: Past Medical History: Bronchiectasis , Chronic adrenal insufficiency,. Chronic tachycardia, Chronic use of steroids , Hx of cancer of uterus, Hx of cervical cancer, Hypoxia (Chronic) IBS (irritable bowel syndrome),. Insomnia, Lupus nephritis, Osteoarthritis, RLS (restless legs syndrome), Rheumatoid arthritis, ILD (interstitial lung disease), Koch's palsy,. COPD (chronic obstructive pulmonary disease)Depression, GERD (gastroesophageal reflux disease), Hx of breast cancer, Hypertension Multiple sclerosis, Osteoporosis, SLE (systemic lupus erythematosus). Past Surgical History: History of appendectomy (Chronic),History of right shoulder replacement,. History of surgery on right wrist, Personal history of bleeding following renal biopsy, Pilonidal cyst, S/P hip hemiarthroplasty, S/P tonsillectomy, Bilateral salpingectomy with oophorectomy, Breast, Mastectomy Bilateral. Colonoscopy - MAC (06/03/17). Extraction of cataract. Fracture, Open Treatment (10/01/14). Hysterectomy, Laproscopic PREVIOUS FUNCTIONAL STATUS/SOCIAL/FAMILY SUPPORTS:: Rafaela is a 73 y/o woman who lives with her . They have 2 homes. One is an apartment with a full flight of outside stairs to access the apartment where they spend their weekdays during the winter. They also have a multi-level home in [place] where they spend weekends and guevara. That home has 4 levels with 6-7 stairs between levels which are necessary to access bathroom facilities from the main living area.They have 2 daughters(hers) and 3 sons (his). Both her and children, especially her daughters, are very supportive. Rafaela experiences extreme shortness of breath and becomes tachycardiac with even mild activity. Walking from living room to kitchen and back requires at least 10 minutes for recovery. She describes her daily life as doing nothing but laying on the couch. Rafaela does not drive and relies on her to manage most ADLs in the home. She reports he is 77 and works 8-10 hours and day and she does not want him to have to manage home chores too. CURRENT FUNCTIONAL STATUS:: Rafaela was smiling and open and engaged in the conversation, often displaying a good sense of humor. ADVANCE DIRECTIVES:: Advanced directives on file. Chester Mathew is her healthcare agent. Has patient been provided with information about the portal?: Yes Did the patient sign up for the portal?: Yes (Previously) CODE STATUS:: Full Code INSURANCE COVERAGE / FINANCIAL ISSUES:: Medicare CURRENT HOME/COMMUNITY SERVICES/EQUIPMENT:: Rafaela lives in a multi-level home in [place] and spends time in an apartment in [facility] during the week. No services at this time PRIMARY CARE PHYSICIAN:: Katina Lopez POTENTIAL DISCHARGE NEEDS:: Follow up appointments. PATIENT/FAMILY EDUCATION NEEDS:: Review of discharge instructions, discuss Ask Me Three. ANTICIPATED BARRIERS TO DISCHARGE:: None identified. TRANSPORTATION:: Via private car with family at time of discharge. PLAN:: Rafaela continues to be closely monitored and treated for colitis. CM will fax referral to [facility] for [facility] (once agency confirmed for [facility]). CM will to continue to provide support to patient, family, care team ongoing discharge planning.
[2019-01-22] MEDS: Umeclidinium 7 CAP INHALER 1 CAP IH (09:38)
[2019-01-22] MEDS: Budesonide 0.5 MG/2 ML UPD VIAL IH ×2 (09:39→20:04)
[2019-01-22 11:49] VITALS: BP 152/88; PULSE 104; RESP 18; TEMP 36; O2SAT 94
--- NOTE | 2019-01-22 14:35 | W.PM.PROGNOT ---
Date of Service Date of service: 01/22/19 Time of Service: 14:36 Assessment and Plan Assessment and plan (1) Colitis: Status: Acute Assessment and plan: Evidence of an acute colitis, overlying a somewhat chronic appearing diarrhea of unknown etiology. Etiology for the patient's colitis is unclear at this time. -Check C. difficile, stool cultures, and fecal leukocytes - differential at this time includes infectious vs. inflammatory vs. ischemic colitis. However, patient is not moving her bowel currently. -Patient has a history of 'adrenal insufficiency' as per review of her prior records. Please note that she is on minimal dose daily steroids, and the use of higher dose steroids are risky given the uncertain nature of her colitis. However, given this diagnosis we are at this point somewhat forced to initiate stress dose steroids. Given that she is on minimal dose prednisone will initiate very low-dose stress dose steroids, with plans for a very short taper. ?Would generally hold off on antibiotic therapy, but given that there may be findings consistent with pneumonia the patient certainly warrants antibiotic therapy, and since she is being initiated on this will include intra-abdominal coverage as well. Allergy to penicillin and fluoroquinolones noted. Continue day #2 of ceftriaxone and metronidazole which should provide adequate coverage for pneumonia and intra-abdominal pathogens. Patient was also vomiting prior to her admission making aspiration pneumonia a possibility, and with metronidazole providing anaerobic coverage. (2) COPD with acute exacerbation: Status: Acute Assessment and plan: Appears quiescent at this time. Continue inhaler therapy, duo nebs as needed. (3) Systemic lupus erythematosus: Status: Acute Assessment and plan: History of SLE as well as RA. Patient on DMARD therapy with leflunomide. Also on low-dose daily prednisone. (4) GERD (gastroesophageal reflux disease): Status: Chronic Assessment and plan: Continue PPI therapy. (5) Depressive disorder: Status: Acute Assessment and plan: Continue SNRI, low-dose benzo. The patient is on chronic benzodiazepine therapy with clonazepam, which needs to be continued at this time to avoid risk of withdrawal. (6) DVT prophylaxis: Status: Acute Assessment and plan: SC Lovenox. (7) Advanced directives, counseling/discussion: Status: Acute Assessment and plan: DNR/DNI per conversation with patient. Subjective Subjective Interval history since last seen: Very pleasant 73-year-old woman with past medical history significant for chronic diarrhea, admitted from [facility] Emergency Department on 01/21 with a diagnosis of colitis. Mrs. Mathew has a past Medical History significant for severe COPD with prior hospitalizations, last in June 2018. Her other medical history includes HTN, MS, GERD, anxiety, depression, and osteoporosis. She also has a diagnosis of SLE and RA, on chronic DMARD therapy and daily prednisone. She has a reported chronic diarrhea, ongoing for approximately 2 years, for which she has undergone a colonoscopy in the May 2017, reportedly largely benign. Her diarrhea worsened over this past summer, culminating in weight loss and decreased oral intake. Over the course of the last 4 to 5 days the patient has had significant worsening in her oral intake, with continuous nausea and vomiting and inability to keep food down. She does however report that her last bout of diarrhea was approximately 4 days prior to admission, and that she has not moved her bowels since that time. Work-up in the ED was significant for a mild leukocytosis that appears to be a chronic finding, mild thrombocytosis, and normal hemoglobin, with an essentially normal comprehensive metabolic panel. Notable exceptions to this are a low albumin at 2.9, and a mild and chronic appearing hypokalemia with a potassium of 3.4. Her urinalysis did not show any evidence of infection. Chest x-ray showed no evidence of acute pathology, but CT of the chest, abdomen and pelvis obtained in the ED showed an opacity in the LLL suspicious for either atelectasis or pneumonia, as well as findings suspicious for an inflammatory or infectious colitis involving the descending and sigmoid colon. Of note the patient also complains of left sided abdominal pain. Given the patient's findings and inability to tolerate oral intake she was referred for admission for further evaluation and treatment. This morning Mrs. Mathew reports improvement in her symptoms, with decrease in pain, improvement in oral intake, and decrease but continued nausea. Leukocytosis and thrombocytosis appear resolved. No overnight events reported. Exam Narrative Exam Narrative: General: Patient appears chronically ill but not toxic, thin and slightly cachectic in appearance, AAOX3, NAD Neck: Supple CV: Regular, tachycardic, S1S2, No rubs, murmurs, or gallops. Pulmonary: Clear to auscultation bilaterally, no crackles, wheezing, or rhonchi Abdomen: + Bowel Sounds, soft, nondistended, mild left lower and left lateral abdominal pain on palpation without rebound. No evidence of an acute abdomen. Vascular: No lower extremity edema Neurologic: CN II-XII grossly intact. No focal deficits. Psych: Normal mood and affect. Objective Objective Clinical Data: Abnormal lab results 01/22/19 01/22/19 Range/Units 06:40 06:40 Hgb 11.2 L (12.0-15.5) g/dL MCH 24.7 L (27.0-33.0) pg MCHC 30.6 L (32.0-36.0) g/dL RDW 15.6 H (11.7-14.6) % Absolute Lymphocytes 0.69 L (1.2-3.4) k/cumm Anion Gap 11.6 H (3-11) mmol/L Creatinine 0.48 L (0.55-1.02) mg/dL Glucose 109 H (70-100) mg/dL Calcium 8.0 L (8.5-10.1) mg/dL Magnesium 1.6 L (1.8-2.4) mg/dL Vital Signs Temperature 36 C L 01/22/19 11:49 Temperature Source Tympanic 01/22/19 11:49 Pulse 104 H 01/22/19 11:49 Pulse Rhythm Regular 01/22/19 11:14 Pulse 125 H 01/21/19 16:31 Respiratory Rate 18 01/22/19 11:49 Respiratory Effort Labored 01/22/19 11:14 Respiratory Depth Shallow 01/22/19 11:14 Respiratory Pattern Tachypnea 01/22/19 11:14 Blood Pressure 152/88 H 01/22/19 11:49 Blood Pressure Mean 86 01/21/19 16:30 Blood Pressure Position Supine 01/21/19 11:16 Pulse Oximetry 94 L 01/22/19 11:49 Oxygen Delivery Method Room Air 01/22/19 11:49 Oxygen Flow Rate 0 01/22/19 11:49 Pain Level 0 01/22/19 11:49 Comment 01/22/19 07:10 Intake & Output 01/21/19 01/22/19 01/22/19 23:59 11:59 23:59 Intake Total 1400 / 1400 2110 / 2110 Output Total 1000 / 1000 Balance 1400 / 1400 1110 / 1110 Weight 43.091 kg 43.1 kg Intake: IV 1160 / 1160 2109 2109 Oral 240 / 240 Output: Urine 1000 / 1000 Other: Urine Color Yellow Light Cammy Urine Appearance Clear Clear Urine Odor Normal Normal Comment Hat not in toilet; no measurement. Pt voiding ad tiana; denies sx. Voiding Methods Toilet Toilet Toilet Laboratory Results WBC 6.13 k/cumm (4.4-10.8) D 01/22/19 06:40 RBC 4.54 m/cumm (4.00-5.20) 01/22/19 06:40 Hgb 11.2 g/dL (12.0-15.5) L 01/22/19 06:40 Hct 36.6 % (36.0-46.0) 01/22/19 06:40 MCV 80.6 fL (80-95) 01/22/19 06:40 MCH 24.7 pg (27.0-33.0) L 01/22/19 06:40 MCHC 30.6 g/dL (32.0-36.0) L 01/22/19 06:40 RDW 15.6 % (11.7-14.6) H 01/22/19 06:40 Plt Count 311 x1000/uL (130-400) D 01/22/19 06:40 MPV 10.7 fL (8.0-11.0) 01/22/19 06:40 Immature Gran % 1.1 01/22/19 06:40 Neutrophils % 82.0 01/22/19 06:40 Lymphocytes % 11.3 01/22/19 06:40 Monocytes % 4.9 01/22/19 06:40 Eosinophils % 0.2 01/22/19 06:40 Basophils % 0.5 01/22/19 06:40 Absolute Neutrophils 5.03 k/cumm (1.2-6.7) 01/22/19 06:40 Absolute Lymphocytes 0.69 k/cumm (1.2-3.4) L 01/22/19 06:40 Absolute Monocytes 0.30 k/cumm (0.11-0.7) 01/22/19 06:40 Absolute Eosinophils 0.01 k/cumm (0.0-0.7) 01/22/19 06:40 Absolute Basophils 0.03 k/cumm (0.0-0.2) 01/22/19 06:40 PT 10.8 sec (9.3-11.0) 01/21/19 11:37 INR 1.1 (0.9-1.1) 01/21/19 11:37 APTT 24.8 sec (21.0-31.4) 01/21/19 11:37 Sodium 144 mmol/L (136-145) 01/22/19 06:40 Potassium 3.5 mmol/L (3.5-5.1) 01/22/19 06:40 Chloride 107 mmol/L (98-107) 01/22/19 06:40 Carbon Dioxide 25.4 mmol/L (21.0-32.0) 01/22/19 06:40 Anion Gap 11.6 mmol/L (3-11) H 01/22/19 06:40 BUN 7 mg/dL (7-18) 01/22/19 06:40 Creatinine 0.48 mg/dL (0.55-1.02) L 01/22/19 06:40 Estimated GFR/1.73 m2 >= 60.00 (mL/min/1.73m2) 01/22/19 06:40 Glucose 109 mg/dL (70-100) H 01/22/19 06:40 Calcium 8.0 mg/dL (8.5-10.1) L 01/22/19 06:40 Magnesium 1.6 mg/dL (1.8-2.4) L 01/22/19 06:40 Total Bilirubin 0.4 mg/dL (0.2-1.0) 01/21/19 11:37 AST 19 U/L (15-37) 01/21/19 11:37 ALT 29 U/L (14-59) 01/21/19 11:37 Alkaline Phosphatase 100 U/L (46-116) 01/21/19 11:37 Troponin I < 0.05 ng/mL (0.00-0.06) 01/21/19 14:15 Total Protein 7.8 g/dL (6.4-8.2) 01/21/19 11:37 Albumin 2.9 g/dL (3.4-5.0) L 01/21/19 11:37 Lipase 104 U/L (73-393) 01/21/19 11:37 Urine Color Yellow (Yellow) 01/21/19 12:26 Urine Clarity Clear (Clear) 01/21/19 12:26 Urine pH 6.0 (5-8) 01/21/19 12:26 Ur Specific [place] 1.015 (1.005-1.025) 01/21/19 12:26 Urine Protein Trace mg/dL (Negative) H 01/21/19 12:26 Urine Ketones Trace mg/dL (Negative) H 01/21/19 12:26 Urine Blood Small (Negative) H 01/21/19 12:26 Urine Nitrite Negative (Negative) 01/21/19 12:26 Urine Bilirubin Small (Negative) H 01/21/19 12:26 Urine Urobilinogen 0.2 EU/dL (Up TO 0.2) 01/21/19 12:26 Ur Leukocyte Esterase Negative (Negative) 01/21/19 12:26 Urine RBC 0-2 (0-2) 01/21/19 12:26 Urine WBC 0-2 HPF (0-5) 01/21/19 12:26 Ur Epithelial Cells Rare HPF (Negative) 01/21/19 12:26 Urine Crystals Negative HPF (Negative) 01/21/19 12:26 Urine Bacteria Few HPF (Negative) 01/21/19 12:26 Urine Casts Negative LPF (Negative) 01/21/19 12:26 Urine Mucus Moderate (Negative) 01/21/19 12:26 Urine Other Rare renal (Negative) 01/21/19 12:26 Ur Culture Indicated? No 01/21/19 12:26 Urine Glucose Negative mg/dL (Negative) 01/21/19 12:26
--- NOTE | 2019-01-22 15:14 | PHARADMIT ---
Addendum entered by Garima Stringer 01/24/19 12:55: Pharmacy Note Subjective Lost IV access this morning, c/o diarrhea Objective BP 145/80, HR>100 C.Diff to PCR is pending Assessment Chris serrano....change Flagyl to oral only starting Questran for diarrhea (#3 BM's today so far) increase Prednisone to 7.5mg daily Plan Nurse trying to get patient to bring in Arava (Leflunomide) from home as Pt's own med--update, patient hasn't taken in over a week, will not be bringing it in due to anticipated discharge soon follow Micro for C.Diff Addendum entered by Lorena Toth 01/23/19 15:40: Pharmacy Note Subjective looking and feeling better, had BM this morning per nursing report Objective BP-156/90 other VS okay Cl-110 SCr-0.80(up) Assessment steroid being tapered ceftriaxone and metronidazole continue (day 3 starts this evening) C.Diff was indeterminant so PCR being done Plan watch for PCR results Original Note: Admission Pharmacy Clinical Review Colitis Code Status DNR/DNI Current Weight 43.1 kg Renally Cleared and Narrow Therapeutic Index Meds Crcl ~41.97 mL/min current meds okay QTc Value / Action Taken QTc 451 BP Control, Fever BP 155/88 afebrile Electrolytes reviewed mag 1.6 DVT Prophylaxis enoxaparin Opiate Usage / Scheduled Bowel Regimen Ordered no/prn Plt/SCr for Heparin / Enoxaparin plt 311 SCr 0.48 INR for Warfarin n/a H/H stable, WBC/Bands h/h 11.2/36.6 wbc 6.13 Antibiotic appropriateness ceftriaxone and metronidazole Cultures and Sensitivities C.diff pending Surgical ABX d/c within 24 hr n/a DM control / Insulin Dosing BG 109 none Heart Failure (Check EF%) (SHAR's, B-Block, Diuretics) amlodipine, IV to PO Switch n/a Home Meds Reviewed -umeclidinium may enhance the anticholinergic effect of dicyclomine; uptodate recommends avoiding the combination -prednisone may enhance the adverse/toxic effect of leflunomide -separate admin of prednisone from calcium/vitD Home Meds Not Ordered albuterol (has duonebs), benzonatate, cefpodoxime(has other abx), dicyclomine, formotorol, lansoprazole (has pantoprazole ordered), bactrim (has other abx) Comments possible pneumonia per morning report
[2019-01-22 16:17] VITALS: BP 146/64; PULSE 92; RESP 20; TEMP 36.2; O2SAT 95
[2019-01-22] MEDS: Potassium Chloride 10 MEQ TABCR PO (16:30)
[2019-01-22] MEDS: cefTRIAXone 2 GM/50 ML BAG IVPB (17:41)
[2019-01-22] MEDS: Enoxaparin 40 MG/0.4 ML SYR SC (17:42)
[2019-01-22] MEDS: clonazePAM 1 MG TAB PO (21:34)
[2019-01-22] MEDS: Enalapril 5 MG TAB PO (21:34)
[2019-01-22 22:53] VITALS: BP 139/74; PULSE 92; RESP 18; TEMP 35.9; O2SAT 95
[2019-01-23] MEDS: metroNIDAZOLE 500 MG/100 ML BAG 100 MG IVPB ×3 (04:42→20:35)
[2019-01-23] MEDS: Hydrocortisone SOD SUC. 100 MG VIAL 25 MG IVP (06:12)
[2019-01-23] MEDS: Normal Saline Flush 10 ML SYR IVP ×3 (06:13→17:24)
[2019-01-23 07:10] LABS: Abs Immature Grans 0.12 k/cumm (0.0-0.09); Absolute Basophil Count 0.06 k/cumm (0.0-0.2); Absolute Eosinophil Count 0.15 k/cumm (0.0-0.7); Absolute Lymphocyte Count 2.08 k/cumm (1.2-3.4); Absolute Monocyte Count 0.98 k/cumm (0.11-0.7); Absolute Neutrophil Count 3.77 k/cumm (1.2-6.7); Basophils % 0.8; Eosinophils % 2.1; HCT 36.3 % (36.0-46.0); HGB 11.3 g/dL (12.0-15.5); Immature Grans % 1.7; Lymphocytes % 29.1; Mean Corp. HGB Concentration 31.1 g/dL (32.0-36.0); Mean Corpuscular Hemoglobin 25.1 pg (27.0-33.0); Mean Corpuscular Volume 80.7 fL (80-95); Mean Platelet Volume 10.5 fL (8.0-11.0); Monocytes % 13.7; Neutrophils % 52.6; Platelet Count 389 x1000/uL (130-400); RBC Distribution Width 15.6 % (11.7-14.6); White Blood Cell Count 7.16 k/cumm (4.4-10.8)
[2019-01-23 07:18] LABS: Anion Gap 12.1 mmol/L (3-11); BUN 5 mg/dL (7-18); CO2 22.9 mmol/L (21.0-32.0); Calcium 8.2 mg/dL (8.5-10.1); Chloride 110 mmol/L (98-107); Glucose 107 mg/dL (70-100); Magnesium 2.1 mg/dL (1.8-2.4); Potassium 3.8 mmol/L (3.5-5.1); Sodium 145 mmol/L (136-145)
[2019-01-23] MEDS: Venlafaxine 37.5 MG CAPCR 75 MG PO (07:27)
[2019-01-23] MEDS: Calcium 600mg/Vit D 200U TAB 1 TAB PO (07:27)
[2019-01-23] MEDS: Enalapril 5 MG TAB 10 MG PO (07:28)
[2019-01-23] MEDS: Pantoprazole 40 MG TABCR PO (07:28)
[2019-01-23] MEDS: amLODIPine 10 MG TAB PO (07:28)
[2019-01-23] MEDS: predniSONE 5 MG TAB PO (07:29)
[2019-01-23] MEDS: Venlafaxine 150 MG CAPCR PO (07:29)
[2019-01-23 07:36] VITALS: BP 156/90; PULSE 80; RESP 17; TEMP 36.8; O2SAT 97
[2019-01-23] MEDS: Budesonide 0.5 MG/2 ML UPD VIAL IH ×2 (08:10→20:35)
[2019-01-23] MEDS: Umeclidinium 7 CAP INHALER 1 CAP IH (08:11)
[2019-01-23] MEDS: Potassium Chloride 20 MEQ TABCR PO (10:02)
[2019-01-23] MEDS: Normal Saline 500 ML IV (11:15)
--- NOTE | 2019-01-23 13:30 | CMPROGNOTE_ITS ---
- If Service Date Differs Date of service: 01/23/19 Time of Service: 13:30 Care Management Progress Note S/O: Rafaela was sitting up in her bed when CM met with her. She stated that she is feeling better, but that she is not planning on going home today. She reported that she is worried about food at home because she cooks and she is not healthy enough to cook right now. CM discussed options in our area including [place] [facility]. CM confirmed address, as she lives in [place], but gets her m ail in [facility]. CM sent a referral to [facility] for options counseling and [facility] with [place] address listed. Rafaela stated that she doesn't know if they will go all the way to [place]. CM called and left message for [facility] to clarify scope of service area. CM will continue to follow. A: Rafaela is a 73 year old female admitted to [facility] on 01/21/2019 with Colitis. P: Anticipate Rafaela will return home when medically cleared. CM sent referral to [facility] for options counseling and [facility]. Rafaela will have a follow up with GI to set up outpatient colonoscopy with Dr. Dawson at [facility]. CM will continue to f pilar.
--- NOTE | 2019-01-23 15:31 | W.PM.PROGNOT ---
Date of Service Date of service: 01/23/19 Time of Service: 15:31 Assessment and Plan Assessment and plan (1) Colitis: Status: Acute Assessment and plan: Evidence of an acute colitis, overlying a somewhat chronic appearing diarrhea of unknown etiology. Reason for patient's colitis is unclear at this time. - C. difficile 'indeterminate' and reflexed to PCR. However, patient without a bowel movement between Saturday and this morning - doubt CDI. - Fecal Leukocytes positive. Stool cultures pending. Differential at this time includes infectious vs. inflammatory. Patient with significant improvement - unsure if on the basis of steroids or antibiotics. - History of 'adrenal insufficiency' as per review of her prior records. Please note that she is on minimal dose daily steroids, and the use of higher dose steroids are risky given the uncertain nature of her colitis. However, given this diagnosis she was initiated on stress dose steroids. Given that she is on minimal dose prednisone initiated very low-dose stress dose steroids, with plans for a very short taper - to conclude tomorrow morning. ? Would generally hold off on antibiotic therapy until return of stool cultures and C.Diff, but given that patient had findings consistent with pneumonia she warranted antibiotic therapy - included intra-abdominal coverage as well potential for aspiration given vomiting episodes at home. Allergy to penicillin and fluoroquinolones noted. Continue day #3 of ceftriaxone and metronidazole. Case was discussed with GI at [facility], Dr. Dawson, who agreed of the uncertain picture of patient's chronic and acute symptoms, and agreed that she is in need of a repeat colonoscopy soon. Her information will be passed on to the GI clinic by Dr. Dawson in order to facilitate a Colonoscopy and follow-up appointment. (2) COPD with acute exacerbation: Status: Acute Assessment and plan: Appears quiescent at this time. Continue inhaler therapy, duo nebs as needed. (3) Systemic lupus erythematosus: Status: Acute Assessment and plan: History of SLE as well as RA. Patient on DMARD therapy with leflunomide. Also on low-dose daily prednisone. (4) GERD (gastroesophageal reflux disease): Status: Chronic Assessment and plan: Continue PPI therapy. (5) Depressive disorder: Status: Acute Assessment and plan: Continue SNRI, low-dose benzo. The patient is on chronic benzodiazepine therapy with clonazepam, which needs to be continued at this time to avoid risk of withdrawal. (6) DVT prophylaxis: Status: Acute Assessment and plan: SC Lovenox. (7) Advanced directives, counseling/discussion: Status: Acute Assessment and plan: DNR/DNI per conversation with patient. Subjective Subjective Interval history since last seen: Very pleasant 73-year-old woman with past medical history significant for chronic diarrhea, admitted from [facility] Emergency Department on 01/21 with a diagnosis of colitis. Mrs. Mathew has a past Medical History significant for severe COPD with prior hospitalizations, last in June 2018. Her other medical history includes HTN, MS, GERD, anxiety, depression, and osteoporosis. She also has a diagnosis of SLE and RA, on chronic DMARD therapy and daily prednisone. She has a reported chronic diarrhea, ongoing for approximately 2 years, for which she has undergone a colonoscopy in the May 2017, reportedly largely benign. Her diarrhea worsened over this past summer, culminating in weight loss and decreased oral intake. Over the course of the last 4 to 5 days the patient has had significant worsening in her oral intake, with continuous nausea and vomiting and inability to keep food down. She does however report that her last bout of diarrhea was approximately 4 days prior to admission, and that she has not moved her bowels since that time. Work-up in the ED was significant for a mild leukocytosis that appears to be a chronic finding, mild thrombocytosis, and normal hemoglobin, with an essentially normal comprehensive metabolic panel. Notable exceptions to this are a low albumin at 2.9, and a mild and chronic appearing hypokalemia with a potassium of 3.4. Her urinalysis did not show any evidence of infection. Chest x-ray showed no evidence of acute pathology, but CT of the chest, abdomen and pelvis obtained in the ED showed an opacity in the LLL suspicious for either atelectasis or pneumonia, as well as findings suspicious for an inflammatory or infectious colitis involving the descending and sigmoid colon. Of note the patient also complains of left sided abdominal pain. Given the patient's findings and inability to tolerate oral intake she was referred for admission for further evaluation and treatment. This morning Mrs. Mathew reports significant improvement in her symptoms, with decrease in pain, improvement in oral intake and appetite, and resolution of nausea. Leukocytosis and thrombocytosis remain resolved. C.Diff returned as indeterminate and reflexed to PCR, and Fecal Leukocytes are positive as expected. No overnight events reported. Exam Narrative Exam Narrative: General: Patient appears chronically ill but not toxic, thin and slightly cachectic in appearance, AAOX3, NAD Neck: Supple CV: Regular, tachycardic, S1S2, No rubs, murmurs, or gallops. Pulmonary: Clear to auscultation bilaterally, no crackles, wheezing, or rhonchi Abdomen: + Bowel Sounds, soft, nondistended, mild left lower and left lateral abdominal pain on palpation without rebound, improved. No evidence of an acute abdomen. Vascular: No lower extremity edema Psych: Normal mood and affect. Objective Objective Clinical Data: Abnormal lab results 01/23/19 01/23/19 Range/Units 06:40 06:40 Hgb 11.3 L (12.0-15.5) g/dL MCH 25.1 L (27.0-33.0) pg MCHC 31.1 L (32.0-36.0) g/dL RDW 15.6 H (11.7-14.6) % Absolute Monocytes 0.98 H (0.11-0.7) k/cumm Chloride 110 H (98-107) mmol/L Anion Gap 12.1 H (3-11) mmol/L BUN 5 L (7-18) mg/dL Glucose 107 H (70-100) mg/dL Calcium 8.2 L (8.5-10.1) mg/dL Vital Signs Temperature 36.8 C 01/23/19 07:36 Temperature Source Temporal Artery Scan 01/23/19 07:36 Pulse 80 01/23/19 07:36 Pulse Rhythm Regular 01/23/19 14:51 Pulse 125 H 01/21/19 16:31 Respiratory Rate 17 01/23/19 07:36 Respiratory Effort Non-Labored 01/23/19 14:51 Respiratory Depth Normal 01/23/19 14:51 Respiratory Pattern Normal 01/23/19 14:51 Blood Pressure 156/90 H 01/23/19 07:36 Blood Pressure Mean 86 01/21/19 16:30 Blood Pressure Position Supine 01/21/19 11:16 Pulse Oximetry 97 01/23/19 07:36 Oxygen Delivery Method Room Air 01/23/19 07:36 Oxygen Flow Rate 0 01/23/19 07:36 Pain Level 0 01/23/19 07:36 Comment 01/23/19 07:36 Intake & Output 01/22/19 01/23/19 01/23/19 23:59 11:59 23:59 Intake Total 2110 / 4220 550 / 570 20 / 570 Output Total 950 / 1950 1000 / 1000 Balance 1160 / 2270 -450 / -430 20 / -430 Weight 45.7 kg Intake: IV 1060 / 3170 100 / 120 20 / 120 Oral 1050 / 1050 450 / 450 Output: Urine 950 / 1950 1000 / 1000 Other: Urine Color Light Cammy Yellow Urine Appearance Clear Clear Urine Odor None None Comment hat emptied. Stool Size Small Stool Characteristics Liquid Voiding Methods Toilet Toilet Laboratory Results WBC 7.16 k/cumm (4.4-10.8) 01/23/19 06:40 RBC 4.50 m/cumm (4.00-5.20) 01/23/19 06:40 Hgb 11.3 g/dL (12.0-15.5) L 01/23/19 06:40 Hct 36.3 % (36.0-46.0) 01/23/19 06:40 MCV 80.7 fL (80-95) 01/23/19 06:40 MCH 25.1 pg (27.0-33.0) L 01/23/19 06:40 MCHC 31.1 g/dL (32.0-36.0) L 01/23/19 06:40 RDW 15.6 % (11.7-14.6) H 01/23/19 06:40 Plt Count 389 x1000/uL (130-400) 01/23/19 06:40 MPV 10.5 fL (8.0-11.0) 01/23/19 06:40 Immature Gran % 1.7 01/23/19 06:40 Neutrophils % 52.6 01/23/19 06:40 Lymphocytes % 29.1 01/23/19 06:40 Monocytes % 13.7 01/23/19 06:40 Eosinophils % 2.1 01/23/19 06:40 Basophils % 0.8 01/23/19 06:40 Absolute Neutrophils 3.77 k/cumm (1.2-6.7) 01/23/19 06:40 Absolute Lymphocytes 2.08 k/cumm (1.2-3.4) 01/23/19 06:40 Absolute Monocytes 0.98 k/cumm (0.11-0.7) H 01/23/19 06:40 Absolute Eosinophils 0.15 k/cumm (0.0-0.7) 01/23/19 06:40 Absolute Basophils 0.06 k/cumm (0.0-0.2) 01/23/19 06:40 PT 10.8 sec (9.3-11.0) 01/21/19 11:37 INR 1.1 (0.9-1.1) 01/21/19 11:37 APTT 24.8 sec (21.0-31.4) 01/21/19 11:37 Sodium 145 mmol/L (136-145) 01/23/19 06:40 Potassium 3.8 mmol/L (3.5-5.1) 01/23/19 06:40 Chloride 110 mmol/L (98-107) H 01/23/19 06:40 Carbon Dioxide 22.9 mmol/L (21.0-32.0) 01/23/19 06:40 Anion Gap 12.1 mmol/L (3-11) H 01/23/19 06:40 BUN 5 mg/dL (7-18) L 01/23/19 06:40 Creatinine 0.80 mg/dL (0.55-1.02) 01/23/19 06:40 Estimated GFR/1.73 m2 >= 60.00 (mL/min/1.73m2) 01/23/19 06:40 Glucose 107 mg/dL (70-100) H 01/23/19 06:40 Calcium 8.2 mg/dL (8.5-10.1) L 01/23/19 06:40 Magnesium 2.1 mg/dL (1.8-2.4) 01/23/19 06:40 Total Bilirubin 0.4 mg/dL (0.2-1.0) 01/21/19 11:37 AST 19 U/L (15-37) 01/21/19 11:37 ALT 29 U/L (14-59) 01/21/19 11:37 Alkaline Phosphatase 100 U/L (46-116) 01/21/19 11:37 Troponin I < 0.05 ng/mL (0.00-0.06) 01/21/19 14:15 Total Protein 7.8 g/dL (6.4-8.2) 01/21/19 11:37 Albumin 2.9 g/dL (3.4-5.0) L 01/21/19 11:37 Lipase 104 U/L (73-393) 01/21/19 11:37 Urine Color Yellow (Yellow) 01/21/19 12:26 Urine Clarity Clear (Clear) 01/21/19 12:26 Urine pH 6.0 (5-8) 01/21/19 12:26 Ur Specific [place] 1.015 (1.005-1.025) 01/21/19 12:26 Urine Protein Trace mg/dL (Negative) H 01/21/19 12:26 Urine Ketones Trace mg/dL (Negative) H 01/21/19 12:26 Urine Blood Small (Negative) H 01/21/19 12:26 Urine Nitrite Negative (Negative) 01/21/19 12:26 Urine Bilirubin Small (Negative) H 01/21/19 12:26 Urine Urobilinogen 0.2 EU/dL (Up TO 0.2) 01/21/19 12:26 Ur Leukocyte Esterase Negative (Negative) 01/21/19 12:26 Urine RBC 0-2 (0-2) 01/21/19 12:26 Urine WBC 0-2 HPF (0-5) 01/21/19 12:26 Ur Epithelial Cells Rare HPF (Negative) 01/21/19 12:26 Urine Crystals Negative HPF (Negative) 01/21/19 12:26 Urine Bacteria Few HPF (Negative) 01/21/19 12:26 Urine Casts Negative LPF (Negative) 01/21/19 12:26 Urine Mucus Moderate (Negative) 01/21/19 12:26 Urine Other Rare renal (Negative) 01/21/19 12:26 Ur Culture Indicated? No 01/21/19 12:26 Urine Glucose Negative mg/dL (Negative) 01/21/19 12:26
[2019-01-23 15:52] VITALS: BP 134/73; PULSE 100; RESP 18; TEMP 36.7; O2SAT 96
[2019-01-23] MEDS: cefTRIAXone 2 GM/50 ML BAG IVPB (17:25)
[2019-01-23] MEDS: Enoxaparin 40 MG/0.4 ML SYR SC (17:27)
[2019-01-23 20:50] VITALS: BP 172/106; PULSE 120; RESP 22; TEMP 36.1; O2SAT 95
[2019-01-23 21:05] VITALS: BP 178/96; PULSE 99; RESP 20; O2SAT 96
[2019-01-23] MEDS: Enalapril 5 MG TAB PO (21:11)
[2019-01-23] MEDS: clonazePAM 1 MG TAB PO (23:26)
[2019-01-24] MEDS: metroNIDAZOLE 500 MG/100 ML BAG 100 MG IVPB (04:47)
[2019-01-24 07:05] LABS: Abs Immature Grans 0.14 k/cumm (0.0-0.09); HCT 35.7 % (36.0-46.0); Mean Corp. HGB Concentration 30.8 g/dL (32.0-36.0); Mean Corpuscular Hemoglobin 24.9 pg (27.0-33.0); Mean Corpuscular Volume 80.8 fL (80-95); Mean Platelet Volume 10.2 fL (8.0-11.0); Platelet Count 356 x1000/uL (130-400); RBC 4.42 m/cumm (4.00-5.20); RBC Distribution Width 15.8 % (11.7-14.6); White Blood Cell Count 6.47 k/cumm (4.4-10.8)
[2019-01-24 07:16] LABS: Anion Gap 8.9 mmol/L (3-11); BUN 6 mg/dL (7-18); CO2 28.1 mmol/L (21.0-32.0); CREATININE 0.66 mg/dL (0.55-1.02); Calcium 8.3 mg/dL (8.5-10.1); Chloride 108 mmol/L (98-107); Glucose 93 mg/dL (70-100); Magnesium 1.8 mg/dL (1.8-2.4); Potassium 3.6 mmol/L (3.5-5.1); Sodium 145 mmol/L (136-145)
[2019-01-24 07:20] VITALS: BP 145/80; PULSE 94; RESP 17; TEMP 36.5; O2SAT 95
[2019-01-24 08:08] LABS: Absolute Lymphocyte Count 1.68 k/cumm (1.2-3.4); Absolute Monocyte Count 1.04 k/cumm (0.11-0.7); Absolute Neutrophil Count 3.49 k/cumm (1.2-6.7)
[2019-01-24 08:09] LABS: Absolute Eosinophil Count 0.19 k/cumm (0.0-0.7); Diff Comment Manual Differential; Hypochromasia 1+; Microcytosis 1+
[2019-01-24] MEDS: Normal Saline Flush 10 ML SYR IVP (08:11)
[2019-01-24] MEDS: Enalapril 5 MG TAB 10 MG PO (08:14)
[2019-01-24] MEDS: Venlafaxine 37.5 MG CAPCR 75 MG PO (08:15)
[2019-01-24] MEDS: Venlafaxine 150 MG CAPCR PO (08:15)
[2019-01-24] MEDS: Pantoprazole 40 MG TABCR PO (08:15)
[2019-01-24] MEDS: predniSONE 5 MG TAB PO (08:15)
[2019-01-24] MEDS: Calcium 600mg/Vit D 200U TAB 1 TAB PO (08:15)
[2019-01-24] MEDS: amLODIPine 10 MG TAB PO (08:15)
[2019-01-24 09:25] VITALS: PULSE 119
[2019-01-24] MEDS: Budesonide 0.5 MG/2 ML UPD VIAL IH ×2 (09:33→21:36)
[2019-01-24] MEDS: Umeclidinium 7 CAP INHALER 1 CAP IH (09:38)
--- NOTE | 2019-01-24 09:48 | CMPROGNOTE_ITS ---
Care Management Progress Note S/O: Rafaela has her door closed and is attempting to rest. She keeps having to get up to the bathroom which exhausts her as she becomes short of breath. Per provider, Cdiff PCR pending; Rafaela continues to struggle with diarrhea at this time and is on precautions. CM continues to follow. A: Rafaela is a 73 year old female admitted to [facility] on 01/21/2019 with Colitis. P: Anticipate Rafaela will return home when medically cleared. Referral faxed to [facility] for options counseling and [facility]. Rafaela will have a follow up appt with GI to set up outpatient colonoscopy with Dr. Dawson at [facility]. CM continues to follow.
[2019-01-24] MEDS: Cholestyramine/Aspartame PKT 1 EACH PO ×3 (11:05→21:36)
[2019-01-24 11:32] LABS: Result Negative; Specimen Description Feces
[2019-01-24 11:32] LABS: Campylobacter PCR SEE COMMENTS; Salmonella PCR SEE COMMENTS; Shiga Toxin PCR SEE COMMENTS; Shigella/Enteroinvasive Ecoli SEE COMMENTS
--- NOTE | 2019-01-24 12:02 | W.PM.PROGNOT ---
Date of Service Date of service: 01/24/19 Time of Service: 12:02 Assessment and Plan Assessment and plan (1) Colitis: Start time: 12:05 Status: Acute Assessment and plan: Evidence of an acute colitis, overlying a somewhat chronic appearing diarrhea of unknown etiology. Reason for patient's colitis is unclear at this time. Cdiff PCR pending. Transitioned to PO flagyl. Abdominal pain resolved. Continues to have diarrhea. Started on Questrian. Will need a follow up with GI as an outpatient for colonoscopy. (2) COPD with acute exacerbation: Start date: 01/24/19 Start time: 12:08 Status: Acute Assessment and plan: Appears quiescent at this time. Continue inhaler therapy, duo nebs as needed. (3) Systemic lupus erythematosus: Start date: 01/24/19 Start time: 12:08 Status: Acute Assessment and plan: History of SLE as well as RA. Patient on DMARD therapy with leflunomide. Also on low-dose daily prednisone. On stress steroids while at hospital, tapering back to daily dose of 5 mg at 7.5 today and tomorrow. (4) GERD (gastroesophageal reflux disease): Start date: 01/24/19 Start time: 12:09 Status: Chronic Assessment and plan: Continue PPI therapy. (5) Depressive disorder: Start date: 01/24/19 Start time: 12:09 Status: Acute Assessment and plan: Continue SNRI, low-dose benzo. The patient is on chronic benzodiazepine therapy with clonazepam, which needs to be continued at this time to avoid risk of withdrawal. (6) DVT prophylaxis: Start date: 01/24/19 Start time: 12:09 Status: Acute Assessment and plan: SC Lovenox. (7) Advanced directives, counseling/discussion: Start date: 01/24/19 Start time: 12:10 Status: Acute Assessment and plan: DNR/DNI per conversation with patient. Case discussed with Dr. Buckner who is in agreement. Subjective Subjective Patient reports: no new complaints Interval history since last seen: Continues to have diarrhea. No abdominal pain. No nausea or vomiting. Cdiff PCR pending. Transition to PO steroids, started on questrian and continue to monitor. Exam Narrative Exam Narrative: General: Patient appears chronically ill but not toxic, thin and slightly cachectic in appearance, AAOX3, NAD Neck: Supple CV: Regular, tachycardic, S1S2, No rubs, murmurs, or gallops. Pulmonary: Clear to auscultation bilaterally, no crackles, wheezing, or rhonchi Abdomen: + Bowel Sounds, soft, nondistended, no abdominal pain with palpation. No evidence of an acute abdomen. Vascular: No lower extremity edema Psych: Normal mood and affect. Objective Objective Clinical Data: Abnormal lab results 01/24/19 01/24/19 Range/Units 06:45 06:45 Hgb 11.0 L (12.0-15.5) g/dL Hct 35.7 L (36.0-46.0) % MCH 24.9 L (27.0-33.0) pg MCHC 30.8 L (32.0-36.0) g/dL RDW 15.8 H (11.7-14.6) % Absolute Monocytes 1.04 H (0.11-0.7) k/cumm Chloride 108 H (98-107) mmol/L BUN 6 L (7-18) mg/dL Calcium 8.3 L (8.5-10.1) mg/dL Vital Signs Temperature 36.5 C 01/24/19 07:20 Temperature Source Tympanic 01/24/19 07:20 Pulse 119 H 01/24/19 09:25 Pulse Rhythm Regular 01/24/19 09:25 Pulse 125 H 01/21/19 16:31 Respiratory Rate 17 01/24/19 07:20 Respiratory Effort Incrsd Work of Breathing 01/24/19 09:25 Respiratory Depth Shallow 01/24/19 09:25 Respiratory Pattern Tachypnea 01/24/19 09:25 Blood Pressure 145/80 H 01/24/19 07:20 Blood Pressure Mean 86 01/21/19 16:30 Blood Pressure Position Supine 01/21/19 11:16 Pulse Oximetry 95 01/24/19 07:20 Oxygen Delivery Method Room Air 01/24/19 07:20 Oxygen Flow Rate 0 01/24/19 07:20 Pain Level 0 01/24/19 07:20 Comment 01/23/19 20:50 Intake & Output 01/23/19 01/24/19 01/24/19 23:59 11:59 23:59 Intake Total 263.333 / 813.333 800 / 800 Output Total 800 / 1800 2300 / 2300 Balance -536.667 / -986.667 -1500 / -1500 Weight 44.6 kg Intake: IV 263.333 / 363.333 110 / 110 Oral 690 / 690 Output: Urine 800 / 1800 2300 / 2300 Other: Urine Color Dark Cammy Yellow Urine Appearance Clear Clear Urine Odor Normal None Stool Size Moderate Stool Characteristics Liquid Voiding Methods Toilet Toilet Laboratory Results WBC 6.47 k/cumm (4.4-10.8) 01/24/19 06:45 RBC 4.42 m/cumm (4.00-5.20) 01/24/19 06:45 Hgb 11.0 g/dL (12.0-15.5) L 01/24/19 06:45 Hct 35.7 % (36.0-46.0) L 01/24/19 06:45 MCV 80.8 fL (80-95) 01/24/19 06:45 MCH 24.9 pg (27.0-33.0) L 01/24/19 06:45 MCHC 30.8 g/dL (32.0-36.0) L 01/24/19 06:45 RDW 15.8 % (11.7-14.6) H 01/24/19 06:45 Plt Count 356 x1000/uL (130-400) 01/24/19 06:45 MPV 10.2 fL (8.0-11.0) 01/24/19 06:45 Immature Gran % See Differential 01/24/19 06:45 Neutrophils % 54.0 01/24/19 06:45 Lymphocytes % 26.0 01/24/19 06:45 Monocytes % 16.0 01/24/19 06:45 Eosinophils % 3.0 01/24/19 06:45 Basophils % 0.0 01/24/19 06:45 Metamyelocytes % 1.0 % 01/24/19 06:45 Absolute Neutrophils 3.49 k/cumm (1.2-6.7) 01/24/19 06:45 Absolute Lymphocytes 1.68 k/cumm (1.2-3.4) 01/24/19 06:45 Absolute Monocytes 1.04 k/cumm (0.11-0.7) H 01/24/19 06:45 Absolute Eosinophils 0.19 k/cumm (0.0-0.7) 01/24/19 06:45 Absolute Basophils 0.00 k/cumm (0.0-0.2) 01/24/19 06:45 Differential Comment Manual differential 01/24/19 06:45 RBC Morphology See below 01/24/19 06:45 Hypochromasia 1+ 01/24/19 06:45 Microcytosis 1+ 01/24/19 06:45 PT 10.8 sec (9.3-11.0) 01/21/19 11:37 INR 1.1 (0.9-1.1) 01/21/19 11:37 APTT 24.8 sec (21.0-31.4) 01/21/19 11:37 Sodium 145 mmol/L (136-145) 01/24/19 06:45 Potassium 3.6 mmol/L (3.5-5.1) 01/24/19 06:45 Chloride 108 mmol/L (98-107) H 01/24/19 06:45 Carbon Dioxide 28.1 mmol/L (21.0-32.0) 01/24/19 06:45 Anion Gap 8.9 mmol/L (3-11) 01/24/19 06:45 BUN 6 mg/dL (7-18) L 01/24/19 06:45 Creatinine 0.66 mg/dL (0.55-1.02) 01/24/19 06:45 Estimated GFR/1.73 m2 >= 60.00 (mL/min/1.73m2) 01/24/19 06:45 Glucose 93 mg/dL (70-100) 01/24/19 06:45 Calcium 8.3 mg/dL (8.5-10.1) L 01/24/19 06:45 Magnesium 1.8 mg/dL (1.8-2.4) 01/24/19 06:45 Total Bilirubin 0.4 mg/dL (0.2-1.0) 01/21/19 11:37 AST 19 U/L (15-37) 01/21/19 11:37 ALT 29 U/L (14-59) 01/21/19 11:37 Alkaline Phosphatase 100 U/L (46-116) 01/21/19 11:37 Troponin I < 0.05 ng/mL (0.00-0.06) 01/21/19 14:15 Total Protein 7.8 g/dL (6.4-8.2) 01/21/19 11:37 Albumin 2.9 g/dL (3.4-5.0) L 01/21/19 11:37 Lipase 104 U/L (73-393) 01/21/19 11:37 Urine Color Yellow (Yellow) 01/21/19 12:26 Urine Clarity Clear (Clear) 01/21/19 12:26 Urine pH 6.0 (5-8) 01/21/19 12:26 Ur Specific [place] 1.015 (1.005-1.025) 01/21/19 12:26 Urine Protein Trace mg/dL (Negative) H 01/21/19 12:26 Urine Ketones Trace mg/dL (Negative) H 01/21/19 12:26 Urine Blood Small (Negative) H 01/21/19 12:26 Urine Nitrite Negative (Negative) 01/21/19 12:26 Urine Bilirubin Small (Negative) H 01/21/19 12:26 Urine Urobilinogen 0.2 EU/dL (Up TO 0.2) 01/21/19 12:26 Ur Leukocyte Esterase Negative (Negative) 01/21/19 12:26 Urine RBC 0-2 (0-2) 01/21/19 12:26 Urine WBC 0-2 HPF (0-5) 01/21/19 12:26 Ur Epithelial Cells Rare HPF (Negative) 01/21/19 12:26 Urine Crystals Negative HPF (Negative) 01/21/19 12:26 Urine Bacteria Few HPF (Negative) 01/21/19 12:26 Urine Casts Negative LPF (Negative) 01/21/19 12:26 Urine Mucus Moderate (Negative) 01/21/19 12:26 Urine Other Rare renal (Negative) 01/21/19 12:26 Ur Culture Indicated? No 01/21/19 12:26 Urine Glucose Negative mg/dL (Negative) 01/21/19 12:26
[2019-01-24] MEDS: metroNIDAZOLE 500 MG TAB PO ×2 (13:44→21:36)
[2019-01-24 15:57] VITALS: BP 128/80; PULSE 98; RESP 18; TEMP 36.7; O2SAT 95
[2019-01-24] MEDS: Enoxaparin 40 MG/0.4 ML SYR SC (17:36)
[2019-01-24] MEDS: Enalapril 5 MG TAB PO (21:36)
[2019-01-24] MEDS: clonazePAM 1 MG TAB PO (23:08)
[2019-01-24 23:35] VITALS: BP 152/92; PULSE 100; RESP 19; TEMP 36.8; O2SAT 95
[2019-01-25 07:22] VITALS: BP 143/83; PULSE 97; RESP 23; TEMP 36.8; O2SAT 94
[2019-01-25] MEDS: Cholestyramine/Aspartame PKT 1 EACH PO ×2 (07:25→11:14)
[2019-01-25] MEDS: Pantoprazole 40 MG TABCR PO (07:25)
[2019-01-25] MEDS: Calcium 600mg/Vit D 200U TAB 1 TAB PO (08:18)
[2019-01-25] MEDS: metroNIDAZOLE 500 MG TAB PO (08:18)
[2019-01-25] MEDS: predniSONE 5 MG TAB 7.5 MG PO (08:18)
[2019-01-25] MEDS: Venlafaxine 37.5 MG CAPCR 75 MG PO (08:18)
[2019-01-25] MEDS: amLODIPine 10 MG TAB PO (08:19)
[2019-01-25] MEDS: Enalapril 5 MG TAB 10 MG PO (08:20)
[2019-01-25] MEDS: Venlafaxine 150 MG CAPCR PO (08:21)
--- NOTE | 2019-01-25 08:24 | PDOC.CMPRO ---
Care Management Progress Note S/O: A: Rafaela is a 73 year old female admitted to [facility] on 01/21/2019 with Colitis. P: CDIFF pending, remains on precautions. Anticipate Rafaela will return home when medically cleared. Referral faxed to [facility] for options counseling and [facility]. Rafaela will have a follow up appt with GI to set up outpatient colonoscopy with Dr. Dawson at [facility]. continues to follow.
[2019-01-25 08:48] LABS: HCT 41.6 % (36.0-46.0); HGB 12.9 g/dL (12.0-15.5); Mean Corpuscular Volume 80.6 fL (80-95); Mean Platelet Volume 10.3 fL (8.0-11.0); Platelet Count 451 x1000/uL (130-400); RBC 5.16 m/cumm (4.00-5.20); RBC Distribution Width 16.6 % (11.7-14.6); White Blood Cell Count 10.32 k/cumm (4.4-10.8)
[2019-01-25] MEDS: Budesonide 0.5 MG/2 ML UPD VIAL IH (08:51)
[2019-01-25] MEDS: Umeclidinium 7 CAP INHALER 1 CAP IH (08:52)
[2019-01-25 08:55] LABS: Anion Gap 11.7 mmol/L (3-11); BUN 7 mg/dL (7-18); CO2 26.3 mmol/L (21.0-32.0); CREATININE 0.77 mg/dL (0.55-1.02); Calcium 9.2 mg/dL (8.5-10.1); Chloride 104 mmol/L (98-107); Glucose 128 mg/dL (70-100); Magnesium 1.8 mg/dL (1.8-2.4); Potassium 3.9 mmol/L (3.5-5.1); Sodium 142 mmol/L (136-145)
[2019-01-25 09:06] LABS: Absolute Eosinophil Count 0.31 k/cumm (0.0-0.7); Absolute Lymphocyte Count 2.79 k/cumm (1.2-3.4); Absolute Monocyte Count 1.14 k/cumm (0.11-0.7); Absolute Neutrophil Count 5.78 k/cumm (1.2-6.7); Atypical Lymphocytes % 2
[2019-01-25 09:07] LABS: Diff Comment Manual Differential
[2019-01-25 09:09] LABS: Anisocytosis 2+; Hypochromasia 1+
--- NOTE | 2019-01-25 11:17 | DSE_ITS ---
Date of service: 01/25/19 Time of Service: 11:17 DS: Diagnosis Discharge Diagnosis (1) Colitis: Start date: 01/25/19 Start time: 11:17 Status: Acute Asessment and Plan: Improving. Cdiff PCR still pending. Treat colitis for full 14 day course with flagyl will send home with flagyl PO for finished course of antibiotic. Awaiting call from Dr. Eunice [facility] to set up appt with colonoscopy. (2) COPD with acute exacerbation: Start date: 01/25/19 Start time: 11:18 Status: Acute Asessment and Plan: Patient feels breathing is better than baseline. No cough or sputum production. Rhonchi bilaterally. (3) Systemic lupus erythematosus: Start date: 01/25/19 Start time: : Status: Acute Asessment and Plan: On prednisone 5 mg daily. Continue dose. (4) GERD (gastroesophageal reflux disease): Status: Chronic (5) Depressive disorder: Status: Acute (6) DVT prophylaxis: Status: Acute (7) Advanced directives, counseling/discussion: Status: Acute Discharge Plan Disposition Patient Disposition: HOME Condition: Improving Discharge Details Chief Complaint: Abd Prob Clinical Impression: Colitis Reason For Visit: COLITIS Admit Date/Time: 01/21/19 16:03 Admit Provider: Lester Meadows Attending Provider: Lester Meadows Primary Care Provider: Katina Lopez ED Provider: Amanda Dill Hospital Course Hospital Course: 73 y.o F with PMH of COPD, HTN, MS, GERD, Depression and osteoprosis, also steroid dependence takes 5 mg daily po. Admitted to m/s at [facility] from emergency department on 01/21 for acute colitis with chronic diarrhea of unknown etiology. She reported chronic diarrhea, ongoing for approximately 2 years, for which she has undergone a colonoscopy in the May 2017, reportedly benign. Her diarrhea reportedly worsened over this past summer, culminating in weight loss and decreased oral intake. The patient had significant worsening in her oral intake, with continuous nausea and vomiting and inability to keep food down prior to admission. Course of hospitalization included mild leukocytosis, hypokalemia, CT of chest and abdomen in the ED revealed opacity in LLL suspicious for either atelectasis or pneumonia as well as suspicion for infectious vs inflammatory colitis. On adm ission she had severe abdominal pain with n/v and diarrhea. Cdiff culture was indeterminiate, PCR sent and pending, doubt CDI but will treat with 14 day course of flagyl, probiotic TID. Patient was having upwards of 4-9 BM in a 24 hour period. Started on cholestyramine and now having 2 soft bm since last evening. Fecal leuks were positive. She was also found to have suspicion for pneumonia and started on Ceftriaxone. She received a full 3 days of both ceftriaxone and flagyl along with stress dose steroids for history of adrenal insufficiency which she appears to be better than baseline with respiratory status. She was afebrile, no cough, blood cultures NGTD. WBC have normalized. She feels well enough to go home. Her baseline for respiratory is SOB with talking. She feels improved though I do feel she could benefit from increased strength and better breathers. Assessment today reveals no abdominal pain, no nausea and vomiting, tolerating meals PT evaluated her and agree she could use strength training. She will be discharged home but will need a 10 day course of po flagyl to finish up at home. She will be on a probitoic TID, and cholestyramine BID. DO NOT TAKE IMODIUM. She will [place] ve PT/OT Nursing services better breathers. She will need to follow up with GI at [facility] Dr. Dawson for colonoscopy, they will contact her. She denies CP, N/V/D Home Meds and New Rx's Prescriptions: New metronidazole 500 mg Tablet 500 mg PO TID 10 Days Qty: 30 RF: 0 Prevalite 4 gram Powder In Packet 1 ea PO BID Qty: 30 RF: 0 Bio-K plus 50 billion cell capsule,delayed release(DR/EC) 1 cap PO TID Qty: 90 RF: 0 ondansetron HCl [Zofran] 4 mg tablet 4 mg PO Q8H PRN (Reason: nausea and vomiting) Qty: 10 RF: 0 Continued leflunomide 10 mg tablet 10 mg PO DAILY Qty: 90 RF: 4 Incruse Ellipta 62.5 mcg/actuation blister with device 1 inh Inhalation DAILY Qty: 1 RF: 12 albuterol sulfate [Ventolin HFA] 90 mcg/actuation HFA aerosol inhaler 2 puff Inhalation Q4H PRN PRN (Reason: bronchospasm) Qty: 18 RF: 6 calcium carbonate-vitamin D3 1 EACH tablet 1 ea PO DAILY Qty: 90 RF: 6 pantoprazole 40 mg tablet,delayed release (DR/EC) 40 mg PO DAILY@0730 Qty: 90 RF: 2 venlafaxine 75 mg capsule,extended release 24hr 75 mg PO DAILY Qty: 90 RF: 4 venlafaxine 150 mg capsule,extended release 24hr 150 mg PO DAILY Qty: 90 RF: 4 enalapril maleate [Vasotec] 20 mg tablet 10 - 20 mg PO BID Qty: 45 RF: 12 clonazepam 1 mg tablet 1 mg PO QPM PRN (Reason: anxiety) Qty: 30 RF: 0 prednisone 5 mg tablet 5 - 10 mg PO DAILY Qty: 90 RF: 4 amlodipine 10 mg tablet 10 mg PO DAILY Qty: 90 RF: 4 budesonide 0.5 mg/2 mL suspension for nebulization 0.5 mg Inhalation BID RF: 0 Discharge Instructions Instructions: Probiotic (By mouth), [place] Disease (GEN), Antibiotic Resistant Bacteria (GEN), COPD (Chronic Obstructive Pulmonary Disease) (GEN), Infectious Colitis (GEN), How Your Lungs Work (GEN) Additional Instructions: Resume Prednisone 5 mg tomorrow Take all antibiotic as directed. 1 tap three times a day for 10 days Take probiotic three times a day Physical therapy and Occupational therapy to help you gain strength Better breathers to help optimize lung function Follow up with [facility] they should be calling to set up an appt. Seek medical attention immediately if you have chest pain, shortness of breath, nausea, vomiting diarrhea. Activity:: Activity as Tolerated Equipment/Supplies:: No Equipment Needed Diet:: As Tolerated Discharge Orders Discharge Orders: Discharge Order (Routine); Ordered 01/25/19 Ordered By: Yesi Garnett DS: Summary Status at Discharge Functional status at discharge: independent ambulation Overall status at discharge: patient is back to baseline Mental Status: mental status grossly normal Speech and Movement: speech and movement normal Mood: congruent mood Affect: normal affect Exam Narrative Exam Narrative: General: Patient appears chronically ill but not toxic, thin and slightly cachectic in appearance, AAOX3, NAD Neck: Supple CV: Regular, tachycardic, S1S2, No rubs, murmurs, or gallops. Pulmonary: rhonchi, bilaterally, however patient endorses feeling and breathing better than baseline. Abdomen: + Bowel Sounds, soft, nondistended, no abdominal pain. No evidence of an acute abdomen. Vascular: No lower extremity edema Psych: Normal mood and affect. Psych Mental Status: mental status grossly normal Speech and Movement: speech and movement normal Mood: congruent mood Affect: normal affect DS: Data Vitals/I&O Vitals and I&O: Vital Signs Temperature 36.8 C 01/25/19 07:22 Temperature Source Tympanic 01/25/19 07:22 Pulse 97 H 01/25/19 07:22 Pulse Rhythm Regular 01/25/19 07:33 Pulse 125 H 01/21/19 16:31 Respiratory Rate 23 01/25/19 07:22 Respiratory Effort Incrsd Work of Breathing 01/25/19 07:33 Respiratory Depth Shallow 01/25/19 07:33 Respiratory Pattern Normal 01/25/19 07:33 Blood Pressure 143/83 H 01/25/19 07:22 Blood Pressure Mean 86 01/21/19 16:30 Blood Pressure Position Supine 01/21/19 11:16 Pulse Oximetry 94 L 01/25/19 07:22 Oxygen Delivery Method Room Air 01/25/19 07:22 Oxygen Flow Rate 0 01/25/19 07:22 Pain Level 0 01/25/19 07:22 Comment 01/23/19 20:50 Intake & Output 01/24/19 01/24/19 01/25/19 11:59 23:59 11:59 Intake Total 800 / 1660 860 / 1660 600 / 600 Output Total 2300 / 3300 1000 / 3300 1500 / 1500 Balance -1500 / -1640 -140 / -1640 -900 / -900 Weight 44.6 kg 44.2 kg Intake: IV 110 / 110 Oral 690 / 1550 860 / 1550 600 / 600 Output: Urine 2300 / 3300 1000 / 3300 1500 / 1500 Other: Urine Color Yellow Yellow Yellow Urine Appearance Clear Clear Clear Urine Odor None Normal None Comment p.t independent Stool Size Moderate Stool Characteristics Liquid Voiding Methods Toilet Toilet Toilet Data Completed and Pending Completed studies during hospitalization [Text1]: ABDOMEN AND PELVIS: Liver: The liver is normal in size. There is an area of decreased attenuation adjacent to the ligamentum teres. There is no distortion of the hepatic architecture in this region. This likely reflects focal fatty infiltration. There are tiny hypodensities seen in the liver that are too small for further characterization. They likely reflect small cysts. No suspicious hepatic mass is present. The portal, superior mesenteric, and splenic veins are patent. Gallbladder: Unremarkable. No biliary ductal dilatation. Pancreas: Unremarkable Spleen: Unremarkable. Adrenal glands: Unremarkable. Kidneys: There are multiple hypodense nodules within the kidneys bilaterally. They are too small for further characterization. They likely reflect small cysts. No suspicious solid renal mass is present. There is no evidence of obstructive uropathy. Urinary bladder: Unremarkable. Reproductive organs: Unremarkable as visualized. Abdominal aorta: No aneurysm. Atherosclerosis. Lymph nodes: Unremarkable. Bowel: There is thickening of the wall of the distal sigmoid colon. No pericolonic inflammatory changes are present. This may be due to underdistention. However, infectious or inflammatory colitis cannot be excluded. There is also bowel wall thickening seen in the descending colon. There does appear to be mild increased attenuation in the surrounding fat. Colitis is suspected. There is no evidence of acute appendicitis. Other: No evidence of ascites or free air. Bones: Osteopenia. Intramedullary nilay and screw in the proximal right femur. Degenerative changes in the spine. There is air seen in the epidural space posterior to the L4-L5 disc space. This may be secondary to the degenerative changes. CHEST: Aorta: Atherosclerosis no evidence of aneurysm or dissection. Pulmonary arteries: No evidence of pulmonary emboli Heart: No cardiomegaly. No pericardial effusion. Coronary artery calcifications. Lymph nodes: No adenopathy. Parenchyma: Scarring or atelectasis in the right middle lobe and lingula. Pulmonary fibrosis. Opacity in the left lower lobe. This may represent atelectasis or pneumonia. Tracheobronchial tree: Unremarkable. Bones: Compression deformities of the T3 and T6 vertebral bodies. These are old. Degenerative changes are seen in the spine. IMPRESSION: 1. Findings suspicious for inflammatory or infectious colitis involving the descending and sigmoid colon. 2. No evidence of pulmonary embolus, thoracic aortic dissection, or aneurysm 3. Opacity in the left lower lobe. This may represent atelectasis or pneumonia. Labs on day of discharge: Labs from last 24 hours 01/25/19 01/25/19 08:35 08:35 WBC 10.32 D RBC 5.16 Hgb 12.9 Hct 41.6 MCV 80.6 MCH 25.0 L MCHC 31.0 L RDW 16.6 H Plt Count 451 H MPV 10.3 Immature Gran % See Differential Neutrophils % 56.0 Lymphocytes % 25.0 Atypical Lymphs % 2 Monocytes % 11.0 Eosinophils % 3.0 Basophils % 0.0 Metamyelocytes % 3.0 Absolute Neutrophils 5.78 Absolute Lymphocytes 2.79 Absolute Monocytes 1.14 H Absolute Eosinophils 0.31 Absolute Basophils 0.00 Differential Comment Manual differential RBC Morphology See below Hypochromasia 1+ Anisocytosis 2+ Sodium 142 Potassium 3.9 Chloride 104 Carbon Dioxide 26.3 Anion Gap 11.7 H BUN 7 Creatinine 0.77 Estimated GFR/1.73 m2 >= 60.00 Glucose 128 H Calcium 9.2 Magnesium 1.8 PFSH Medical History Acute and chronic respiratory failure with hypoxia (Acute) Koch's palsy Bronchiectasis (Chronic) Chronic adrenal insufficiency (Chronic) Chronic tachycardia (Chronic) Chronic use of steroids (Chronic) COPD (chronic obstructive pulmonary disease) COPD with acute exacerbation (Acute) Depression GERD (gastroesophageal reflux disease) Goals of care, counseling/discussion (Acute) Hx of breast cancer s/p B mastectomies and tamoxifen. Did not require chemo or XRT. Hx of cancer of uterus (Chronic) Hx of cervical cancer (Chronic) Hypertension Hypoxia (Chronic) IBS (irritable bowel syndrome) (Chronic) ILD (interstitial lung disease) (Suspected) Insomnia (Chronic) Lupus nephritis (Chronic) Multiple sclerosis Osteoarthritis (Chronic) Osteoporosis Palliative care patient (Chronic) Rheumatoid arthritis (Chronic) RLS (restless legs syndrome) (Chronic) SLE (systemic lupus erythematosus) Surgical History Bilateral salpingectomy with oophorectomy Breast, Mastectomy Bilateral RIGHT-LYMPHEDEMA, LEFT CA Colonoscopy - [facility] (06/03/17) 2005 Extraction of cataract 01/19/16-RIGHT Fracture, Open Treatment (10/01/14) OPEN REDUCTION/INTERNAL FIXATION W/GAMMA LONG LOCKED NAIL FIXATION RT FEMUR F ERIKA/DR WEEMS History of appendectomy (Chronic) History of right shoulder replacement (Resolved) History of surgery on right wrist (Resolved) Hysterectomy, Laproscopic Personal history of bleeding following renal biopsy (Resolved) Pilonidal cyst (Resolved) S/P hip hemiarthroplasty (Resolved) bilateral S/P tonsillectomy (Resolved) Family History Father , age 82 Heart disease Stroke Hypertension Parkinson disease Mother , aged 92 from COPD Hypertension COPD (chronic obstructive pulmonary disease) Brother No problems noted. Daughter Ulcerative colitis Rheumatoid arthritis Daughter No problems noted. Social History Smoking/Tobacco Use Status: Former Tobacco Use Pack-years: 30 Tobacco: How many years used: 30 Second Hand Exposure: Yes Counseling given: counseling >3 minutes Alcohol Intake: never Drug use: Rarely Substance use type: marijuana Caregiver/Support person: Yes Household members: spouse Housing: house Number of Children: 2 Communication Needs: None Education Level: high school current occupation: retired from [employer] Pets and animals: No What is your relationship status?: How often do you talk on the phone with friends or family?: three or more times per week How often do you get together with friends or relatives?: twice per week Panel score (0-1 are the most socially isolated patients): 2 What type of physical activity do you participate in: none Agree to transfusion: Yes Do you feel safe at home: Yes Do you feel safe in your relationship?: Yes
--- NOTE | 2019-01-25 12:17 | PDOC.HHF2F_ITS ---
Home Health Certification Home Health Certification: 1. Encounter Date and Reason I certify that STEVEN CARRINGTON was seen by Yesi Garnett on 01/25/19 and that I had a [id number] encounter with this patient that meets the physician face to face encounter requirements. 2. Clinical Findings Supporting Skilled Need and Homebound Status I certify that home health services are medically necessary, include either intermittent nursing home and/or physical/speech therapy, and that this pat ient is homebound in that absences from the home require considerable and taxing effort and are infrequent or of short duration, or are attributable to the need to receive medical care. [X] (a) Attached documentation from encounter provides clinical findings supporting skilled need and homebound status (including what assistance patient requires to leave the home). The encounter with the patient was in whole, or in part, for the following medical condition, which is the primary reason for home health care: COLITIS Assisted: Patient would benefit from better breathers, home nursing services Physical Therapy: Patient would benefit for PT/OT to gain strength and increase muscle tone Speech Therapy: Homebound: Unable to leave home without assistance 3. Certification and Authentication I certify that I composed the above information based on my clinical judgement relating to this patient's medical condition and, if applicable, clinical findings communicated to me by the NPP or inpatient physician who performed the Home Health Referral. All further orders will be obtained through (Community Based Physician - PCP)
--- NOTE | 2019-01-25 12:25 | IN_ITS ---
Date of service: 01/25/19 Time of Service: 12:25 PT Notes Inpatient Physical Therapy Evaluation Date: 01/25/2019 Referring Doctor: Yesi Garnett NP PT Orders: PT CONSULT: Safety consult for DC Precautions: [] Patient Profile/Admitting Diagnosis: Colitis/COPD PMHX: RA, lupus and chronic diarrhea Social History/Home Situation: , lives in a 3 story home, spends most of her day on the couch and climbs 5 stairs to her bedroom. Current Functional Limitations: Independent with dressing and bathing. Her does the cooking Equipment Owned/DME: Walk-in shower with a shower seat and flexible shower hose. Subjective: Patient states she is anxious to return home and feels that she is capable of safely existing there. She notes that her breathing is been her limiting factor with her activity, but notes that it has improved since her admission. She complains of occasional locking of the left middle finger with active movements. Objective: [] General Observation: Pleasant, cooperative Mental Status: Alert and oriented x3 Pain: No complaints of pain offered Vital Signs: Resting pulse is 123 bpm and O2 sat is 92%; after standing and walking a few feet. Pulse was 143 beats per minute and O2 sat was 94%. Her respiratory increased by 6 to 8 breaths/min. ROM: Her active right shoulder motion is limited to approximately 30 degrees and associated with excessive scapular substitution. Her passive motion is approximately 90-100 degrees. She will reach behind her back in her thumb is at the T12 level. Her active assistive external rotation is 45 degrees and internal rotation at 60 degrees. She status post right TSA approximately 30 years ago. She is good functional range of motion of her left shoulder bilateral elbows forearms. She has a fused right wrist. She has a trigger finger of the left middle finger and tenderness at the MP joint. Bilateral hip, knee, talocrural and subtalar movements in good functional range of motion without pain on movement Strength: Full motor control throughout with intrinsic wasting of her hands left greater than right. She has a positive drop arm test right shoulder and her scaption and pure abduction is at 1/5. Her external and internal rotation is rated +4/5. Her lower extremity strength is generally rated +4/5 Sensation: Intact to light touch Bed Mobility/Transfers: Independent with assuming the supine to sitting, sitting to standing positions and vice versa. Gait: Ambulates without assistive device for approximately 10 feet before fatiguing. She has a stable gait Balance: Cuevas balance test was performed and she scored greater than a 50. Scores of 45 and under indicates a fall risk Static Sitting: Good Dynamic Sitting: Good Static Standing: Good Dynamic Standing: Good Special Tests: Mobility Limitations Standardized Measure [facility] AM-PAC 6 clicks Basic Mobility Inpatient Short Form: Raw Score: 0 standardized Score: [] CMS Score: [] CMS Modifier: CH Informed Consent/Education: Patient instructed in purpose of PT consult and plan of care. Assessment: Patient is a 73 year [facility] of colitis/COPD. Patient presents with clinical signs and symptoms consistent with these diagnoses, as demonstrated by the following impairment level findings: Difficulty with any sustained activity due to her COPD she is independent with all bed mobility activities and has a stable gait. She feels that her breathing is better than she is been in the hospital most likely due to her steroids. She appears to have a trigger finger of her left middle finger, and this continues to be problematic recommend that she contact local orthopedist. 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 Patient is assessed as a [] Moderate 13627 complexity based on the following: History: See comorbidities and social history Examination: See above for functional mutations impairments Presentation: Evolving Decision Making: Moderate complexity based on her clinical findings Goals: Increase strength and endurance with home excise program Plan of Care/Treatment Plan: They session consisted of the evaluation, patient education regarding home excise program for isotonic PRE to the quads and upper extremities. DISCHARGE RECOMMENDATIONS: Home TREATMENT CODE/TIME: 9716 2/45 minutes Disclaimer: This note was created using [employer] voice recognition software. It was reviewed for major content. However, there may be multiple small discrepancies and errors due to the voice recognition aspects of the software.
--- NOTE | 2019-01-25 14:11 | CMDISCH_ITS ---
LACE Index Scoring Tool - Questions: Length of Stay (in days): 4 - 6 Acuity (Admit via E.D.?): Yes Comorbidities: Chronic Pulmonary Disease, Any Tumor, Connective Tissue Disease E.D. Visits: 2 - Answers: Total Score: 14 Risk of Readmission: High Risk Care Management Discharge Reason for Hospitalization: Colitis Discharge Plan: Rafaela will return home when ready per MD. She will have new orders for RN/PT (including better breathers) and OT through [facility]. Referral faxed to [facility] for options counseling and MOW. Rafaela will have a follow up appt with GI to set up outpatient colonoscopy with Dr. Dawson at [facility]. CM continues to follow. Patient/Family Education Needs: Review of discharge instructions, discuss Ask Me Three. Services Needed at Discharge: Home Delivered Meals, Home Health Care Services ([facility]--RN, PT ([facility]), OT, [facility]--M[facility], [facility] Counseling )
== END 2019-01-25 14:30 | disposition home health service (06) | DRG 391 ==
LOC: ER 16:47 → MS 16:51
PROVIDERS: Nurse Practitioner Family; Admitting Provider Internal Medicine; Emergency Provider Physician Assistant; PCP Family Medicine; Visit Provider Internal Medicine
DX: A09 Infectious gastroenteritis and colitis, unspecified (principal); J18.1 Lobar pneumonia, unspecified organism; J44.1 Chronic obstructive pulmonary disease with (acute) exacerbation; E27.40 Unspecified adrenocortical insufficiency; J44.0 Chronic obstructive pulmonary disease with (acute) lower respiratory infection; K55.9 Vascular disorder of intestine, unspecified; K52.9 Noninfective gastroenteritis and colitis, unspecified; M32.9 Systemic lupus erythematosus, unspecified; K21.9 Gastro-esophageal reflux disease without esophagitis; F32.9 Major depressive disorder, single episode, unspecified; G35 Multiple sclerosis; Z79.52 Long term (current) use of systemic steroids
CPT/HCPCS: 36415; 71275; 74177; 80048; 80053; 83690; 87505; 93005; 94640; 96360; 97162; 99222; 99232; 99233; 99239; 99285; J1650; 81003; 81015; 83630; 83735; 84484; 85025; 85610; 85730; 87324; 87798; 93010; 99284; J1720; J3490; J7512; J7626